=== PATIENT | female | born 1985 | race Caucasian/White ===

== ENCOUNTER → 2018-04-28 11:00 | Outpatient (CLI) | payer OTHER, SELFPAY ==
[2018-05-05 14:23] LABS: HPV APTIMA, High Risk Negative (Negative)
== END ==
PROVIDERS: Family Provider Family Medicine; PCP Family Medicine; Referring Provider Obstetrics & Gynecology; Visit Provider Obstetrics & Gynecology
DX: Z12.4 Encounter for screening for malignant neoplasm of cervix (principal)
CPT/HCPCS: 88175; G0145

== ENCOUNTER → 2018-04-29 09:00 | Outpatient (CLI) | payer OTHER, SELFPAY ==
[2018-04-29 09:58] LABS: Cholesterol 216 mg/dL (200); Glucose 97 mg/dL (74-106); High Density Lipoprotein 43 mg/dL; Thyroid Stim Hormone (TSH) 1.75 uIU/mL (0.358-3.74); Triglycerides 96 mg/dL; Very Low Density Lipoprotein 19 mg/dL (5-40)
[2018-05-01 14:06] LABS: DHEA Sulfate 110.9 ug/dL (84.8-378.0)
[2018-05-03 11:55] LABS: Testosterone Free 0.7 pg/mL (0.0-4.2)
[2018-05-05 14:23] LABS: 17-Hydroxyprogesterone 50 ng/dL (.)
== END ==
PROVIDERS: Family Provider Family Medicine; PCP Family Medicine; Visit Provider Obstetrics & Gynecology
DX: E28.2 Polycystic ovarian syndrome (principal)
CPT/HCPCS: 36415; 80061; 82627; 82947; 83498; 84402; 84443; 82626

== ENCOUNTER → 2018-12-15 | Outpatient (CLI) | payer OTHER, SELFPAY ==
[2018-08-02 09:00] VITALS: BMI 33.7
[2018-12-15 12:35] LABS: Absolute Lymphocyte Count 1.77 X10^3/ul (0.83-4.51); Absolute Neutrophil Count 2.8 X10^3/uL (2.0-7.7); Basophil# 0.02 X10^3/uL; Basophil% 0.4 % (0-1); Eosinophil# 0.12 X10^3/uL; Eosinophils% 2.4 % (0-5); Hematocrit 37.9 % (37-47); Hemoglobin 12.8 g/dl (12.0-15.0); Lymphocyte # 1.77 X10^3/ul (4.0); Lymphocyte % 34.8 % (19-41); Mean Corp Hgb Conc 33.8 g/gl (32-36); Mean Corpuscular Hgb 29.6 pg (27.0-32.0); Mean Corpuscular Volume 87.5 fL (81-99); Mean Platelet Vol. 11.4 fl (6.2-12.0); Monocyte# 0.33 X10^3/uL; Monocyte% 6.5 % (0-10); Neutrophil # 2.84 X10^3/uL (2.7-7.7); Neutrophil % 55.7 % (47-70); Platelet Count 257 K/mm3 (150-450); RBC Distribution Width CV 13.4 % (11.6-14.6); RBC Distribution Width SD 41.8 fl (35.1-43.9); Red Blood Count 4.33 M/mm3 (4.2-5.4); White Blood Count 5.1 K/mm3 (4.4-11.0)
[2018-12-15 12:40] LABS: POSITIVE COUNT NO; POSITIVE DIFFERENTIAL NO; POSITIVE MORPHOLOGY NO
[2018-12-15 13:09] LABS: AST(SGOT) 19 U/L (15-37); Alanine Aminotransfer ALT/SGPT 29 U/L (13-56); Albumin, Serum 3.6 g/dL (3.2-5.0); Alkaline Phosphatase 53 U/L (45-117); Anion Gap 8 (5-15); BUN 12 mg/dL (7-18); BUN/Creat Ratio 15.3 RATIO (10-20); Calcium,Total 8.7 mg/dL (8.5-10.1); Chloride 107 mmol/L (98-107); Creatinine, Serum 0.78 mg/dL (0.55-1.02); EST Glomerular Filtration Rate 90 mL/min (>60); Est Glom Filt Rate - Afr Amer 109 mL/min (>60); Ferritin 12 ng/mL (8-252); Globulin 3.5 g/dL (2.2-4.2); Glucose 90 mg/dL (74-106); Potassium 4.3 mmol/L (3.5-5.1); Protein, Total 7.1 g/dL (6.4-8.2); Sodium Level 141 mmol/L (136-145); Thyroid Stim Hormone (TSH) 1.44 uIU/mL (0.358-3.74)
== END | disposition home or self-care (01) ==
LOC: MFPLAB 10:43
PROVIDERS: Family Provider Family Medicine; PCP Family Medicine; Referring Provider Family Medicine; Visit Provider Family Medicine
DX: N92.0 Excessive and frequent menstruation with regular cycle (principal)
CPT/HCPCS: 36415; 80053; 82728; 84443; 85025

== ENCOUNTER 2019-05-31 19:20 | Inpatient (IN) | payer OTHER, SELFPAY ==
[2018-08-02 09:00] VITALS: BMI 33.7
[2019-05-31 20:40] LABS: Absolute Lymphocyte Count 2.02 X10^3/uL (0.83-4.51); Absolute Neutrophil Count 5.1 X10^3/uL (2.0-7.7); Basophil# 0.04 X10^3/uL; Basophil% 0.5 % (0-1); Eosinophil# 0.11 X10^3/uL; Eosinophils% 1.4 % (0-5); Hematocrit 38.3 % (37-47); Hemoglobin 12.9 g/dL (12.0-15.0); Lymphocyte # 2.02 X10^3/ul (4.0); Lymphocyte % 25.8 % (19-41); Mean Corp Hgb Conc 33.7 g/dL (32-36); Mean Corpuscular Hgb 30.5 pg (27.0-32.0); Mean Corpuscular Volume 90.5 fL (81-99); Mean Platelet Vol. 11.2 fl (6.2-12.0); Monocyte# 0.53 X10^3/uL; Monocyte% 6.8 % (0-10); NRBC Flagged by Analyzer 0 % (0-5); Neutrophil % 65.2 % (47-70); Platelet Count 238 K/mm3 (150-450); RBC Distribution Width CV 13.3 % (11.6-14.6); RBC Distribution Width SD 43.8 fl (35.1-43.9); Red Blood Count 4.23 M/mm3 (4.2-5.4); White Blood Count 7.8 K/mm3 (4.4-11.0)
[2019-05-31] MEDS: miSOPROStol 200 MCG Tablet 400 MCG VAGINAL (21:08)
--- NOTE | 2019-05-31 21:11 | HP.PCM_ITS ---
History Date of Admission: 05/31/19 Final BEVERLY: 10/16/19 Final BEVERLY Source: US <20 weeks Gestational age: 20 Weeks and 2 Days History of this : This is a 34 year-old, 2 para 1-0-0-1 presents at 20-2/7 weeks gestation with EDC of 10/16/2019 for induction due to intrauterine demise. Patient came to the office this week for her anatomy scan was found to have a 17-week size demise. She denies any vaginal bleeding or leaking of fluid. Her previous delivery was a section. Surgical History: Surgical History (Last Reviewed 08/02/18 @ 09:01 by Carmita Almanza) deliv due to previous difficult deliv, deliv, curr hospitaliz O99.89, Z87.59 H/O LEEP Z98.890 Allergies amoxicillin [From Augmentin] Adverse Reaction (Unknown, Verified 08/02/18 09:00) intolerant clavulanic acid [From Augmentin] Adverse Reaction (Unknown, Verified 08/02/18 09:00) intolerant Home Medications: Home Medications phentermine 37.5 mg tablet 37.5 mg PO QDAY #30 tab 08/05/18 Smoking Status: Never smoker History Past Pregnancies: Past Pregnancies Delivery Date Name GA/ Weeks Outcome Route Wt Infant Sex Labor Length Anesthesia Delivery Location Provider FOB Review of Systems Constitutional: Denies: Anorexia, Chills, Fever Eyes: Denies: Blurred vision Cardiovascular: Denies: Chest Pain, Edema Respiratory: Denies: Cough, Shortness of Breath Gastrointestinal: Reports: Abdominal Pain - mild cramping Genitourinary: Denies: Dysuria, Frequency Skin: Denies: Rash Neurological: Denies: Blurred vision Physical Exam General: Alert, Cooperative, No apparent distress HEENT: Normocephalic Cardiovascular: Regular rate Lungs: Normal air movement Abdomen: Soft, Non-Distended, Gravid, Appropriate for Gestational Age Extremities:: No edema Neurological: Cranial nerves II-XII grossly intact POSTAL SERVICE MAIL PROCESSOR: Normal external genitalia Estimated gestational size: Appropriate for gestational size Presentation: Cephalic Assessment/Plan All Active Problems (Last Reviewed 08/02/18 @ 09:01 by Carmita Almanza) BMI 33.0-33.9,adult (Acute) PCOS (polycystic ovarian syndrome) (Acute) Oligomenorrhea (Ruled-out) This is a 34 year-old, 2 para 1 at 20-2/7 weeks with 17-week size intrauterine demise. Risk benefits and alternatives to induction versus D&E were discussed with the patient, her questions were answered to her satisfaction she desired to proceed with induction. We discussed risk of Cytotec induction. Patient had 2 laminaria placed in the office today. The 2 sponges and 2 laminaria placed in the office were removed and counted. Discussed with the patient may she may have IV pain medication or epidural as she desires for pain control. She does desire genetic testing.
[2019-05-31 23:41] VITALS: BMI 32.3
[2019-06-01] MEDS: miSOPROStol 200 MCG Tablet 400 MCG VAGINAL (01:04)
[2019-06-01] MEDS: morphine 10 MG/ML Syringe IV ×2 (01:04→03:30)
[2019-06-01] MEDS: 0.9% Saline Lock 10 ML Syringe IV ×3 (01:05→03:37)
[2019-06-01] MEDS: Ondansetron 4 MG/2 ML Vial IV (03:30)
[2019-06-01] MEDS: Lactated Ringers 1,000 ML 50 ML IV (03:39)
[2019-06-01] MEDS: Lactated Ringers 500 ML 999 ML IV (03:42)
--- NOTE | 2019-06-01 04:49 | PCM.OPRPT ---
Vaginal Delivery Maternal Presentation: Medically Indicated Induction Method of Induction: Cytotec, - - Laminaria (done in the office) Medical Reason for Induction: - - intrauterine demise Amniotic Membrane Rupture Type: - - delivered intact sac/placenta with fetus Rupture of Membrane time: n/a Amniotic Fluid Description: Bloody Final BEVERLY: 10/16/19 Gestational age: 20 Weeks and 3 Days Date of Procedure: 06/01/19 Pre-Operative Diagnosis: intrauterine demise Post-Operative Diagnosis: same Surgery/ Procedure Performed: Spontaneous Vaginal Delivery Type of Anesthesia: - - IV medications Description of Procedure: The patient began to feel pressure. When she was examined, no cervix was identified and the sac was in the vaginal vault. The patient pushed and delivered the fetus and placenta intact. Bleeding was minimal. There were no lacerations. Fundus was firm. The membranes were then ruptured for some blood-tinged fluid and the cord was clamped and cut. With the uterus being firm, her minimal bleeding and the cytotec she has been receiving, will hold on pitocin for now and initiate if needed Placental Delivery Description: Spontaneous Placenta Disposition: Sent to Pathology Cord Entanglement: None Drain: - - none Estimated Blood Loss: 100 Infant A gender: Male (1 minute): 0 (5 minute): 0 Episiotomy Description: None Laceration: None Medications given after delivery: - - bleeding minimal, uterus firm, had misoprostol Complications: None
--- NOTE | 2019-06-01 05:00 | PLAC_PTH ---
PATIENT: GOMEZ ROWLAND LOC: [facility] U#:[id number] AGE/SX: 34/F ROOM: WP021 RE05/31/[address]: Dr. Therese Bess MD : [id number] BED: 1 DIS: 06/01/2019 SPEC #: [id number] RECD: 06/01/19 08:55 STATUS: SIDNEY RELavonne #: [id number] CHARLES: 06/01/19 05:[address]: Therese Bess DEPT: SURGICAL PATHOLOGY RECD BY: Carli Lamb ENTERED: 06/01/19 10:06 SP TYPE: PLACENTA OTHR DR: Dr. Ricardo Jacinto MD Tissues: Placenta, NOS Procedures: Surgery Specimen Level V HEADER OPERATION: Vaginal delivery PRE-OP DIAGNOSIS: IUFD, 20 weeks gestation age, 17 week size TISSUE SUBMITTED: Placenta MICROSCOPIC DIAGNOSIS Palmer placenta (61 gm): Umbilical cord - trivascular with no inflammation. Placental membranes - acute deciduitis with bacterial colonies. Placental disc - increased intraparenchymal fibrin plaques. AM:joan 06/02/19 COMMENT Case has been reviewed in consultation with Dr. Potter who concurs with the above diagnosis. IDC:SJ MICROSCOPIC DESCRIPTION Slides are reviewed. GROSS DESCRIPTION SPECIMEN: PLACENTA The specimen is received in container without fixative. One of the small sections of placenta is received in a small container measuring 3 x 2.5 x 1 cm. This piece Is submitted Anora studies. / CLINICAL INFORMATION: A. Weight: Not noted B. Gestational Age: 20 weeks C. Sex: Male PLACENTAL WEIGHT (POST FIXATION): 61 gm PLACENTAL DIMENSIONS: 10 x 8 x 1.5 cm PLACENTAL SHAPE: Usual ovoid PLACENTAL WEIGHT FOR GESTATIONAL AGE: Within 10-99th percentile MEMBRANES - Present A. Insertion: Marginal B. Site of rupture from edge: At edge of placental disc C. Color of membrane: Zaman-sommers D. Abnormalities: None UMBILICAL CORD - Present A. Color: Zaman-sommers B. Insertion: Paracentral C. Length: 6 m D. Diameter: 0.6 cm. It appears to be macerated. E. Number of vessels: Three F. Abnormalities: None PLACENTAL DISC - Present A. Color of surface: Zaman-sommers B. surface abnormalities: pink-red C. Maternal cotyledons: Intact with minimal tears D. Attached retro placental clot: No clot E. Cut surface: Dark red and spongy F. Lesions: None G. Separate clot: Absent SECTIONS SUBMITTED: 1. Membrane roll 2. Cord, end inked black 3. Placental disc, and maternal surfaces 4. Placental disc, and maternal surfaces 5. Placental disc, and maternal surfaces SJ:rg 06/01/19 TC:2 CPT: 87716 ADDENDUM ADDENDUM ADDENDUM ADDENDUM ADDEND ADDEND ADDEND [facility] 06/27/2019 14:50 ADDEND 06/27/2019 14:50 ADDEND 06/27/2019 14:50 ADDEND 06/27/2019 14:50 ADDEND 06/27/2019 14:50 ANORA MICROARRAY CHROMOSOME ANALYSIS WITH PARENTAL SUPPORT RESULT: Normal male MICROARRAY RESULT: arr(1-22)x2(XY)x1 CLINICAL INTERPRETATION: Normal male result Please see complete above mentioned report in EMR
--- NOTE | 2019-06-01 06:09 | DCINST_ITS ---
Discharge Diet: No Restrictions Discharge Activity: Return to Normal Activity, May Shower, May Take a Tub Bath - in 2 weeks Return to work on:: 06/19/19 May resume sexual activity in: 4-6 weeks Additional Activity Instructions:: Nothing in the vagina for 4-6 weeks. You may return to work/school in 6 weeks. Call your doctor if your incision/area has: Continuous Slow Oozing, Sudden Increased Bleeding, Increased Pain/ Swelling, Increased Redness, Foul Smelling Discharge Call your doctor if you observe: Fever of 101 or Higher Additional Instructions: If you experience any of the following, contact your healthcare provider. * Bleeding that soaks a pad every hour for 2 hours * Fever 100.4 or higher * Unrelieved incision or abdominal pain * Swelling, redness, discharge or bleeding from your incision or episiotomy site * Your incision begins to separate * Problems urinating (including inability to urinate or burning while urinating). * Visual changes * Severe headache * Flu-like symptoms * Pain or redness in one of both of your breasts * Pain, warmth, tenderness or swelling in your legs, especially the calf area * Frequent nausea and vomiting * Symptoms of depression or anxiety If you experience any of the following, call 911 or go to the nearest Emergency Room. * Chest pain * Problems breathing * Seizure activity * Partial or complete paralysis of a body part, slurred speech, weakness or drooping of the face, or a sudden inability to walk or hold your balance Allergies/Adverse Reactions: Allergies amoxicillin [From Augmentin] Adverse Reaction (Unknown, Verified 05/31/19 23:57) Abd cramps/diarrhea clavulanic acid [From Augmentin] Adverse Reaction (Unknown, Verified 05/31/19 23:57) Abd cramps/diarrhea When: Call to make an appointment with your doctor in 6 weeks. If you had elevated Blood Pressure or 4th degree laceration you will need to be seen in 2 weeks. Primary Care Physician: Ricardo Jacinto MD [Primary Care Provider] - Test Results: Test results from this visit will be discussed in further detail at your follow- up appointment, if applicable.
--- NOTE | 2019-06-01 06:41 | NURSING ---
fetus weighs 122grams, length 8 inches and head circumference 4.75 inches.
[2019-06-01] MEDS: Naproxen 250 MG Tablet 500 MG PO (08:04)
[2019-06-01 08:14] VITALS: BP 100/52; PULSE 65; RESP 14; TEMP 37.1
--- NOTE | 2019-06-01 08:15 | PCM.PN.OB ---
Subjective: Patient seen at bedside, doing well. Patient reports good pain control. Mild lochia. Patient requesting DC home today. - Physical Exam Vitals/I&O's: Weight: 85.638 kg Body Mass Index (BMI) 32.3 Intake and Output for Last 24 Hours 05/30/19 05/31/19 06/01/19 23:59 23:59 23:59 Intake Total 502.5 / 502.5 Balance 502.5 / 502.5 Laboratory Results 05/31/19 20:23: WBC 7.8, RBC 4.23, Hgb 12.9, Hct 38.3, MCV 90.5, MCH 30.5, MCHC 33.7, RDW Std Deviation 43.8, RDW Coeff of Nael 13.3, Plt Count 238, MPV 11.2, Immature Gran % (Auto) 0.300, Neut % (Auto) 65.2, Lymph % (Auto) 25.8, Dillon % (Auto) 6.8, Eos % (Auto) 1.4, Baso % (Auto) 0.5, Absolute Neuts (auto) 5.1, Absolute Lymphs (auto) 2.02, Nucleated RBC % 0 05/31/19 20:23: Blood Type O POSITIVE, Antibody Screen NEGATIVE Current Medications Acetaminophen (Tylenol) 1,000 mg PO Q8H PRN PRN PRN Reason: Pain Score 1-3/10 Bisacodyl (Dulcolax) 10 mg RECTAL UD PRN PRN Reason: If no BM Dibucaine (Dibucaine) 1 applic TOPICAL TID PRN PRN; Protocol PRN Reason: Discomfort Hydrocortisone (Hytone) 1 applic TOPICAL TID PRN PRN; Protocol PRN Reason: Discomfort Methylergonovine Maleate (Methergine) 0.2 mg IM X1 PRN PRN Reason: Excess bleeding/uterine atony Naproxen (Naprosyn) 500 mg PO Q8H PRN PRN PRN Reason: Pain Score 4-10/10 Last Admin: 06/01/19 08:04 Dose: 500 mg Documented by: Ondansetron HCl (Zofran) 4 mg IV Q4H PRN PRN PRN Reason: Nausea Prochlorperazine Edisylate (Compazine Iv) 10 mg IV Q6H PRN PRN PRN Reason: NAUSEA/VOMITING Senna/Docusate Sodium (Senokot-S, Vera-Colace) 1 - 2 tablet PO DAILY PRN PRN PRN Reason: Constipation Simethicone (Mylicon) 80 mg PO PCHS PRN PRN Reason: Indigestion/Stomach pain Sodium Chloride () 5 - 15 ml IV UD PRN PRN Reason: SALINE FLUSH Medical Necessity - Tobacco Use Smoking Status: Never smoker Assessment/Plan All Active Problems (Last Reviewed 08/02/18 @ 09:01 by Carmita Almanza) BMI 33.0-33.9,adult (Acute) PCOS (polycystic ovarian syndrome) (Acute) Oligomenorrhea (Ruled-out) PPD#0 s/p demise - vaginal delivery at 20 weeks pt requesting anora testing - to be done when patient is discharged dc home follow in office in 1-2 weeks
--- NOTE | 2019-06-01 12:13 | CASEMGMT ---
Social Work Labor and Delivery Referral Source: Jazmin Vargas RN Reason for referral: Support and resources related to loss Summary: Chart reviewed and noted 17 week loss found at 20 week visit for anatomy scan. Update received from RN. Met with patient/mother of baby (MOB) in room. Also present father of baby (FOB) Tyler Mendez. Introduced to self and reason for visit. Condolences offered. Checked in with how MOB and FOB are doing right now, which MOB states as good as can be expected. MOB reports to be looking forward to going home and just trying to get back to some type of normalcy. 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 FOB works but reports plan to return to work soon. MOB has a 9 year old daughter at home as well. MOB indicates to have a support network in place, with the family seeing a therapist at [facility]. MOB states has already called and left a message to schedule an appointment. MOB tense, sad, teary eyed several times during social work visit, holding FOB's hand. [place] and parents were able to hold [place], which MOB states was helpful. Supportive listening offered. Provided MOB and FOB with some reading material on parents and grief, grief through the holidays, online resources infant loss, and local mental health resources. MOB accepted information offered. Also included this technical writer and editor's card in case MOB has any questions down the road. No other service requested. Plan: MOB and FOB to home today. Grieving resources provided. -REBECCA Fleming, EVENT SALES ASSISTANT
[2019-06-02 13:07] LABS: Pathology Specimen OB SEE PATHOLOGY REPORT
[2019-06-05 09:36] LABS: Pathology Specimen OB SEE PATHOLOGY REPORT
[2019-06-27 09:03] LABS: Pathology Specimen OB SEE PATHOLOGY REPORT
== END 2019-06-01 09:00 | disposition home or self-care (01) | DRG 805 ==
PROVIDERS: Obstetrics & Gynecology; Admitting Provider Obstetrics & Gynecology; Family Provider Family Medicine; PCP Family Medicine; Referring Provider Obstetrics & Gynecology; Visit Provider Obstetrics & Gynecology
DX: O02.1 Missed abortion (principal); O41.1420 Placentitis, second trimester, not applicable or unspecified; Z37.1 Single stillbirth; Z3A.20 20 weeks gestation of pregnancy
CPT/HCPCS: 85025; 86850; 86900; 86901; 88307; 99218; J7120; A4216; G0378; J2405

== ENCOUNTER → 2019-10-03 | Outpatient (CLI) | payer OTHER, SELFPAY ==
[2019-10-03 12:51] LABS: T4 Free Direct 0.93 ng/dL (0.76-1.46); Thyroid Stim Hormone (TSH) 0.98 uIU/mL (0.358-3.74)
== END | disposition home or self-care (01) ==
LOC: MFPLAB 10:33
PROVIDERS: PCP Family Medicine; Referring Provider Family Medicine; Visit Provider Family Medicine
DX: L65.9 Nonscarring hair loss, unspecified (principal)
CPT/HCPCS: 36415; 84439; 84443

== ENCOUNTER → 2020-02-02 | Outpatient (CLI) | payer OTHER, SELFPAY | END | disposition home or self-care (01) | PROVIDERS: PCP Family Medicine; Referring Provider Registered Nurse; Visit Provider Registered Nurse | DX: Z11.59 Encounter for screening for other viral diseases (principal) | CPT/HCPCS: 87635; U0003 ==

== ENCOUNTER 2020-04-01 05:17 | Inpatient (IN) | payer OTHER, SELFPAY ==
--- NOTE | 2020-03-27 10:59 | HP.PCM_ITS ---
History and Physical Date of Admission: 04/01/20 HPI: The patient is a 34 year old female presenting for pre-operative visit. She is scheduled for?, for?h/o prevoius c/s and history of demise on?04/01/2020. ??Procedure discussed along with risks, benefits and complications. ?Other alternatives discussed for management. Consent form signed??Yes.? PAST MEDICAL HISTORY PAST MEDICAL HISTORY Diagnosis Date ? Anemia ? ? Atypical glandular cells of undetermined significance (EVAN) on cervical Pap smear 02/27/2016 ? Bilateral ovarian cysts ? ? follicular; TVUS 10/2011 ? Depressive disorder, not elsewhere classified ? ? Infertility, female ? ? PCOS (polycystic ovarian syndrome) ? ? pmh 06/16/05 ? HGSIL-LEEP ? Vaginal candidiasis ? ? Varicella without mention of complication @ 4yrs of age ? ? PAST SURGICAL HISTORY PAST SURGICAL HISTORY Procedure Laterality Date ? DELIVERY ONLY ? 12/2009 ? , low transverse ? IUD REMOVAL ([facility])_*[place] ? 02/22/2016 ? At [facility] ? OFFICE LEEP ? 2004 ? PAST SURGICAL HISTORY OF ? 3RD GRADE ? NEEDLE REMOVED FROM FOOT ? PAST SURGICAL HISTORY OF ? ? ? WISDOM TEETH EXTRACTED ? ? CURRENT MEDICATIONS Current Outpatient Medications Medication Sig Dispense Refill ? insulin NPH (HumuLIN N,NovoLIN N) pen Inject 40 Units subcutaneously as directed. 32 units at bedtime and 8 units with breakfast 2 Pen 2 ? Insulin Syringe-Needle U-100 0.5 mL 29 gauge x 1/2 use one insulin pen needle daily for insulin injection, brand appropriate to match insulin pen 30 Each 3 ? blood sugar diagnostic test strip 1 Strip four times daily. Use as instructed 120 Strip 9 ? Lancets lancets 1 Each four times daily. Use as instructed 120 Each 9 ? Urine Glucose-Ketones Test (KETO-DIASTIX) strp 1 Strip four times daily. 120 Strip 9 ? labetalol (TRANDATE) 100 mg tablet take 1 tablet by mouth at bedtime for MIGRAINE PREVENTION ? ? ? chlorpheniramine (CHLORTRIMETON) 4 mg tablet take 1 tablet by mouth at bedtime and every 4 hours TO PREVENT MORNING HEADACHE ? ? ? vit 91/iron/folic/dha ( + DHA ORAL) Take by mouth. Taking DHA and seperatly ? ? ? OMEPRAZOLE ORAL Take by mouth. ? ? ? Jhbewrff-Zk-Eam-Fe-FA ( VITAMIN) tab Take 1 tablet by mouth. ? ? ? albuterol HFA (PROVENTIL HFA, VENTOLIN HFA) 90 mcg/actuation inhaler Inhale 2 Puffs as instructed every 6 hours as needed for Wheezing/Shortness of Breath. 1 Inhaler 2 ? No current facility-administered medications for this visit.? ? ALLERGIES:?Augmentin [Amoxicillin-Pot Clavulanate] ? PERSONAL HISTORY:? SOCIAL HISTORY Social History ? Tobacco Use ? Smoking status: Never Smoker ? Smokeless tobacco: Never Used Substance Use Topics ? Alcohol use: Not Currently ? ? Comment: ocaasionally ? Drug use: No ? ? Comment: last marijuana use in 2008 ? FAMILY HISTORY:? FAMILY HISTORY FAMILY HISTORY Problem Relation Age of Onset ? Depression Father ? ? Depression Mother ? ? Thyroid Mother ? ? No Known Problems Sister ? ? No Known Problems Brother ? ? Diabetes Maternal Grandmother ? ? Dementia Maternal Grandfather ? ? Breast Cancer Paternal Grandmother ? ? Aneurysm Paternal Grandmother ? ? Colon Cancer Paternal Grandfather ? ? Heart Attack Paternal Grandfather ? ? No Known Problems Daughter ? ? other (IUFD 20 weeks) Son ? ? REVIEW OF SYMPTOMS: GENERAL: denies fevers or chills ENDOCRINOLOGY: has not been on steroids Cardiology : denies palpitations or chest pain Respiratory: denies SOB or cough Hematology: denies history of prolonged bleeding or easy bruising or VTE Allergy: Denies history of personal or family history of allergy to anesthesia ? ? PHYSICAL EXAMINATION: ? VITALS:?Blood pressure 119/78, last menstrual period 07/08/2019. ? GENERAL:??The patient is well nourished, well hydrated in no acute distress. ?, The patient is oriented to time, place, and person. NECK:?Supple. No lynphadenopathy, normal thyroid, no thyromegaly. LUNGS:?Clear to auscultation bilaterally. no wheezes, rhonchi or rales HEART:?Regular rate and rhythm, Normal heart sounds and No murmurs or gallops abd- soft, nontender, gravid ext- trace edema ? IMPRESSION:?34 YOF??who will be 38 2/7 weeks on 04/01/2020 for repeat c/s that day due to h/o previous IUFD and previous c/s ? ? PLAN:???The risks/benefits/alternatives and personal involved for the planned?c- section?were reviewed with the patient. Her questions were answered to her satisfaction and she desires to proceed. ?Consent was signed. ?I reviewed with her postop instructions and expectations. ? ? I have reviewed and updated past medical and surgical history, medications and allergies?
[2020-04-01] VITALS (18 sets, daily range): BP systolic 85–116; BP diastolic 39–78; PULSE 61–86; RESP 14–18; TEMP 35.9–36.8; O2SAT 96–100; BMI 36.3
[2020-04-01] MEDS: Lactated Ringers 1,000 ML 999 ML IV (05:55)
[2020-04-01 06:06] LABS: Bedside Glucose 75 mg/dL (70-110)
[2020-04-01 06:08] LABS: Absolute Lymphocyte Count 1.59 X10^3/uL (0.83-4.51); Absolute Neutrophil Count 6.3 X10^3/uL (2.0-7.7); Basophil# 0.03 X10^3/uL; Basophil% 0.3 % (0-1); Eosinophil# 0.07 X10^3/uL; Eosinophils% 0.8 % (0-5); Hematocrit 29.3 % (37-47); Hemoglobin 9.4 g/dL (12.0-15.0); Lymphocyte # 1.59 X10^3/ul (4.0); Lymphocyte % 18.4 % (19-41); Mean Corp Hgb Conc 32.1 g/dL (32-36); Mean Corpuscular Hgb 26.9 pg (27.0-32.0); Mean Corpuscular Volume 83.7 fL (81-99); Mean Platelet Vol. 12.3 fl (6.2-12.0); Monocyte# 0.59 X10^3/uL; Monocyte% 6.8 % (0-10); NRBC Flagged by Analyzer 0 % (0-5); Neutrophil # 6.31 X10^3/uL (2.7-7.7); Neutrophil % 72.9 % (47-70); Platelet Count 183 K/mm3 (150-450); RBC Distribution Width CV 13.7 % (11.6-14.6); RBC Distribution Width SD 41.8 fl (35.1-43.9); White Blood Count 8.7 K/mm3 (4.4-11.0)
[2020-04-01] MEDS: Acetaminophen 500 MG Tablet 1000 MG PO ×3 (06:09→17:54)
[2020-04-01] MEDS: Lactated Ringers 1,000 ML 150 ML IV (06:56)
[2020-04-01] MEDS: Sodium Citrate/Citric Acid 30 ML UDC PO (07:14)
[2020-04-01] MEDS: Cefazolin 2 GM in 0.9% Normal Saline 100 ML IV (07:20)
--- NOTE | 2020-04-01 07:36 | PCM.OPRPT ---
Delivery Classification: Scheduled Final BEVERLY: 04/13/20 Final BEVERLY Source: US <20 weeks Gestational age: 38 Weeks and 2 Days toll booth operator: Jagjit Mai ms3 Type of Anesthesia:: Spinal Special Medications: duramorph Implants Used: none Date of Procedure: 04/01/20 Pre-Operative Diagnosis: prevoius c/s, h/o IUFD, maternal obesity, BMI 36, gestational DM on insulin Post-Operative Diagnosis: same Indications for : Repeat Elective Description of Procedure: The patient was taken to the operating room. She was prepped and draped in the dorsal supine position with a leftward tilt. A Pfannenstiel skin incision was made approximately 2 cm above the symphysis pubis and carried through to underlying layer fascia with the scalpel. The fascia was incised incised in the midline and extended laterally with the Cash scissors. The fascia was dissected off the rectus muscles with blunt and sharp dissection. The rectus muscles were in the midline and the peritoneum was entered bluntly. The peritoneal incision was stretched and the bladder blade was placed. The uterine incision was made in a low transverse fashion with the scalpel and extended superiorly and inferiorly with blunt dissection. The amniotic membranes were ruptured bluntly and clear amniotic fluid returned. The 's head was brought to the incision in the flexed position and delivered without difficulty. The remainder of the was delivered with gentle traction and fundal pressure in the standard fashion. The mouth and nares were bulb suctioned. The cord was clamped and cut as the was stimulated. Cord clamping was delayed. The was handed off to the waiting nursing staff. The placenta was delivered with fundal massage and gentle traction in the standard fashion. The uterus was exteriorized and cleared of all clots and debris. The cervix was dilated with a ring forcep. The uterine incision was closed with #1 Vicryl in a running locked fashion. The hematoma noted along the right side of the broad ligament. A through and through suture through the lower uterine segment and around the entire broad ligament was placed and cinched down. The tube was held out of the way. This was tied down and the hematoma was not extending. A second layer of the same suture was used in an imbricating fashion. The incision was examined and was found to be hemostatic. The hematoma was noted to be stable at this time. Taylor was placed over the lower uterine segment. Trickle team's gloves were changed. The uterus was placed back into the peritoneal cavity and hemostasis was again confirmed. The rectus muscles were examined and any bleeding was Bovie cauterized. The parietal peritoneum and rectus muscles were closed en bloc with an 0 Vicryl running suture. The rectus fascia was examined and any bleeding was Bovie cauterized and the rectus fascia was closed with 1 Vicryl suture in a running standard fashion. The subcutaneous tissue was examining and any bleeding was Bovie cauterized. The subcutaneous tissue was reapproximated with 3-0 Vicryl suture. The skin was closed in a subcuticular fashion by the AUTOPSY ASSISTANT with me present in the labor and delivery suite. I performed the remainder of the procedure with assistance. All sponge, lap, and needle counts were correct. The patient was taken to her room for recovery in a stable condition. Start time 1142 stop time 0825 Amniotic Membrane Rupture Type: Artificial Amniotic Fluid Description: Clear Placenta Disposition: [facility] Specimen(s) sent to pathology: none Drain: Madison to straight drain Fluids Replaced: 600cc Cord Entanglement: None Cord Vessel Description: 3 Vessels Esitmated Blood Loss (ml): 600 Infant Gender: Female - Tori (1 minute): 8 (5 minute): 9 Delayed cord clamping: Yes Antibiotic Given: Ancef 2 grams IV x1 Complications: None - Admit VTE Documentation VTE Present on Admission: No VTE Mechan Device Prophylaxis: SCD's VTE Pharm Prophylaxis ordered?: Yes
[2020-04-01] MEDS: Oxytocin 30 units/NS 500 ml 30 UNITS/500 ML IV.SOLN 167 UNITS IV (08:48)
[2020-04-01 09:46] LABS: Bedside Glucose 88 mg/dL (70-110)
[2020-04-01] MEDS: Lactated Ringers 1,000 ML 100 ML IV (11:52)
--- NOTE | 2020-04-01 13:54 | NURSING ---
Talked with Dr Bess and informed of 200cc urine out since returning to room. Drinking well 1400cc currently. New orders given and draw CBC now. aware of blood pressure 85/50 HR 77 asymptomatic.
[2020-04-01] MEDS: Lactated Ringers 500 ML IV.SOLN. IV (14:03)
[2020-04-01] MEDS: Ketorolac 30 MG/ML Syringe IV ×2 (14:04→20:33)
[2020-04-01 14:30] LABS: Hematocrit 24.3 % (37-47); Hemoglobin 7.8 g/dL (12.0-15.0); Mean Corp Hgb Conc 32.1 g/dL (32-36); Mean Corpuscular Hgb 27.5 pg (27.0-32.0); Mean Corpuscular Volume 85.6 fL (81-99); Mean Platelet Vol. 11.9 fl (6.2-12.0); Platelet Count 138 K/mm3 (150-450); RBC Distribution Width CV 13.6 % (11.6-14.6); RBC Distribution Width SD 42.7 fl (35.1-43.9); Red Blood Count 2.84 M/mm3 (4.2-5.4); White Blood Count 11.6 K/mm3 (4.4-11.0)
--- NOTE | 2020-04-01 14:52 | NURSING ---
Dr Bess notified of lab results. orders given.
[2020-04-01 17:35] LABS: Hematocrit 25.8 % (37-47); Hemoglobin 8.3 g/dL (12.0-15.0); Mean Corp Hgb Conc 32.2 g/dL (32-36); Mean Corpuscular Hgb 27.4 pg (27.0-32.0); Mean Corpuscular Volume 85.1 fL (81-99); Mean Platelet Vol. 11.8 fl (6.2-12.0); Platelet Count 149 K/mm3 (150-450); RBC Distribution Width CV 13.7 % (11.6-14.6); RBC Distribution Width SD 42.5 fl (35.1-43.9); Red Blood Count 3.03 M/mm3 (4.2-5.4); White Blood Count 10.8 K/mm3 (4.4-11.0)
[2020-04-01 17:45] LABS: Partial Thromboplast Time 26.2 Seconds (24.1-36.2); Prothrombin Time (Protime)PT. 13.1 SECONDS (11.7-14.9)
[2020-04-01 17:46] LABS: Fibrinogen 304 mg/dl (203-444)
[2020-04-01] MEDS: 0.9% Saline Lock 10 ML Syringe IV (20:34)
[2020-04-02 00:19] VITALS: BP 99/58; PULSE 71; RESP 16; TEMP 36.6; O2SAT 99
[2020-04-02] MEDS: Acetaminophen 500 MG Tablet 1000 MG PO ×4 (00:20→17:58)
[2020-04-02] MEDS: Ketorolac 30 MG/ML Syringe IV ×2 (01:26→08:24)
[2020-04-02] MEDS: 0.9% Saline Lock 10 ML Syringe IV ×3 (01:26→11:54)
[2020-04-02 04:25] VITALS: BP 92/37; PULSE 75; RESP 18; TEMP 36.6; O2SAT 95
[2020-04-02 04:48] LABS: Hematocrit 23.1 % (37-47); Hemoglobin 7.3 g/dL (12.0-15.0); Mean Corp Hgb Conc 31.6 g/dL (32-36); Mean Corpuscular Volume 85.6 fL (81-99); Mean Platelet Vol. 11.5 fl (6.2-12.0); Platelet Count 129 K/mm3 (150-450); RBC Distribution Width CV 13.8 % (11.6-14.6); RBC Distribution Width SD 42.9 fl (35.1-43.9); White Blood Count 8.7 K/mm3 (4.4-11.0)
[2020-04-02 04:55] LABS: Bedside Glucose 110 mg/dL (70-110)
[2020-04-02 08:09] VITALS: BP 108/60; PULSE 87; RESP 16; TEMP 36.6; O2SAT 95
[2020-04-02 08:25] LABS: Bedside Glucose 90 mg/dL (70-110)
--- NOTE | 2020-04-02 08:44 | PCM.PN.OB ---
Subjective: Pain well controlled, average lochia, denies lightheadedness or dizziness when up and ambulating. Urinating and tolerating regular diet without difficulty. - Physical Exam Vitals/I&O's: Vital Signs Temp Pulse Resp BP Pulse Ox 97.8 F 87 16 108/60 95 04/02/20 08:09 04/02/20 08:09 04/02/20 08:09 04/02/20 08:09 04/02/20 08:09 Oxygen Delivery Method Room Air Weight: 96.2 kg Body Mass Index (BMI) 36.3 Intake and Output for Last 24 Hours 03/31/20 04/01/20 04/02/20 23:59 23:59 23:59 Intake Total 3660 / 3660 Output Total 750 / 750 480 / 480 Balance 2910 / 2910 -480 / -480 General: Alert, Cooperative, No apparent distress Abdomen: Soft, Distended - Moderately, softly, Tender - Appropriately, - - Fundus firm below umbilicus Skin: Incision - The bandage is clean dry and intact Laboratory Results 04/01/20 05:55: Crossmatch See Detail 04/01/20 09:35: POC Glucose 88 04/01/20 14:15: WBC 11.6 H, RBC 2.84 L, Hgb 7.8 L, Hct 24.3 L, MCV 85.6, MCH 27.5, MCHC 32.1, RDW Std Deviation 42.7, RDW Coeff of Nael 13.6, Plt Count 138 L, MPV 11.9 04/01/20 17:10: Fibrinogen 304 04/01/20 17:10: WBC 10.8, RBC 3.03 L, Hgb 8.3 L, Hct 25.8 L, MCV 85.1, MCH 27.4, MCHC 32.2, RDW Std Deviation 42.5, RDW Coeff of Nael 13.7, Plt Count 149 L, MPV 11.8 04/01/20 17:10: PT 13.1, INR 1.0, APTT 26.2 04/02/20 04:27: POC Glucose 110 04/02/20 04:30: WBC 8.7, RBC 2.70 L, Hgb 7.3 L, Hct 23.1 L, MCV 85.6, MCH 27.0, MCHC 31.6 L, RDW Std Deviation 42.9, RDW Coeff of Nael 13.8, Plt Count 129 L, MPV 11.5 04/02/20 08:20: POC Glucose 90 Current Medications Acetaminophen (Tylenol) 1,000 mg PO Q6 [facility] Last Admin: 04/02/20 06:19 Dose: 1,000 mg Documented by: Bisacodyl (Dulcolax) 10 mg RECTAL UD PRN PRN Reason: If no BM Dextrose (D50w Syringe) 0 gm IV X1 PRN; Protocol PRN Reason: Hypoglycemia Glucagon () 1 mg IM .X1 PRN PRN Reason: Hypoglycemia Hydrocortisone (Hytone) 1 applic TOPICAL TID PRN PRN; Protocol PRN Reason: Discomfort Naloxone HCl 4 mg/ Dextrose 504 mls @ 0 mls/hr IV .Q0M PRN; Protocol PRN Reason: To maintain Resp. rate >10 Ketorolac Tromethamine (Toradol (Bkc)) 30 mg IV Q6H [facility] Stop: 04/03/20 08:01 Last Admin: 04/02/20 08:24 Dose: 30 mg Documented by: Methylergonovine Maleate (Methergine) 0.2 mg IM X1 PRN PRN Reason: Uterine Atony Naloxone HCl (Narcan) 0.02 mg IV Q1M PRN PRN Reason: RR <10 and pt unresponsive Naproxen (Naprosyn) 500 mg PO Q8 [facility] Ondansetron HCl (Zofran) 4 mg IV Q4H PRN PRN PRN Reason: Nausea Oxycodone HCl (Oxyir) 5 - 10 mg PO Q4H PRN PRN PRN Reason: Pain Score 4-10/10 Prochlorperazine Edisylate (Compazine Iv) 10 mg IV Q6H PRN PRN PRN Reason: NAUSEA Senna/Docusate Sodium (Senokot-S, Vera-Colace) 1 - 2 tablet PO DAILY [facility] Last Admin: 04/01/20 11:53 Dose: Not Given Documented by: Simethicone (Mylicon) 80 mg PO PCHS PRN PRN Reason: Indigestion/stomach pain Last Admin: 04/01/20 20:59 Dose: 80 mg Documented by: Sodium Chloride () 5 - 15 ml IV UD PRN PRN Reason: SALINE FLUSH Last Admin: 04/02/20 01:26 Dose: 10 ml Documented by: Medical Necessity - Tobacco Use Smoking Status: Never smoker Assessment/Plan All Active Problems (Last Reviewed 03/13/20 @ 11:14 by Chana Donahue) Segmental and somatic dysfunction of pelvic region (Acute) Segmental and somatic dysfunction of sacral region (Acute) Back pain (Acute) BMI 33.0-33.9,adult (Acute) PCOS (polycystic ovarian syndrome) (Acute) Oligomenorrhea (Ruled-out) Postoperative day #1 status post repeat section. Patient is doing well. She has chronic antepartum anemia, mild superimposed acute blood loss anemia. Patient is tolerating the anemia well. Hemoglobin seems stable. Will recheck tomorrow. We will give IV iron infusion and restart vitamins to help improve anemia more quickly. Will hold on transfusion unless hemoglobin drops further or patient becomes symptomatic. Patient agrees with this plan. He is breast-feeding and doing well. Blood glucose was mildly elevated this morning, patient was reassured. Repeat was 90. Will discontinue glucose checks at this time. Recommend 2-hour glucose challenge test after 6-week visit. Patient agrees with this plan
[2020-04-02] MEDS: Sodium Ferric Gluconat 250 MG in 0.9% Normal Saline 250 ML 135 MG IV (09:51)
[2020-04-02] MEDS: Senna/Docusate Sodium 1 Tablet PO (10:01)
[2020-04-02 10:06] LABS: Vitamin B12 442 pg/mL (211-911)
[2020-04-02 10:09] LABS: Ferritin 7 ng/mL (8-252); Iron Binding Capacity,Total 419 ug/dL (250-450)
[2020-04-02] MEDS: Naproxen 250 MG Tablet 500 MG PO ×2 (14:38→22:10)
[2020-04-02] MEDS: Prenatal Vits Tablet 1 TABLET PO (14:39)
[2020-04-02 15:02] VITALS: BP 118/71; PULSE 75; RESP 16; TEMP 36.7
[2020-04-02 19:33] VITALS: BP 116/68; PULSE 81; RESP 18; TEMP 36.8; O2SAT 95
--- NOTE | 2020-04-02 20:32 | PCM.OPRPT ---
Delivery Classification: SUNSHINE Final BEVERLY: 04/08/20 Final BEVERLY Source: US <20 weeks Gestational age: 39 Weeks and 1 Days on call: Garret To MS3 Type of Anesthesia:: Epidural Special Medications: duramorph, maria luisa, surgicel fibrillar Implants Used: none Date of Procedure: 04/02/20 Pre-Operative Diagnosis: Persistent category 2 heart tracing, will intolerance of labor, persistent occiput posterior position, gestational diabetes, maternal obesity with BMI of 36 Post-Operative Diagnosis: Same Indications: See preoperative diagnoses Description of Procedure: The patient was taken to the operating room. She was prepped and draped in the dorsal supine position with a leftward tilt. A Pfannenstiel skin incision was made approximately 2 cm above the symphysis pubis and carried through to underlying layer fascia with the scalpel. The fascia was incised incised in the midline and extended laterally with the Cash scissors. The fascia was dissected off the rectus muscles with blunt and sharp dissection. The rectus muscles were in the midline and the peritoneum was entered bluntly. The peritoneal incision was stretched and the bladder blade was placed. The uterine incision was made in a low transverse fashion with the scalpel and extended superiorly and inferiorly with blunt dissection. The amniotic membranes were ruptured again at the hysterotomy incision bluntly and clear amniotic fluid returned. The infant's head was brought to the incision in the flexed position and delivered without difficulty. The remainder of the infant was delivered with gentle traction and fundal pressure in the standard fashion. The mouth and nares were bulb suctioned. The cord was clamped and cut as the infant was stimulated. Cord clamping was delayed. The infant was handed off to the waiting nursing staff. The placenta was delivered with fundal massage and gentle traction in the standard fashion. The uterus was exteriorized and cleared of all clots and debris. . The uterine incision was closed with #1 Vicryl in a running locked fashion. A second layer of the same suture was used in an imbricating fashion. A [id number] suture was needed around the right lateral portion of the incision to control a small hematoma and several [id number]'s were needed to obtain hemostasis of a bleeding sinus. There is still a small amount of oozing along the lateral edges of the incision. Some fibrillar was placed in these areas and pressure was held for 2 minutes and hemostasis was noted. The incision was examined and was found to be hemostatic. The uterus was placed back into the peritoneal cavity and hemostasis was again confirmed. The rectus muscles were examined and any bleeding was Bovie cauterized. The parietal peritoneum and rectus muscles were closed en bloc with an 0 Vicryl running suture. The surgical teams outer gloves were then changed. The rectus fascia was examined and any bleeding was Bovie cauterized and the rectus fascia was closed with 0 PDS suture in a running standard fashion. The subcutaneous tissue was examining and any bleeding was Bovie cauterized. The subcutaneous tissue was reapproximated with 3-0 Vicryl suture. The skin was closed in a subcuticular fashion. I performed the entire procedure with assistance. All sponge, lap, and needle counts were correct. The patient was taken to her room for recovery in a stable condition. Start time 1940 Delivery time 1943 Stop time 2027 Amniotic Membrane Rupture Type: Artificial Amniotic Fluid Description: Clear Placenta Disposition: Sent to Pathology Drain: [place] to straight drain Fluids Replaced: 1000cc Cord Entanglement: Around neck x 1, loose Nuchal Cord Compression: Without compression Cord Vessel Description: 3 Vessels Infant Gender: Male - Da Vi (pronounced Da Vee) (1 minute): 8 (5 minute): 9 Delayed cord clamping: Yes Antibiotic Given: Ancef 2 grams IV x1, Zithromax 500 mg/5 mL X1 Complications: None - Admit VTE Documentation VTE Present on Admission: No VTE Mechan Device Prophylaxis: SCD's VTE Pharm Prophylaxis ordered?: Yes
[2020-04-03] MEDS: Acetaminophen 500 MG Tablet 1000 MG PO ×3 (00:30→12:16)
[2020-04-03 01:46] VITALS: BP 118/72; PULSE 85; RESP 16; TEMP 36.4; O2SAT 97
[2020-04-03 04:45] LABS: Hematocrit 23.5 % (37-47); Hemoglobin 7.6 g/dL (12.0-15.0); Mean Corp Hgb Conc 32.3 g/dL (32-36); Mean Corpuscular Hgb 27.3 pg (27.0-32.0); Mean Corpuscular Volume 84.5 fL (81-99); Mean Platelet Vol. 11.4 fl (6.2-12.0); Platelet Count 153 K/mm3 (150-450); RBC Distribution Width CV 13.8 % (11.6-14.6); RBC Distribution Width SD 43.1 fl (35.1-43.9); Red Blood Count 2.78 M/mm3 (4.2-5.4); White Blood Count 10.6 K/mm3 (4.4-11.0)
[2020-04-03] MEDS: Naproxen 250 MG Tablet 500 MG PO (06:18)
[2020-04-03] MEDS: 0.9% Saline Lock 10 ML Syringe IV (06:19)
--- NOTE | 2020-04-03 08:12 | PCM.PN.OB ---
Subjective: Patient is doing well this morning. Pain controlled without opiate pain medication. She is ambulating and voiding without difficulty. Tolerating regular diet. She is passing gas. Lochia normal. She denies any lightheadedness, dizziness, shortness of breath. No chest pain or leg pain. She desires to go home today. - Physical Exam Vitals/I&O's: Vital Signs Temp Pulse Resp BP Pulse Ox 97.5 F L 85 16 118/72 97 04/03/20 01:46 04/03/20 01:46 04/03/20 01:46 04/03/20 01:46 04/03/20 01:46 Oxygen Delivery Method Room Air Weight: 212 lb 1.355 oz Body Mass Index (BMI) 36.3 Intake and Output for Last 24 Hours 04/01/20 04/02/20 04/03/20 23:59 23:59 23:59 Intake Total 3660 / 3660 270 / 270 Output Total 750 / 750 480 / 480 Balance 2910 / 2910 -210 / -210 General: Alert, No apparent distress HEENT: Atraumatic Abdomen: Soft, Non-Distended, - - ATTP, FF@U, dressing c/d/i Extremities: No edema, No Calf Tenderness Skin: No rashes Neurological: Neuro grossly intact Psych/Mental Status: Normal Affect, Appropriate Laboratory Results 04/02/20 08:20: POC Glucose 90 04/02/20 09:16: TIBC 419, Ferritin 7 L 04/02/20 09:16: Vitamin B12 442 04/03/20 04:40: WBC 10.6, RBC 2.78 L, Hgb 7.6 L, Hct 23.5 L, MCV 84.5, MCH 27.3, MCHC 32.3, RDW Std Deviation 43.1, RDW Coeff of Nale 13.8, Plt Count 153, MPV 11.4 Current Medications Acetaminophen (Tylenol) 1,000 mg PO Q6 [facility] Last Admin: 04/03/20 06:34 Dose: 1,000 mg Documented by: Bisacodyl (Dulcolax) 10 mg RECTAL UD PRN PRN Reason: If no BM Dextrose (D50w Syringe) 0 gm IV X1 PRN; Protocol PRN Reason: Hypoglycemia Glucagon () 1 mg IM .X1 PRN PRN Reason: Hypoglycemia Hydrocortisone (Hytone) 1 applic TOPICAL TID PRN PRN; Protocol PRN Reason: Discomfort Naloxone HCl 4 mg/ Dextrose 504 mls @ 0 mls/hr IV .Q0M PRN; Protocol PRN Reason: To maintain Resp. rate >10 Methylergonovine Maleate (Methergine) 0.2 mg IM X1 PRN PRN Reason: Uterine Atony Naloxone HCl (Narcan) 0.02 mg IV Q1M PRN PRN Reason: RR <10 and pt unresponsive Naproxen (Naprosyn) 500 mg PO Q8 [facility] Last Admin: 04/03/20 06:18 Dose: 500 mg Documented by: Ondansetron HCl (Zofran) 4 mg IV Q4H PRN PRN PRN Reason: Nausea Oxycodone HCl (Oxyir) 5 - 10 mg PO Q4H PRN PRN PRN Reason: Pain Score 4-10/10 Multivit/Folic Acid/Iron (Prenatabs Fa) 1 tablet PO DAILY@1200 [facility] Last Admin: 04/02/20 14:39 Dose: 1 tablet Documented by: Prochlorperazine Edisylate (Compazine Iv) 10 mg IV Q6H PRN PRN PRN Reason: NAUSEA Senna/Docusate Sodium (Senokot-S, Vera-Colace) 1 - 2 tablet PO DAILY [facility] Last Admin: 04/02/20 10:01 Dose: 2 tablet Documented by: Simethicone (Mylicon) 80 mg PO PCHS PRN PRN Reason: Indigestion/stomach pain Last Admin: 04/02/20 15:11 Dose: 80 mg Documented by: Sodium Chloride () 5 - 15 ml IV UD PRN PRN Reason: SALINE FLUSH Last Admin: 04/03/20 06:19 Dose: 10 ml Documented by: Medical Necessity - Tobacco Use Smoking Status: Never smoker Assessment/Plan All Active Problems (Last Reviewed 03/13/20 @ 11:14 by Chana Donahue) Segmental and somatic dysfunction of pelvic region (Acute) Segmental and somatic dysfunction of sacral region (Acute) Back pain (Acute) BMI 33.0-33.9,adult (Acute) PCOS (polycystic ovarian syndrome) (Acute) Oligomenorrhea (Ruled-out) POD2 s/p section - Patient doing well this morning - Hgb stable at 7.6. VSS. She denies any symptoms of anemia. Discussed iron supplement at home - - Pain controlled without opiate pain medication but patient would like an rx in case she needs it for pain control at home - Dispo: Desires to go home today. Discharge instructions reviewed. To follow-up in 1 week
[2020-04-03 08:22] VITALS: BP 101/58; PULSE 81; RESP 18; TEMP 37.3; O2SAT 97
--- NOTE | 2020-04-03 08:25 | DCINST_ITS ---
Discharge Diet: No Restrictions Discharge Activity: May not drive while taking narcotic pain medications., May Shower May resume sexual activity in: 6 weeks Ice area for (Minutes): 15 Weight Bearing Status: Weight bearing as tolerated Lifting Restrictions: Nothing heavier than baby for 4 weeks Call your doctor if your incision/area has: Sudden Increased Bleeding, Increased Pain/ Swelling, Increased Redness, Foul Smelling Discharge, Swelling at the incision site Call your doctor if you observe: Fever of 101 or Higher, Inability to urinate, Inability to have a bowel movement, Using more than one pad per hour, Shortness of breath, Dizziness, Fainting spells, Swelling in the ankles, Chest pain, Increased palpitations (irregular heartbeat), Calf discomfort, Uncontrolled pain Suture Line Care: Avoid Pulling/Pushing, Avoid Pinching/Bending Remove Dressing in (days):: 2 Cleanse incision/area with: Soap & Water Additional Instructions: If you experience any of the following, contact your healthcare provider. * Bleeding that soaks a pad every hour for 2 hours * Fever 100.4 or higher * Unrelieved incision or abdominal pain * Swelling, redness, discharge or bleeding from your incision or episiotomy site * Your incision begins to separate * Problems urinating (including inability to urinate or burning while urinating). * Visual changes * Severe headache * Flu-like symptoms * Pain or redness in one of both of your breasts * Pain, warmth, tenderness or swelling in your legs, especially the calf area * Frequent nausea and vomiting * Symptoms of depression or anxiety If you experience any of the following, call 911 or go to the nearest Emergency Room. * Chest pain * Problems breathing * Seizure activity * Partial or complete paralysis of a body part, slurred speech, weakness or drooping of the face, or a sudden inability to walk or hold your balance Allergies/Adverse Reactions: Allergies amoxicillin [From Augmentin] Adverse Reaction (Unknown, Verified 04/01/20 06:10) Abd cramps/diarrhea clavulanic acid [From Augmentin] Adverse Reaction (Unknown, Verified 04/01/20 06:10) Abd cramps/diarrhea Medications to take at Discharge chlorpheniramine maleate 4 mg tablet 4 ea PO DAILY 02/13/20 labetalol 100 mg tablet 50 ea PO DAILY 02/13/20 omega-3 fatty acids 1,000 mg capsule 1,000 mg PO DAILY 02/13/20 prenat.vits,sravani,[id number] 1 tab PO DAILY 02/13/20 Omeprazole [Prilosec] 20 mg PO DAILY 04/01/20 Docusate Sodium [Colace] 100 mg PO BID PRN PRN #60 cap 04/03/20 Ferrous Sulfate 325 mg PO QODAY #60 tab 04/03/20 Ibuprofen [Motrin] 800 mg PO TID PRN PRN #30 tab 04/03/20 Oxycodone HCl/Acetaminophen [Percocet 5-325 mg Tablet] 1 each PO Q6H PRN PRN #10 tablet 04/03/20 The following prescriptions were given: Docusate Sodium [Colace] 100 mg PO BID PRN PRN #60 cap PRN Reason: Constipation Transmission Status: Pending to [address] Ferrous Sulfate 325 mg PO QODAY #60 tab Transmission Status: Pending to [address] Ibuprofen [Motrin] 800 mg PO TID PRN PRN #30 tab PRN Reason: Pain Score 4-10/10 Transmission Status: Pending to [address] Oxycodone HCl/Acetaminophen [Percocet 5-325 mg Tablet] 1 each PO Q6H PRN PRN #10 tablet PRN Reason: Pain Score 6-10/10 Transmission Status: Received by [address] Follow-Up: Call to make an appointment with your doctor for an incision check in 1-2 weeks. You will also need a 6 week post- follow up appointment. Test results from this visit will be discussed in further detail at your follow- up appointment, if applicable. Please Follow Up With: Therese Bess MD When: 1 week and 6 weeks Primary Care Physician: Ricardo Jacinto MD [Primary Care Provider] -
[2020-04-03 08:30] VITALS: BP 101/58; PULSE 81; RESP 18; TEMP 37.3; O2SAT 97
[2020-04-03] MEDS: Senna/Docusate Sodium 1 Tablet PO (11:03)
[2020-04-03] MEDS: Prenatal Vits Tablet 1 TABLET PO (11:04)
--- NOTE | 2020-04-03 13:49 | CASEMGMT ---
Social Work Labor and Delivery Unit Consult received and noted this date for maternal history of 20 week loss. Chart reviewed today and this documentation writer familiar with patient from past hospitalization involving history of loss. Spoke with RN at [phone] today to touch base on discharge timeframe. [place] the patient was already discharged home, therefore social work consult not able to be completed. Per RN, no identified concerns with patient interactions or care of baby this date. -REBECCA Fleming, WEIGHT CONTROL ENGINEER
== END 2020-04-03 12:20 | disposition home or self-care (01) | DRG 788 ==
PROVIDERS: Admitting Provider Obstetrics & Gynecology; PCP Family Medicine; Referring Provider Obstetrics & Gynecology; Visit Provider Obstetrics & Gynecology
PROC: 10D00Z1 Extraction of Products of Conception, Low, Open Approach (ICD-10-PCS; CPT 59514; principal; 2020-04-01 07:15)
DX: O24.424 Gestational diabetes mellitus in childbirth, insulin controlled (principal); O99.02 Anemia complicating childbirth; D64.9 Anemia, unspecified; Z3A.38 38 weeks gestation of pregnancy; Z37.0 Single live birth; O99.214 Obesity complicating childbirth; E66.9 Obesity, unspecified
CPT/HCPCS: 82607; 82728; 82962; 83550; 85025; 85027; 85384; 85610; 85730; 86850; 86900; 86901; 86920; 87635; 99218; C9803; J7050; J7120; A4216; G0378; J2405; J2916; U0003

== ENCOUNTER → 2020-05-03 | Outpatient (CLI) | payer OTHER, SELFPAY ==
[2020-04-01 06:06] VITALS: BMI 36.3
[2020-05-03 13:04] LABS: T4 Free Direct 0.85 ng/dL (0.76-1.46); Thyroid Stim Hormone (TSH) 0.77 uIU/mL (0.358-3.74)
== END | disposition home or self-care (01) ==
LOC: MFPLAB 09:30
PROVIDERS: PCP Family Medicine; Referring Provider Family Medicine; Visit Provider Family Medicine
DX: F41.9 Anxiety disorder, unspecified (principal)
CPT/HCPCS: 36415; 84439; 84443; 84481

== ENCOUNTER → 2021-03-31 | Outpatient (CLI) | payer OTHER, SELFPAY | END | disposition home or self-care (01) | PROVIDERS: PCP Family Medicine; Referring Provider Family Medicine; Visit Provider Family Medicine | DX: Z20.822 Contact with and (suspected) exposure to COVID-19 (principal) | CPT/HCPCS: 87635; U0005; U0003 ==

== ENCOUNTER → 2021-04-02 16:56 | Outpatient (CLI) | payer OTHER, SELFPAY ==
--- NOTE | 2021-04-02 17:00 | RAD_ITS ---
STUDY: X-RAY CHEST REASON FOR EXAM: Female, 35 years old. CHEST PAIN COUGH TECHNIQUE: XR Chest 2 Views COMPARISON: None FINDINGS: There is no demonstrated pleural abnormality. Normal size heart. Normal mediastinum and rose mary. Normal visualized pulmonary arteries. Normal visualized aortic arch and descending thoracic aorta. There are diffuse degenerative changes of the visualized thoracic spine. Normal visualized ribs, clavicles, and shoulders. There is no demonstrated abnormality of the visualized soft tissue structures of the upper abdomen. RAD/Chest PA and Lateral IMPRESSION: There are no acute findings. Electronically Signed: Saúl Hutchison MD at 13:20 EDT , Service support ,
== END ==
PROVIDERS: PCP Family Medicine; Referring Provider Family Medicine; Visit Provider Family Medicine
DX: R05 Cough (principal)
CPT/HCPCS: 71046

== ENCOUNTER → 2021-04-17 | Outpatient (CLI) | payer OTHER, SELFPAY | END | disposition home or self-care (01) | LOC: LABSPEC 08:44 | PROVIDERS: PCP Family Medicine; Referring Provider Family Medicine; Visit Provider Family Medicine | DX: J20.9 Acute bronchitis, unspecified (principal); Z20.822 Contact with and (suspected) exposure to COVID-19 | CPT/HCPCS: 87633; 87635; 87798; U0005; U0003 ==

== ENCOUNTER 2022-01-02 14:30 | Outpatient (RCR) | payer OTHER, SELFPAY ==
--- NOTE | 2021-12-11 12:08 | HP.PTEVAL ---
Patient's Visit Information GOMEZ ROWLAND is a 36 year old F referred to Physical Therapy by MARY Barron with a diagnosis of vertigo. Date of Evaluation: 12/11/21 Physical Therapist: DAREN HernandezT, OCS, CSCS - Visit Plan Frequency: 1-2x /Week Duration: 2-4 Weeks Plan: 1-2x/week as needed for 2-4 weeks for positional and balance monitor and vestibular treatment. - Subjective Started getting some vertigo last summer, Had Dallas maneuver which helped. Came back a month ago waking up one morning and could not walk due to spinning and got nauseous. Had 3 bad attacks since then where she had to lie down immediately. Urgent care gave her an antihistamine. Head up and to the left and lying down cause it to happen. Worse with being hot. Gets some vertigo daily lying down to read or looking up. 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 She had it this am lying on bed and spun for 10 seconds. Feels normal otherwise for the most part but may get eye ache or DUDLEY. Has been doing some head maneuvers at home and they don't seem to work. Has one more day tomorrow. Sleeping OK. Activities at [facility] are effected in that bending to pick things up and gardening are queaze inducing. Cautious with picking young dtr up. - Objective Walks and transfers normal, steps reciprocal without rail. Cervical AROM WFL and without pain. UE AROM WNL. - R hallpike jam. + L hallpike jam up torsional nystagmus of 15 seconds. treated with L dallas maneuver. - HD after dallas - Balance/Special Test Scores Functional Gait Assessment Score: 28 % Disability: 6.6700 Dizziness Score: 40 - Goals Goal 1:: 30/30 FGa to diminish fall risk and improve confidence Goal Time Frame: 2-4 Weeks Goal 2:: 100% improved and activity normal Goal Time Frame: 2-4 Weeks Goal 3:: communications superintendent child off floor without hesitation Goal Time Frame: 2-4 Weeks - Rehabilitation Potential Physical Therapy Diagnosis: BPPV Rehabilitation Potential: Good - Anticipated Interventions Patient/Client Instruction: Educate patient on: Condition, Plan of Care For the Purpose of:: To increase tolerance to activity/condition/position Comment: vestibular positional ex maneuvers For the Purpose of:: To increase tolerance to activity/condition/position Thank you for the opportunity to evaluate your patient. For Medicare and Medicare HMO plans, please review the plan of care and approve it. It will need to be FAXED BACK to us at [phone] for Medicare purposes. For Medicare only, by signing this I certify the plan of care. Please let me know if there are questions or concerns regarding this plan of care. Physician Signature: Date:
--- NOTE | 2022-02-20 07:18 | HP.PT.NRP ---
GOMEZ ROWLAND was seen in my office for initial evaluation on 12/11/21. The following Plan of Care was established for this patient: Initial Frequency: 1-2x /Week Initial Duration: 2-4 Weeks Patient/Client Instruction: Educate patient on: Condition, Plan of Care For the Purpose of:: To increase tolerance to activity/condition/position For the Purpose of:: To increase tolerance to activity/condition/position This patient was last seen in our office 01/02/22. Pertinent comments regarding their Physical therapy will appear below: Pt seen 3 visits of POC for vertigo treatment. She was 90% better overall. she cancelled her last visit and did not reschedule. at this point, it has been over 6 weeks and I will discontinue from my care. At this point I will be discontinuing this patient from physical therapy. I would be happy to see this patient again in the future if found appropriate by the physician. Thank you! Ricardo Ritter, DPT, OCS, CSCS Balance/Gait/Functional tests - Balance/Special Test Scores Functional Gait Assessment Score: 28 % Disability: 6.6700 Dizziness Score: 40
== END 2022-01-02 19:00 | disposition home or self-care (01) ==
LOC: PT 14:30
PROVIDERS: PCP Family Medicine; Referring Provider Physician Assistant; Visit Provider Physician Assistant
DX: R42 Dizziness and giddiness (principal)
CPT/HCPCS: 97161; 97530

== ENCOUNTER → 2022-06-10 | Outpatient (CLI) | payer OTHER, SELFPAY ==
[2022-06-10 12:36] LABS: Anion Gap 5 (5-15); BUN 11 mg/dL (7-18); BUN/Creat Ratio 11.6 RATIO (10-20); Calcium,Total 8.8 mg/dL (8.5-10.1); Chloride 107 mmol/L (98-107); Cholesterol 203 mg/dL (200); Creatinine, Serum 0.94 mg/dL (0.55-1.02); EST Glomerular Filtration Rate 71 mL/min (>60); Est Glom Filt Rate - Afr Amer 86 mL/min (>60); Glucose 111 mg/dL (74-106); High Density Lipoprotein 42 mg/dL; Potassium 4.2 mmol/L (3.5-5.1); Sodium Level 140 mmol/L (136-145); Triglycerides 147 mg/dL; Very Low Density Lipoprotein 29 mg/dL (5-40)
== END | disposition home or self-care (01) ==
LOC: LAB 12:00
PROVIDERS: PCP Family Medicine; Referring Provider Nurse Practitioner Family; Visit Provider Nurse Practitioner Family
DX: Z13.1 Encounter for screening for diabetes mellitus (principal); Z13.220 Encounter for screening for lipoid disorders
CPT/HCPCS: 36415; 80048; 80061

== ENCOUNTER → 2022-09-17 | Outpatient (CLI) | payer OTHER, SELFPAY ==
[2022-09-17 17:48] LABS: Hematocrit 38.3 % (37-47); Hemoglobin 11.9 g/dL (12.0-15.0); Mean Corp Hgb Conc 31.1 g/dL (32-36); Mean Corpuscular Hgb 27.2 pg (27.0-32.0); Mean Corpuscular Volume 87.4 fL (81-99); Mean Platelet Vol. 10.5 fl (6.2-12.0); Platelet Count 362 K/mm3 (150-450); RBC Distribution Width CV 15.1 % (11.6-14.6); RBC Distribution Width SD 48.6 fl (35.1-43.9); Red Blood Count 4.38 M/mm3 (4.2-5.4); White Blood Count 7.4 K/mm3 (4.4-11.0)
[2022-09-17 18:11] LABS: Hemoglobin A1c 5.3 % (3.8-5.6)
[2022-09-17 18:28] LABS: AST(SGOT) 24 U/L (15-37); Alanine Aminotransfer ALT/SGPT 35 U/L (13-56); Albumin, Serum 3.9 g/dL (3.2-5.0); Alkaline Phosphatase 70 U/L (45-117); Anion Gap 5 (5-15); BUN 14 mg/dL (7-18); BUN/Creat Ratio 15.4 RATIO (10-20); Chloride 105 mmol/L (98-107); Creatinine, Serum 0.91 mg/dL (0.55-1.02); EST Glomerular Filtration Rate 74 mL/min (>60); Est Glom Filt Rate - Afr Amer 90 mL/min (>60); Free T3 2.6 pg/mL (2.18-3.98); Globulin 3.9 g/dL (2.2-4.2); Glucose 98 mg/dL (74-106); Protein, Total 7.8 g/dL (6.4-8.2); Sodium Level 140 mmol/L (136-145); T4 Free Direct 0.74 ng/dL (0.76-1.46); Thyroid Stim Hormone (TSH) 1.12 uIU/mL (0.358-3.74)
== END | disposition home or self-care (01) ==
LOC: MFPLAB 16:52
PROVIDERS: PCP Family Medicine; Referring Provider Family Medicine; Visit Provider Family Medicine
DX: G47.33 Obstructive sleep apnea (adult) (pediatric) (principal); E88.81 Metabolic syndrome and other insulin resistance; R94.6 Abnormal results of thyroid function studies
CPT/HCPCS: 36415; 80053; 83036; 84439; 84443; 84481; 85027

== ENCOUNTER → 2022-11-26 | Outpatient (CLI) | payer OTHER, SELFPAY ==
[2022-11-26 18:11] LABS: Absolute Lymphocyte Count 2.71 X10^3/uL (0.83-4.51); Absolute Neutrophil Count 4.9 X10^3/uL (2.0-7.7); Basophil# 0.06 X10^3/uL; Basophil% 0.7 % (0-1); Eosinophil# 0.19 X10^3/uL; Eosinophils% 2.3 % (0-5); Hematocrit 41.2 % (37-47); Lymphocyte # 2.71 X10^3/ul (0.83-4.51); Lymphocyte % 32.1 % (19-41); Mean Corp Hgb Conc 31.6 g/dL (32-36); Mean Corpuscular Volume 85.5 fL (81-99); Monocyte# 0.55 X10^3/uL; Monocyte% 6.5 % (0-10); NRBC Flagged by Analyzer 0 % (0-5); Neutrophil # 4.91 X10^3/uL (2.7-7.7); Neutrophil % 58.2 % (47-70); Platelet Count 286 K/mm3 (150-450); RBC Distribution Width CV 15.7 % (11.6-14.6); RBC Distribution Width SD 48.8 fl (35.1-43.9); RET-HE 30.2 pg (30-35); Red Blood Count 4.82 M/mm3 (4.2-5.4); Reticulocyte Count 1.51 % (0.5-1.5); White Blood Count 8.4 K/mm3 (4.4-11.0)
[2022-11-26 19:26] LABS: ALB/GLOB Ratio 1.2 RATIO (0.9-2.4); AST(SGOT) 28 U/L (15-37); Alanine Aminotransfer ALT/SGPT 38 U/L (13-56); Albumin, Serum 3.4 g/dL (3.2-5.0); Alkaline Phosphatase 56 U/L (45-117); Anion Gap 4 (5-15); BUN 12 mg/dL (7-18); BUN/Creat Ratio 15.3 RATIO (10-20); Calcium,Total 8.5 mg/dL (8.5-10.1); Chloride 107 mmol/L (98-107); Creatinine, Serum 0.78 mg/dL (0.55-1.02); EST Glomerular Filtration Rate 88 mL/min (>60); Est Glom Filt Rate - Afr Amer 106 mL/min (>60); Ferritin 10 ng/mL (8-252); Free T3 2.2 pg/mL (2.18-3.98); Globulin 2.9 g/dL (2.2-4.2); Glucose 100 mg/dL (74-106); Iron 24 ug/dL (50-170); Iron Binding Capacity,Total 369 ug/dL (250-450); Potassium 3.9 mmol/L (3.5-5.1); Protein, Total 6.3 g/dL (6.4-8.2); Sodium Level 139 mmol/L (136-145); T4 Free Direct 0.73 ng/dL (0.76-1.46); Thyroid Stim Hormone (TSH) 1.39 uIU/mL (0.358-3.74)
[2022-11-26 19:37] LABS: Vitamin B12 497 pg/mL (211-911)
== END | disposition home or self-care (01) ==
LOC: MFPLAB 16:47
PROVIDERS: PCP Family Medicine; Visit Provider Family Medicine
DX: E61.1 Iron deficiency (principal); R79.89 Other specified abnormal findings of blood chemistry; E88.81 Metabolic syndrome and other insulin resistance
CPT/HCPCS: 36415; 80053; 82607; 82728; 83540; 83550; 84439; 84443; 84481; 85025; 85045

== ENCOUNTER → 2023-06-07 | Outpatient (CLI) | payer OTHER, SELFPAY ==
[2023-06-07 18:23] LABS: Absolute Lymphocyte Count 2.13 X10^3/uL (0.83-4.51); Absolute Neutrophil Count 4.8 X10^3/uL (2.0-7.7); Basophil# 0.06 X10^3/uL; Basophil% 0.8 % (0-1); Eosinophil# 0.17 X10^3/uL; Eosinophils% 2.2 % (0-5); Hemoglobin 13.6 g/dL (12.0-15.0); Lymphocyte # 2.13 X10^3/ul (0.83-4.51); Lymphocyte % 27.4 % (19-41); Mean Corp Hgb Conc 33.2 g/dL (32-36); Mean Corpuscular Volume 90.5 fL (81-99); Mean Platelet Vol. 10.8 fl (6.2-12.0); Monocyte# 0.56 X10^3/uL; Monocyte% 7.2 % (0-10); NRBC Flagged by Analyzer 0 % (0-5); Neutrophil # 4.84 X10^3/uL (2.7-7.7); Neutrophil % 62.3 % (47-70); Platelet Count 291 K/mm3 (150-450); RBC Distribution Width CV 13.4 % (11.6-14.6); RBC Distribution Width SD 44.8 fl (35.1-43.9); Red Blood Count 4.53 M/mm3 (4.2-5.4); White Blood Count 7.8 K/mm3 (4.4-11.0)
[2023-06-07 18:42] LABS: Ferritin 21 ng/mL (8-252); Iron 81 ug/dL (50-170); Lipase 27 U/L (13-75); T4 Free Direct 0.69 ng/dL (0.76-1.46); Thyroid Stim Hormone (TSH) 1.41 uIU/mL (0.358-3.74)
[2023-06-09 14:09] LABS: Deamidated Gliadin IgA 11 units (0-19); Deamidated Gliadin IgG 5 units (0-19); Endomysial Antibody IgA Negative (Negative); Immunoglobulin A 219 mg/dL (87-352); t-Transglutaminase IgA <2 U/mL (0-3)
== END | disposition home or self-care (01) ==
LOC: MTLAB 17:04
PROVIDERS: PCP Family Medicine; Referring Provider Family Medicine; Visit Provider Family Medicine
DX: D50.9 Iron deficiency anemia, unspecified (principal); R79.89 Other specified abnormal findings of blood chemistry; K27.9 Peptic ulcer, site unspecified, unspecified as acute or chronic, without hemorrhage or perforation
CPT/HCPCS: 36415; 82728; 82784; 83516; 83540; 83690; 84439; 84443; 85025; 86255

== ENCOUNTER → 2023-08-23 | Outpatient (CLI) | payer MEDICAID, SELFPAY ==
[2023-08-23 17:45] LABS: Absolute Lymphocyte Count 2.16 X10^3/uL (0.83-4.51); Absolute Neutrophil Count 5.3 X10^3/uL (2.0-7.7); Basophil# 0.06 X10^3/uL; Basophil% 0.7 % (0-1); Eosinophil# 0.22 X10^3/uL; Eosinophils% 2.6 % (0-5); Hemoglobin 14.3 g/dL (12.0-15.0); Lymphocyte # 2.16 X10^3/ul (0.83-4.51); Mean Corp Hgb Conc 33.3 g/dL (32-36); Mean Corpuscular Hgb 29.7 pg (27.0-32.0); Mean Corpuscular Volume 89.2 fL (81-99); Monocyte# 0.57 X10^3/uL; Monocyte% 6.9 % (0-10); NRBC Flagged by Analyzer 0 % (0-5); Neutrophil # 5.29 X10^3/uL (2.7-7.7); Neutrophil % 63.6 % (47-70); Platelet Count 294 K/mm3 (150-450); RBC Distribution Width CV 13.2 % (11.6-14.6); RBC Distribution Width SD 42.7 fl (35.1-43.9); Red Blood Count 4.82 M/mm3 (4.2-5.4); White Blood Count 8.3 K/mm3 (4.4-11.0)
[2023-08-23 18:12] LABS: Hemoglobin A1c 5.6 % (3.8-5.6)
[2023-08-23 18:25] LABS: ALB/GLOB Ratio 0.9 RATIO (0.9-2.4); AST(SGOT) 22 U/L (15-37); Alanine Aminotransfer ALT/SGPT 35 U/L (13-56); Albumin, Serum 3.8 g/dL (3.2-5.0); Alkaline Phosphatase 58 U/L (45-117); Anion Gap 4 (5-15); BUN 17 mg/dL (7-18); BUN/Creat Ratio 20.6 RATIO (10-20); Calcium,Total 9.1 mg/dL (8.5-10.1); Chloride 105 mmol/L (98-107); Creatinine, Serum 0.82 mg/dL (0.55-1.02); EST Glomerular Filtration Rate 83 mL/min (>60); Est Glom Filt Rate - Afr Amer 100 mL/min (>60); Globulin 4.1 g/dL (2.2-4.2); Glucose 98 mg/dL (74-106); Potassium 3.8 mmol/L (3.5-5.1); Protein, Total 7.9 g/dL (6.4-8.2); Sodium Level 134 mmol/L (136-145); Thyroid Stim Hormone (TSH) 1.39 uIU/mL (0.358-3.74)
== END | disposition home or self-care (01) ==
LOC: MFPLAB 16:55
PROVIDERS: PCP Family Medicine; Visit Provider Family Medicine
DX: F33.1 Major depressive disorder, recurrent, moderate (principal); E66.9 Obesity, unspecified; Z68.39 Body mass index [BMI] 39.0-39.9, adult; K27.9 Peptic ulcer, site unspecified, unspecified as acute or chronic, without hemorrhage or perforation; R79.89 Other specified abnormal findings of blood chemistry; D50.9 Iron deficiency anemia, unspecified
CPT/HCPCS: 36415; 80053; 83036; 84443; 85025; 87338

== ENCOUNTER → 2023-08-23 | Outpatient (CLI) | payer MEDICAID, SELFPAY ==
--- OUTSIDE RECORDS SUMMARY | 2023-08-23 17:09 | XMS RPT_ITS | CCD ---
Author Name Unknown Address [address] [place] [address] Organization [facility] Care Team Providers Care Dental Service Technician Name Role Phone Orville SAUCEDO, Mo Leyva Primary Care Provider Jeff Tan MD Primary Care Provider Orville SAUCEDO, Mo Leyva Primary Care Provider LEE ANN ZULETA Attending Unavailable TALAMPAS, JEFF D Primary Care Unavailable TALAMPAS, JEFF D Primary Care Unavailable KIMBERLY STEVE Attending Unavailable TALAMPAS, JEFF D Primary Care Unavailable YUDI STEEN Attending Unavailable TALAMPAS, JEFF D Primary Care Unavailable TALAMPAS, JEFF D Primary Care Unavailable TALAMPAS, JEFF D Primary Care Unavailable TALAMPAS, JEFF D Primary Care Unavailable LOUISA ELLER Attending Unavailable TALAMPAS, JEFF D Primary Care Unavailable JACINTO, MO KATY Primary Care Unavailable LIZZETTE WOODS Referring Unavailable ORVILLE, MO KATY Primary Care Unavailable ZA JAVED Attending Unavailable ORVILLE MO KATY Primary Care Unavailable FIORELLA DHILLON Attending Unavailable ORVILLE, MO KATY Primary Care Unavailable Allergies Allergy Classification Reported Allergen(s) Allergy Type Date of Onset Reaction(s) Facility (9 sources) Amoxicillin / Clavulanate; Translations: [AMOXICILLIN-POT CLAVULANATE] Drug Allergy 05-01-2005 Diarrhea, Vomiting [facility] Work Phone: Medications Current Medications Medication Drug Class(es) Dates Sig (Normalized) Sig (Original) cephalexin 500 mg oral capsule (1 source) Cephalosporin Antibacterial Start: 11-24-2021 End: 12-01-2021 take 1 capsule by mouth twice daily cephALEXin (KEFLEX) 500 mg capsule Indications: Urinary frequency Take 1 capsule by mouth twice daily for 7 days. 14 capsule 0 11/24/2021 12/01/2021 Active Completed/Discontinued Medications Medication Drug Class(es) Dates Sig (Normalized) Sig (Original) [id number] 200 actuat albuterol 0.09 mg/actuat metered dose inhaler (8 sources) beta2-Adrenergic Agonist Start: 01-22-2015 take 2 puff(s) by inhalation every six hours as needed for wheezing albuterol HFA (PROVENTIL HFA, VENTOLIN HFA) 90 mcg/actuation inhaler Indications: URI (upper respiratory infection) Inhale 2 Puffs as instructed every 6 hours as needed for Wheezing/Shortness of Breath. 1 Inhaler 2 01/22/2015 Active Problems Active Problems Problem Classification Problem Date Documented Date Episodic/Chronic Administrative/social admission (2 sources) Administrative reason for encounter; Translations: [Persons encountering health services in other specified circumstances] Episodic Anxiety disorders (6 sources) Anxiety; Translations: [Anxiety disorder, unspecified] Onset: 11-03-2021 Chronic Calculus of urinary tract (1 source) Renal pain; Translations: [Unspecified renal colic] Episodic Conditions associated with dizziness or vertigo (1 source) Vertigo; Translations: [Dizziness and giddiness] Episodic Esophageal disorders (1 source) Gastro-esophageal reflux disease with esophagitis; Translations: [Gastroesophageal reflux disease with esophagitis, unspecified whether hemorrhage] Chronic Esophageal disorders (1 source) Esophageal disorders; Translations: [Gastroesophageal reflux disease with esophagitis, unspecified whether hemorrhage] Onset: 12-31-2021 Genitourinary symptoms and ill-defined conditions (2 sources) Increased frequency of urination; Translations: [Frequency of micturition] Episodic Inflammation; infection of eye (except that caused by tuberculosis or sexually transmitteddisease) (1 source) Acute atopic conjunctivitis of left eye; Translations: [Acute atopic conjunctivitis, left eye] Episodic Mood disorders (1 source) Mood disorders; Translations: [Anxiety and depression] Onset: 12-31-2021 Other endocrine disorders (8 sources) Polycystic ovary syndrome; Translations: [Polycystic ovarian syndrome] Onset: 03-09-2019 03-09-2019 Chronic Other nutritional; endocrine; and metabolic disorders (1 source) Body mass index 30+ - obesity; Translations: [Body mass index (BMI) 39.0-39.9, adult] Chronic Other nutritional; endocrine; and metabolic disorders (1 source) Body mass index (BMI) 39.0-39.9, adult; Translations: [BMI 39.0-39.9,adult] Onset: 12-31-2021 Chronic Other nutritional; endocrine; and metabolic disorders (1 source) Weight gain; Translations: [Abnormal weight gain] Episodic Urinary tract infections (1 source) Acute lower urinary tract infection; Translations: [Urinary tract infection, site not specified] Episodic Past or Other Problems Problem Classification Problem Date Documented Date Episodic/Chronic Diabetes mellitus without complication (4 sources) Increased glucose level; Translations: [Other abnormal glucose] Onset: 11-03-2021 Episodic Diabetes or abnormal glucose tolerance complicating ; childbirth; or the puerperium (8 sources) Abnormal glucose level; Translations: [Abnormal glucose complicating ] Onset: 08-31-2019 08-31-2019 Episodic Immunizations and screening for infectious disease (2 sources) Viral screening status; Translations: [Encounter for screening for other viral diseases] Onset: 11-03-2021 Episodic Other complications of (8 sources) Previous operation to cervix affecting ; Translations: [Maternal care for other abnormalities of cervix, unspecified trimester] Onset: 03-06-2019 08-24-2019 Episodic Other nutritional; endocrine; and metabolic disorders (1 source) Abnormal weight gain; Translations: [Weight gain] Onset: 11-03-2021 Episodic Other screening for suspected conditions (not mental disorders or infectious disease) (10 sources) Atypical glandular cells on cervical Papanicolaou smear; Translations: [Unspecified abnormal cytological findings in specimens from cervix uteri] Onset: 02-27-2016 02-27-2016 Episodic Other skin disorders (1 source) Hypertrichosis, unspecified; Translations: [Excessive hair growth] Onset: 10-07-2021 Episodic Previous (8 sources) Uterine scar from previous surgery in , childbirth and the puerperium; Translations: [Maternal care for low transverse scar from previous delivery] Onset: 08-31-2019 08-31-2019 Episodic Residual codes; unclassified (8 sources) FH: Congenital heart disease; Translations: [Family history of other congenital malformations, deformations and chromosomal abnormalities] Onset: 03-06-2019 03-06-2019 Episodic Residual codes; unclassified (8 sources) History of intrauterine ; Translations: [Personal history of other complications of , childbirth and the puerperium] Onset: 08-24-2019 08-24-2019 Episodic Residual codes; unclassified (2 sources) Procedure and treatment not carried out because of patient's decision for unspecified reasons; Translations: [Surgical or other procedure not carried out because of patient's decision] Onset: 11-03-2021 Episodic Residual codes; unclassified (2 sources) Contact with and (suspected) exposure to mold (toxic); Translations: [Contact with and (suspected) exposure to mold] Onset: 12-31-2021 Episodic Screening and history of mental health and substance abuse codes (10 sources) H/O: depression; Translations: [Personal history of other mental and behavioral disorders] Onset: 03-06-2019 08-24-2019 Episodic Results Test Name Value Interpretation Reference Range Facil ity Vital Signs Date Time Vital Sign Value Performing Clinician Jules prater 06-01-2022 14:53-0500 Body temperature 97.81 [degF] Rachel Seay APRN.CNP Work Phone: [facility] 06-01-2022 14:53-0500 Body weight 103.69 kg Rachel Seay APRN.IRIS Work Phone: [facility] 06-01-2022 14:53-0500 Diastolic blood pressure 84 mm[Hg] Rachel Seay APRN.IRIS Work Phone: [facility] 06-01-2022 14:53-0500 Heart rate 86 /min Rachel Seay APRN.CNP Work Phone: [facility] 06-01-2022 14:53-0500 Respiratory rate 18 /min Rachel Seay APRN.CNP Work Phone: [facility] 06-01-2022 14:53-0500 SaO2% (BldA) [Mass fraction] 98 % Rachel Seay APRN.CNP Work Phone: [facility] 06-01-2022 14:53-0500 Systolic blood pressure 120 mm[Hg] Rachel Seay APRN.CNP Work Phone: [facility] 12-31-2021 11:02-0400 Body height 162.6 cm Kimberly Steve MD Work Phone: [facility] 12-31-2021 11:02-0400 Body weight 104.33 kg Kimberly Steve MD Work Phone: [facility] 12-31-2021 11:02-0400 Diastolic blood pressure 86 mm[Hg] Kimberly Steve MD Work Phone: [facility] 12-31-2021 11:02-0400 Heart rate 85 /min Kimberly Steve MD Work Phone: [facility] 12-31-2021 11:02-0400 Systolic blood pressure 123 mm[Hg] Kimberly Steve MD Work Phone: [facility] 11-24-2021 12:50-0400 Body temperature 98.4 [degF] Deepti Athy PA-C Work Phone: [facility] 11-24-2021 12:50-0400 Body weight 103.87 kg Deepti Athy PA-C Work Phone: [facility] 11-24-2021 12:50-0400 Diastolic blood pressure 78 mm[Hg] Deepti Athy PA-C Work Phone: [facility] 11-24-2021 12:50-0400 Heart rate 94 /min Depeti Athy PA-C Work Phone: [facility] 11-24-2021 12:50-0400 Respiratory rate 18 /min Deepti Athy PA-C Work Phone: [facility] 11-24-2021 12:50-0400 SaO2% (BldA) [Mass fraction] 97 % Deepti Athy PA-C Work Phone: [facility] 11-24-2021 12:50-0400 Systolic blood pressure 128 mm[Hg] Deepti Athy PA-C Work Phone: [facility] 11-03-2021 13:01-0400 Body height 162.6 cm [facility] REWRITE EDITOR.RUBBER COMPOUNDER FORMULATOR Work Phone: [facility] 11-03-2021 13:01-0400 Body weight 102.97 kg Lee Ann Zuleta REWRITE EDITOR.RUBBER COMPOUNDER FORMULATOR Work Phone: [facility] 11-03-2021 13:01-0400 Diastolic blood pressure 68 mm[Hg] Lee Ann Hoppers REWRITE EDITOR.RUBBER COMPOUNDER FORMULATOR Work Phone: [facility] 11-03-2021 13:01-0400 Heart rate 87 /min Lee Ann Hoppers REWRITE EDITOR.RUBBER COMPOUNDER FORMULATOR Work Phone: [facility] 11-03-2021 13:01-0400 SaO2% (BldA) [Mass fraction] 97 % Lee Ann Hoppers REWRITE EDITOR.RUBBER COMPOUNDER FORMULATOR Work Phone: [facility] 11-03-2021 13:01-0400 Systolic blood pressure 102 mm[Hg] Lee Ann Hoppers REWRITE EDITOR.RUBBER COMPOUNDER FORMULATOR Work Phone: [facility] Encounters Encounter Date Encounter Type Care Provider Facility Start: 06-01-2022 End: 06-01-2022 ambulatory [facility] Facility:[facility] Start: 06-01-2022 End: 06-01-2022 Patient encounter procedure Rachel Seay APRN.CNP Work Phone: [facility] Procedures Date Procedure Procedure Detail Performing Clinician Start: 06-01-2022 Urnls dip stick/tabl et rgnt auto w/o microscopy Rachel Seay APRN.STAIN SPRAYER Work Phone: Start: 11-24-2021 Urnls dip stick/tabl et rgnt auto w/o microscopy Deepti Saha PA-C Work Phone: Plan of Treatment Date Care Activity Detail Author Start: 01-15-2030 Urine microalbumin profile DTAP,TDAP,TD (7 - Td or Tdap) [facility] Start: 03-09-2024 HPV TESTING HPV TESTING [facility] Start: 03-09-2024 PAP TESTING PAP TESTING [facility] Start: 05-05-2022 End: 07-05-2022 Hemoglobin A1c/Hemoglobin.total in Blood HGB A1C Lab Routine Elevated glucose Expected: 05/05/2022 (Approximate), Expires: 07/05/2022 [facility] Work Phone: Immunizations Immunization Date Immunization Notes Care Provider Nicole mac 07-18-2021 COVID-19 vaccine, fu ll dose (MODERNA) Lee Ann Zuleta REWRITE EDITOR.RUBBER COMPOUNDER FORMULATOR Work Phone: [facility] Work Phone: 09-28-2020 COVID-19 vaccine, fu ll dose (MODERNA) Lee Ann Zuleta REWRITE EDITOR.RUBBER COMPOUNDER FORMULATOR Work Phone: [facility] Work Phone: 08-31-2020 COVID-19 vaccine, fu ll dose (MODERNA) Lee Ann Zuleta REWRITE EDITOR.RUBBER COMPOUNDER FORMULATOR Work Phone: [facility] Work Phone: 04-05-2020 influenza, injectabl e, quadrivalent, contains preservative Lee Ann Zuleta REWRITE EDITOR.RUBBER COMPOUNDER FORMULATOR Work Phone: [facility] Work Phone: 01-16-2020 tetanus toxoid, redu navarro diphtheria toxoid, and acellular pertussis vaccine, adsorbed Shaneeka Rice REWRITE EDITOR.STAIN SPRAYER Work Phone: [facility] 04-05-2019 influenza, injectabl e, quadrivalent, contains preservative Shaneeka Rice REWRITE EDITOR.STAIN SPRAYER Work Phone: [facility] Work Phone: 12-23-2004 Meningococcal, MCV4, unspecified conjugate formulation(groups A, C, Y and W-135) Shaneeka Rice REWRITE EDITOR.STAIN SPRAYER Work Phone: [facility] Work Phone: 02-16-2001 hepatitis B vaccine, pediatric or pediatric/adolescent dosage Shaneeka Rice REWRITE EDITOR.STAIN SPRAYER Work Phone: [facility] Work Phone: 03-05-2000 hepatitis B vaccine, pediatric or pediatric/adolescent dosage Shaneeka Rice REWRITE EDITOR.STAIN SPRAYER Work Phone: [facility] Work Phone: 03-05-2000 tetanus and diphther ia toxoids, adsorbed, preservative free, for adult use (2 Lf of tetanus toxoid and 2 Lf of diphtheria toxoid) Shaneeka Rice REWRITE EDITOR.[facility] Work Phone: [facility] Work Phone: 03-05-2000 trivalent poliovirus vaccine, live, oral Shaneeka Rice REWRITE EDITOR.[facility] Work Phone: [facility] Work Phone: 03-03-1999 hepatitis B vaccine, pediatric or pediatric/adolescent dosage Shaneeka Rice REWRITE EDITOR.[facility] Work Phone: [facility] Work Phone: 03-03-1999 measles, mumps and rubella virus vaccine Shaneeka Rice REWRITE EDITOR.[facility] Work Phone: [facility] Work Phone: 03-15-1989 diphtheria, tetanus toxoids and pertussis vaccine Shaneeka Rice REWRITE EDITOR.[facility] Work Phone: [facility] Work Phone: 09-16-1987 measles, mumps and rubella virus vaccine Shaneeka Rice REWRITE EDITOR.[facility] Work Phone: [facility] Work Phone: 1986 diphtheria, tetanus toxoids and pertussis vaccine Shaneeka Rice REWRITE EDITOR.[facility] Work Phone: [facility] Work Phone: 1986 trivalent poliovirus vaccine, live, oral Shaneeka Rice REWRITE EDITOR.[facility] Work Phone: [facility] Work Phone: 1986 diphtheria, tetanus toxoids and pertussis vaccine Shaneeka Rice REWRITE EDITOR.[facility] Work Phone: [facility] Work Phone: 1986 diphtheria, tetanus toxoids and pertussis vaccine Shaneeka Rice REWRITE EDITOR.STAIN SPRAYER Work Phone: [facility] Work Phone: 1986 trivalent poliovirus vaccine, live, oral Fiorella Rice REWRITE EDITOR.STAIN SPRAYER Work Phone: [facility] Work Phone: Payers Date Payer Category Payer Unknown MMO MMO [employer] [id number] 2018-Present [phone] [address] [place] [id number] PPO [id number] 2018 Unknown MMO MMO [employer] [id number] 2018-Present [phone] [address] [place] [address] PPO [id number] 2018 Unknown [id number] Social History Date Type Detail Facility Start: 08-31-2011 End: 06-01-2022 Tobacco smoking status NHIS Never smoked tobacco [facility] Start: 08-31-2011 End: 06-01-2022 Tobacco use and exposure Smokeless tobacco non-user [facility] Start: 10-22-2021 End: 06-01-2022 Alcohol intake Ex-drinker (finding) [facility] Start: 05-13-2020 History SDOH Financial 5 [facility] Start: 05-13-2020 History SDOH Food Worry 1 [facility] Start: 05-13-2020 History SDOH Transpo rt Med 2 [facility] Start: 08-24-2019 Education 18 [facility] Start: 1985 Sex Assigned At Not on file [facility] Start: 10-24-2021 End: 06-01-2022 Exposure to SARS-CoV-2 (event) Not sure [facility] Work Phone: Start: 1985 Sex Assigned At Female [facility] Medical Equipment Procedure Code Equipment Code Equipment Origin al Text Equipment Identifier Dates use one insulin pen needle daily for insulin injection, brand appropriate to match insulin pen Start: 03-13-2020 End: 11-03-2021 Clinical Notes 08-24-2019 to 06-01-2022 Patient InstructionsRachel Seay APRN.STAIN SPRAYER - 06/01/2022 3:00 PM Rodger Eller PA-C - 06/01/2022 2:14 PM [facility] ED - 01/05/2022 10:30 AM EDTPatient Instructions Note Date & Type Note Facility 06-01-2022 Note HNO ID: [id number] Author: Rachel Seay APRN.STAIN SPRAYER Service: ? Author Type: Nurse Practitioner Type: Progress Notes Filed: 06/01/2022 3:50 PM Note Text: Subjective The history is provided by the patient. No english language learner tutor was used. HPI Gomez Celis is a 37 year old female who presents today for CC of burning and frequency for 2 days. Positive for Dysuria, Increase in frequency of urination, and Back/Flank pain, Negative for Urgency, Sense of incomplete void, Fevers, Vomiting, Diarrhea, Abdominal pain , Blood in urine, and Vaginal itch or discharge Chance of : No Last intercourse: yes past week Any self-treatment attempted: Yes Number of previous UTI's in last 6 months:0 Number of previous UTI's in last 12 months: 0 Aggravating Factors: voiding Alleviating Factors include AZO with minimal relief in symptoms. BP 120/84 Pulse 86 Temp 36.6 ?C (97.8 ?F) Resp 18 Wt 103.7 kg (228 lb 9.6 oz) LMP 04/27/2022 (Within Weeks) SpO2 98% BMI 39.24 kg/m? Social History Tobacco Use Smoking status: Never Smokeless tobacco: Never Vaping Use Vaping Use: Never used Substance Use Topics Alcohol use: Not Currently Comment: ocaasionally Drug use: No Comment: last marijuana use in 2008 PAST MEDICAL HISTORY Diagnosis Date Anemia Atypical glandular cells of undetermined significance (EVAN) on cervical Pap smear 02/27/2016 Bilateral ovarian cysts follicular; TVUS 10/2011 Depressive disorder, not elsewhere classified Infertility, female PCOS (polycystic ovarian syndrome) [facility] 06/16/05 HGSIL-LEEP Vaginal candidiasis Varicella without mention of complication @ 4yrs of age I have confirmed and edited as necessary, the [facility] Review of Systems Constitutional: Negative for chills and fever. Gastrointestinal: Negative for abdominal pain, nausea and vomiting. Genitourinary: Positive for dysuria, flank pain, frequency and urgency. Negative for hematuria. Objective Physical Exam Vitals and nursing note reviewed. Constitutional: Appearance: Normal appearance. Pulmonary: Effort: Pulmonary effort is normal. Abdominal: General: Bowel sounds are normal. There is no abdominal bruit. Palpations: Abdomen is not rigid. There is no mass or pulsatile mass. Tenderness: There is no abdominal tenderness. There is no guarding or rebound. Negative signs include Beach's sign and McBurney's sign. Skin: General: Skin is warm and dry. Neurological: Mental Status: She is alert and oriented to person, place, and time. Psychiatric: Mood and Affect: Affect normal. ASSESSMENT/PLAN: 1. Urinary frequency - ICD9: 788.41, ICD10: R35.0 (primary diagnosis) acute - UA positive for lizzie esterase and nitrates - Send urine for culture - Begin treatment with Macrobid 100 mg BID for 5 days - Patient education for prevention given - UA DIP, URINE (POC) - URINE CULTURE 2. Acute lower UTI - ICD9: 599.0, ICD10: N39.0 Macrobid Tylenol/ibuprofen as needed for discomfort AZO otc Increase hydration -Follow up with PCP or return to clinic if symptoms not improving in 3 days or if you develop any new (or worsening) symptoms such as fever, chills or back pain go to ER. Diagnosis and treatment plan were discussed and questions were answered to the patient's satisfaction. Pt acknowledged understanding of concepts and follow up plan. Specific signs and symptoms that would indicate the need for higher level of care were discussed in detail warranting prompt ER evaluation. Rachel Seay APRN.[facility] 06-01-2022 Note HNO ID: [id number] Author: Louisa Eller PA-C Service: ? Author Type: Physician Core Man Type: Progress Notes Filed: 06/01/2022 2:56 PM Note Text: Telemedicine Visit - Distance Health Virtual Visit Note Patient seen on [employer] platform. Location of patient: [place] History of Present Illness Gomez Celis is a 37 year old old female with a history of UTI symptoms for 2 days. Urinary symptoms ROS: Positive for Dysuria, Increase in frequency of urination, Urgency, and Back/Flank pain, Negative for Fevers PAST MEDICAL HISTORY Diagnosis Date Anemia Atypical glandular cells of undetermined significance (EVAN) on cervical Pap smear 02/27/2016 Bilateral ovarian cysts follicular; TVUS 10/2011 Depressive disorder, not elsewhere classified Infertility, female PCOS (polycystic ovarian syndrome) [facility] 06/16/05 HGSIL-LEEP Vaginal candidiasis Varicella without mention of complication @ 4yrs of age PAST SURGICAL HISTORY Procedure Laterality Date DELIVERY ONLY 12/2009 , low transverse IUD REMOVAL ([employer] DEPT)_*FL 02/22/2016 At [facility] OFFICE [facility]EE 2004 PAST SURGICAL HISTORY OF 3RD GRADE NEEDLE REMOVED FROM FOOT PAST SURGICAL HISTORY OF WISDOM TEETH EXTRACTED FAMILY HISTORY Problem Relation Age of Onset Depression Father Depression Mother Thyroid Mother No Known Problems Sister No Known Problems Brother Diabetes Maternal Grandmother Dementia Maternal Grandfather Breast Cancer Paternal Grandmother Aneurysm Paternal Grandmother Colon Cancer Paternal Grandfather Heart Attack Paternal Grandfather No Known Problems Daughter other (IUFD 20 weeks) Son Social History Tobacco Use Smoking status: Never Smokeless tobacco: Never Vaping Use Vaping Use: Never used Substance Use Topics Alcohol use: Not Currently Comment: ocaasionally Drug use: No Comment: last marijuana use in 2008 ALLERGIES Allergen Reactions Augmentin [Amoxicil* Diarrhea, Vomiting Current Outpatient Medications Medication Sig f-qqgolkvlw-qcquwfjy root extract-aloe leaf extract (GLUTAGENICS) [id number] powder Mix one teaspoon (4.33 g) with water three times daily (1 teaspoon = 3.5 grams L-glut) Betaine HCL Pepsin (Pure Encapsulations) supports digestion of protein 15 min before meals- Start with one capsule and each protein meal work up (max 5) if you feel warmth or upset stomach back down to a lower dose and that is your dose for that size protein meal. OsteoThera capsules (Klaire/Prothera) - Bones Take 2 capsules by mouth twice daily with meals. Vitamin D [place] ([employer]) Take 1 capsule by mouth daily with food. Multi t/d 60 ct. (Pure Encapsulations) - multivitamin Take 1 capsule by mouth twice daily with meals. Magnesium Glycinate 120mg 3 at night Stress, blood sugar, thyroid/hormones/adrenals/sleep/e nergy/toxins/muscles/constipation /asthma 3 capsules with meals at night meclizine (ANTIVERT) 25 mg tab Take 1 tablet by mouth three times daily as needed (dizziness). venlafaxine (EFFEXOR) 100 mg tablet Take 100 mg by mouth twice daily. levonorgestrel (MIRENA) 20 mcg/24 hours (5-6 yrs) 52 mg IUD 1 Each by INTRAUTERINE route as directed. OMEPRAZOLE ORAL Take by mouth. albuterol HFA (PROVENTIL HFA, VENTOLIN HFA) 90 mcg/actuation inhaler Inhale 2 Puffs as instructed every 6 hours as needed for Wheezing/Shortness of Breath. No current facility-administered medications for this visit. Video Exam (Examination performed via Video enabled technology) General Appearance: 37 year old yo female in NAD; not ill or toxic appearing Abdomen: non-tender by self palpation CVA Tenderness: non-tender bilaterally by self palpation ASSESSMENT/PLAN: 1. Kidney pain - ICD9: 788.0, ICD10: N23 Due to kidney pain, I advised pt be seen in person today. Discussed concerns of pyelonephrosis Pt verbalized understanding of concerns and is agreeable to plan - All questions answered Louisa Eller PA-C If you let us know who your primary care provider is, we will send them a notification of today?s visit through our electronic medical records system. Since not all providers have access to our notifications, we strongly encourage you to share the following record of today?s visit with your primary care provider at your next visit. This will help in providing you the best care. If you do not have an established Primary Care physician and would like to continue care with a [facility] Virtual Primary Care physician, please ask your provider to place a Establish Primary Care order. Use [employer] to manage your care, wherever you are, 08/02, on your mobile device or computer. [employer] connects you to [employer] so you can access all your health information in one place and also schedule and request virtual appointments with primary care providers. [facility] 06-01-2022 Instructions Rachel Seay APRN.IRIS - 06/01/2022 3:02 PM EST macrobid for 5 days Tylenol/ibuprofen as needed for discomfort AZO otc Increase hydration -Follow up with PCP or return to clinic if symptoms not improving in 3 days or if you develop any new (or worsening) symptoms such as fever, chills or back pain go to ER. documented in this encounter [facility] 06-01-2022 History of Present illness Narrative Subjective The history is provided by the patient. No english language learner tutor was used. HPI Gomez Celis is a 37 year old female who presents today for CC of burning and frequency for 2 days. Positive for Dysuria, Increase in frequency of urination, and Back/Flank pain, Negative for Urgency, Sense of incomplete void, Fevers, Vomiting, Diarrhea, Abdominal pain , Blood in urine, and Vaginal itch or discharge Chance of : No Last intercourse: yes past week Any self-treatment attempted: Yes Number of previous UTI's in last 6 months:0 Number of previous UTI's in last 12 months: 0 Aggravating Factors: voiding Alleviating Factors include AZO with minimal relief in symptoms. BP 120/84 Pulse 86 Temp 36.6 C (97.8 F) Resp 18 Wt 103.7 kg (228 lb 9.6 oz) LMP 04/27/2022 (Within Weeks) SpO2 98% BMI 39.24 kg/m Social History Tobacco Use Smoking status: Never Smokeless tobacco: Never Vaping Use Vaping Use: Never used Substance Use Topics Alcohol use: Not Currently Comment: ocaasionally Drug use: No Comment: last marijuana use in 2008 PAST MEDICAL HISTORY Diagnosis Date Anemia Atypical glandular cells of undetermined significance (EVAN) on cervical Pap smear 02/27/2016 Bilateral ovarian cysts follicular; TVUS 10/2011 Depressive disorder, not elsewhere classified Infertility, female PCOS (polycystic ovarian syndrome) [facility] 06/16/05 HGSIL-LEEP Vaginal candidiasis Varicella without mention of complication @ 4yrs of age I have confirmed and edited as necessary, the [facility] Review of Systems Constitutional: Negative for chills and fever. Gastrointestinal: Negative for abdominal pain, nausea and vomiting. Genitourinary: Positive for dysuria, flank pain, frequency and urgency. Negative for hematuria. Objective Physical Exam Vitals and nursing note reviewed. Constitutional: Appearance: Normal appearance. Pulmonary: Effort: Pulmonary effort is normal. Abdominal: General: Bowel sounds are normal. There is no abdominal bruit. Palpations: Abdomen is not rigid. There is no mass or pulsatile mass. Tenderness: There is no abdominal tenderness. There is no guarding or rebound. Negative signs include Beach's sign and McBurney's sign. Skin: General: Skin is warm and dry. Neurological: Mental Status: She is alert and oriented to person, place, and time. Psychiatric: Mood and Affect: Affect normal. ASSESSMENT/PLAN: 1. Urinary frequency - ICD9: 788.41, ICD10: R35.0 (primary diagnosis) acute - UA positive for lizzie esterase and nitrates - Send urine for culture - Begin treatment with Macrobid 100 mg BID for 5 days - Patient education for prevention given - UA DIP, URINE (POC) - URINE CULTURE 2. Acute lower UTI - ICD9: 599.0, ICD10: N39.0 Macrobid Tylenol/ibuprofen as needed for discomfort AZO otc Increase hydration -Follow up with PCP or return to clinic if symptoms not improving in 3 days or if you develop any new (or worsening) symptoms such as fever, chills or back pain go to ER. Diagnosis and treatment plan were discussed and questions were answered to the patient's satisfaction. Pt acknowledged understanding of concepts and follow up plan. Specific signs and symptoms that would indicate the need for higher level of care were discussed in detail warranting prompt ER evaluation. Rachel Seay APRN.IRIS documented in this encounter [facility] 06-01-2022 History of Present illness Narrative Telemedicine Visit - Distance Health Virtual Visit Note Patient seen on [employer] Online platform. Location of patient: [place] History of Present Illness Gomez Celis is a 37 year old old female with a history of UTI symptoms for 2 days. Urinary symptoms ROS: Positive for Dysuria, Increase in frequency of urination, Urgency, and Back/Flank pain, Negative for Fevers \ PAST MEDICAL HISTORY Diagnosis Date Anemia Atypical glandular cells of undetermined significance (EVAN) on cervical Pap smear 02/27/2016 Bilateral ovarian cysts follicular; TVUS 10/2011 Depressive disorder, not elsewhere classified Infertility, female PCOS (polycystic ovarian syndrome) [facility] 11/29/05 HGSIL-LEEP Vaginal candidiasis Varicella without mention of complication @ 4yrs of age PAST SURGICAL HISTORY Procedure Laterality Date DELIVERY ONLY 12/2009 , low transverse IUD REMOVAL ([employer]PT)_*FL 02/22/2016 At [facility] OFFICE [facility]EE 2004 PAST SURGICAL HISTORY OF 3RD GRADE NEEDLE REMOVED FROM FOOT PAST SURGICAL HISTORY OF WISDOM TEETH EXTRACTED FAMILY HISTORY Problem Relation Age of Onset Depression Father Depression Mother Thyroid Mother No Known Problems Sister No Known Problems Brother Diabetes Maternal Grandmother Dementia Maternal Grandfather Breast Cancer Paternal Grandmother Aneurysm Paternal Grandmother Colon Cancer Paternal Grandfather Heart Attack Paternal Grandfather No Known Problems Daughter other (IUFD 20 weeks) Son Social History Tobacco Use Smoking status: Never Smokeless tobacco: Never Vaping Use Vaping Use: Never used Substance Use Topics Alcohol use: Not Currently Comment: ocaasionally Drug use: No Comment: last marijuana use in 2008 ALLERGIES Allergen Reactions Augmentin [Amoxicil* Diarrhea, Vomiting Current Outpatient Medications Medication Sig o-xcupftlte-ubfyjxmr root extract-aloe leaf extract (GLUTAGENICS) [id number] powder Mix one teaspoon (4.33 g) with water three times daily (1 teaspoon = 3.5 grams L-glut) Betaine HCL Pepsin (Pure Encapsulations) supports digestion of protein 15 min before meals- Start with one capsule and each protein meal work up (max 5) if you feel warmth or upset stomach back down to a lower dose and that is your dose for that size protein meal. OsteoThera capsules (Klaire/Prothera) - Bones Take 2 capsules by mouth twice daily with meals. Vitamin D [place] (AMCAD for Atticous) Take 1 capsule by mouth daily with food. Multi t/d 60 ct. (Pure Encapsulations) - multivitamin Take 1 capsule by mouth twice daily with meals. Magnesium Glycinate 120mg 3 at night Stress, blood sugar, thyroid/hormones/adrenals/sleep/e nergy/toxins/muscles/constipation /asthma 3 capsules with meals at night meclizine (ANTIVERT) 25 mg tab Take 1 tablet by mouth three times daily as needed (dizziness). venlafaxine (EFFEXOR) 100 mg tablet Take 100 mg by mouth twice daily. levonorgestrel (MIRENA) 20 mcg/24 hours (5-6 yrs) 52 mg IUD 1 Each by INTRAUTERINE route as directed. OMEPRAZOLE ORAL Take by mouth. albuterol HFA (PROVENTIL HFA, VENTOLIN HFA) 90 mcg/actuation inhaler Inhale 2 Puffs as instructed every 6 hours as needed for Wheezing/Shortness of Breath. No current facility-administered medications for this visit. Video Exam (Examination performed via Video enabled technology) General Appearance: 37 year old yo female in NAD; not ill or toxic appearing Abdomen: non-tender by self palpation CVA Tenderness: non-tender bilaterally by self palpation ASSESSMENT/PLAN: 1. Kidney pain - ICD9: 788.0, ICD10: N23 Due to kidney pain, I advised pt be seen in person today. Discussed concerns of pyelonephrosis Pt verbalized understanding of concerns and is agreeable to plan - All questions answered Louisa Eller PA-C If you let us know who your primary care provider is, we will send them a notification of today s visit through our electronic medical records system. Since not all providers have access to our notifications, we strongly encourage you to share the following record of today s visit with your primary care provider at your next visit. This will help in providing you the best care. If you do not have an established Primary Care physician and would like to continue care with a [facility] Virtual Primary Care physician, please ask your provider to place a Establish Primary Care order. Use [employer] to manage your care, wherever you are, 08/02, on your mobile device or computer. [employer] connects you to [employer] so you can access all your health information in one place and also schedule and request virtual appointments with primary care providers. documented in this encounter [facility] 01-05-2022 Note HNO ID: [id number] Author: Nitesh More [facility] Service: ? Author Type: Health Educator Type: Progress Notes Filed: 01/05/2022 10:45 AM Note Text: Health Coaching Follow-up Virtual Current Focus: Nutrition and Physical Activity Nutrition: Starting elimination 01/13 Social Support: will begin dietary changes with her. Family vacation 01/11. Stress: lifestyle domain not prioritized today Physical Activity: lifestyle domain not prioritized today Mindset: PT is eager to make adjustments with diet. She feels confident and prepared with concrete plan created 01/05. Sleep: lifestyle domain not prioritized today Wheel of Wellness Self-Assessment: Wellness Vision: SMART Goal(s)/Current Plan: Drink more water with every meal, have water bottles readily avaiable. Start the elimination diet 01/13. Grocery shop for wholesome foods on Sundays. Create daily home cooked meals for dinner Wednesday-Wednesday. Create breakfasts with dairy free/gluten free options. Flexible convenient lunch options. Recommended Follow-up: monthly Time Spent with patient: 30 minutes Consult Billing Type: 1 increment (30 minutes) Number of Increments: 1 (30 minutes) Signed by: Nitesh More, [facility] Health Primer Charging Tool Setter WHEEL OF WELLNESS: Nutrition Satisfaction: 2 Dissatisfied Nutrition Willingness: 4 Extremely Willing Nutrition Confidence: 3 Somewhat Confident Sleep Satisfaction: 2 Dissatisfied Sleep Willingness: 4 Extremely Willing Sleep Confidence: 2 Not Very Confident Stress Resilience Satisfaction: 3 Satisfied Stress Resilience Willingness: 4 Extremely Willing Stress Resilience Confidence: 4 Extremely Confident Social Support Satisfaction: 3 Satisfied Social Support Willingness: 3 Somewhat Willing Social Support Confidence: 3 Somewhat Confident Mindness Satisfaction: 3 Satisfied Mindness Willingness: 4 Extremely Willing Mindset Confidence: 4 Extremely Confident Physical Actvity Satisfaction: 1 Extremely Dissatisfied Physical Activity Willingness: 3 Somewhat Willing Physical Activity Confidence: 2 Not Very Confident Total Score: 54 [facility] 01-05-2022 Note Education ([facility]) GOMEZ CELIS ([id number]) 1985 F CHT Date Time Provider Department 01/05/22 9:30 AM NITESH MORE [facility] Reason for Visit: Established Patient [175] Primary Visit Diagnosis:Encounter for person encountering health services [Z76.89] During your visit today, we recorded the following information about you: Allergies As of Date: 01/05/2022 Noted Allergy Reaction AUGMENTIN (AMOXICILLIN-POT CLAVUL*05/01/2005 6 - Diarrhea 11 - Vomiting Date Reviewed: 12/31/2021 Reviewed by: Odalis Suazo LPN - Fully Assessed Prescriptions as of 01/05/2022 - f-wyjgioolq-zhjzlrfp root extract-aloe leaf extract (GLUTAGENICS) [id number] powder Mix one teaspoon (4.33 g) with water three times daily (1 teaspoon = 3.5 grams L-glut) - Betaine HCL Pepsin (Pure Encapsulations) supports digestion of protein 15 min before meals- Start with one capsule and each protein meal work up (max 5) if you feel warmth or upset stomach back down to a lower dose and that is your dose for that size protein meal. - OsteoThera capsules (Klaire/Prothera) - Bones Take 2 capsules by mouth twice daily with meals. - Vitamin D [place] (Designs for Atticous) Take 1 capsule by mouth daily with food. - Multi t/d 60 ct. (Pure Encapsulations) - multivitamin Take 1 capsule by mouth twice daily with meals. - Magnesium Glycinate 120mg 3 at night Stress, blood sugar, thyroid/hormones/adrenals/sleep/e nergy/toxins/muscles/constipation /asthma 3 capsules with meals at night - meclizine (ANTIVERT) 25 mg tab Take 1 tablet by mouth three times daily as needed (dizziness). - venlafaxine (EFFEXOR) 100 mg tablet Take 100 mg by mouth twice daily. - levonorgestrel (MIRENA) 20 mcg/24 hours (5-6 yrs) 52 mg IUD 1 Each by INTRAUTERINE route as directed. - OMEPRAZOLE ORAL Take by mouth. - albuterol HFA (PROVENTIL HFA, VENTOLIN HFA) 90 mcg/actuation inhaler Inhale 2 Puffs as instructed every 6 hours as needed for Wheezing/Shortness of Breath. Encounter Status:Closed by NITESH MORE on 01/05/22 [facility] 01-05-2022 History of Present illness Narrative Health Coaching Follow-up Virtual Current Focus: Nutrition and Physical Activity Nutrition: Starting elimination 01/13 Social Support: will begin dietary changes with her. Family vacation 01/11. Stress: lifestyle domain not prioritized today Physical Activity: lifestyle domain not prioritized today Mindset: PT is eager to make adjustments with diet. She feels confident and prepared with concrete plan created 01/05. Sleep: lifestyle domain not prioritized today Wheel of Wellness Self-Assessment: Wellness Vision: SMART Goal(s)/Current Plan: Drink more water with every meal, have water bottles readily avaiable. Start the elimination diet 01/13. Grocery shop for wholesome foods on Sundays. Create daily home cooked meals for dinner . Create breakfasts with dairy free/gluten free options. Flexible convenient lunch options. Recommended Follow-up: monthly Time Spent with patient: 30 minutes Consult Billing Type: 1 increment (30 minutes) Number of Increments: 1 (30 minutes) Signed [facility]: [facility] Primer Charging Tool Setter WHEEL OF WELLNESS: Nutrition Satisfaction: 2 Dissatisfied Nutrition Willingness: 4 Extremely Willing Nutrition Confidence: 3 Somewhat Confident Sleep Satisfaction: 2 Dissatisfied Sleep Willingness: 4 Extremely Willing Sleep Confidence: 2 Not Very Confident Stress Resilience Satisfaction: 3 Satisfied Stress Resilience Willingness: 4 Extremely Willing Stress Resilience Confidence: 4 Extremely Confident Social Support Satisfaction: 3 Satisfied Social Support Willingness: 3 Somewhat Willing Social Support Confidence: 3 Somewhat Confident Mindness Satisfaction: 3 Satisfied Mindness Willingness: 4 Extremely Willing Mindset Confidence: 4 Extremely Confident Physical Actvity Satisfaction: 1 Extremely Dissatisfied Physical Activity Willingness: 3 Somewhat Willing Physical Activity Confidence: 2 Not Very Confident Total Score: 54 documented in this encounter [facility] 01-05-2022 Instructions [facility] 01/05/2022 10:30 AM EDT Images from the original note were not included. [facility] HEALTH EXPLOSIVE ORDNANCE SPECIALIST FOLLOW-UP Staff Health Primer Charging Tool Setter Follow-Up:Follow up in 4-6 Weeks. Schedule through [employer] or by calling the [facility] [facility]. [phone] option #1 Wellness Vision: Lifestyle Focus Area: Nutrition and Physical Activity SMART Goal: Drink more water with every meal, have water bottles readily avaiable. Start the elimination diet 01/13. Grocery shop for wholesome foods on Sundays. Create daily home cooked meals for dinner . Create breakfasts with dairy free/gluten free options. Flexible convenient lunch options. Recommended Resources from [employer] Primer Charging Tool Setter Portal: Nutrition o Contact CFM Registered Dietitian o Mindful and Intuitive Eating o Simple Steps to Eat Mindfully Movement o The Power of Movement o Yoga on the Go o Resources and Referrals-Active Living o Resources and Referrals-Exercise and Fitness We offer group coaching sessions focused on Mindfulness. How to [place] for the Mindfulness Group Coaching Program -[place] for the Mindfulness group coaching program at [email or web address] Ordering Supplements: Supplements can be ordered from the [facility]'s [facility]'s Online Store: [email or web address] New patients to the [employer] Shop will need to enter the provider code FUNCTIONAL to register their account. documented in this encounter [facility] 12-31-2021 Note HNO ID: [id number] Author: Yudi Steen RD Service: ? Author Type: Registered Dietitian Type: Progress Notes Filed: 12/31/2021 4:31 PM Note Text: [facility] Nutrition Therapy: Initial Assessment (Group) New Patient Shared Nutrition Appointment In-Person Patient Name: Gomez Celis Class Topic: Introduction to Functional Nutrition and Implementation of Foundational Food Plan Education Materials: Food Plan Comprehensive Guide, Weekly Statistical Geneticist and Recipes, Phytonutrient Spectrum Foods, Product Guide, Simple Meal and Snack Ideas Chief Concerns: -Improve physical health -Improve mental health -holistically approach wellness Obesity, depression, anxiety, PTSD, food pain, reflux, vertigo, joint pain, borderline DM Is the patient having any pain that is interfering with oral intake? Unknown Past Medical History: PAST MEDICAL HISTORY Diagnosis Date - Anemia - Atypical glandular cells of undetermined significance (EVAN) on cervical Pap smear 02/27/2016 - Bilateral ovarian cysts follicular; TVUS 10/2011 - Depressive disorder, not elsewhere classified - Infertility, female - PCOS (polycystic ovarian syndrome) - [facility] 06/16/05 HGSIL-LEEP - Vaginal candidiasis - Varicella without mention of complication @ 4yrs of age Anthropometrics: LMP 07/08/2019 Height: Last 1 Encounter Ht Readings: Date: Ht: 12/31/2021 162.6 cm (5' 4 ) Current weight: Last 1 Encounter Wt Readings: Date: Wt: 12/31/2021 104.3 kg (230 lb) Wt: 104.3 kg (230 lb) BMI: 39.48 kg/(m2) Nutrition Assessment Special diet(s) or nutritional program: No Food Sensitivities: Yes- chocolate, alcohol Food Aversions: No Craving/Binging: Yes Diet Recall: Yes B:Eggs, toast, OR bagel, lox, cream cheese, iced coffee or latte L: Snack on things or skip, maybe D: Meat + veggie, pasta and veggie Snacks: Cookies, yogurts Beverages: Coffee. WAY too little water Nutrition-focused physical examination (NFPE)/Symptom Review MSQ Symptom Score: 190. Digestive symptoms: Yes, nausea or vomiting, heartburn, diarrhea, intestinal or stomach pain, passing gas Weight Concerns: Yes, binge, compulsion, cravings, excessive weight; BMI>35 Assessment and Plan 36 year old female presents for nutrition assessment relative to chief concerns above. Dietary recall and history indicates inadequate intake of micronutrient rich foods, regular intake of ultra-processed foods and intake of foods which may trigger hypersensitivity reactions. Past nutrition-related medical history is notable for reflux, vertigo, joint pain, borderline DM. In order to reduce diet-related inflammation suspected as symptom trigger, improve nutritional inadequacies suspected as symptom or disease contributor and identify food sensitivities suspected as symptom trigger for complaints of anxiety/depression (Primary Diagnosis) patient is recommended the Elimination whole foods based nutrient dense food plan designed to improve overall diet quality, nutritional adequacy and to minimize potential food triggers. Provider Nutrition Notes: Elimination, low histamine Nutrition Diagnosis: Food and nutrition related knowledge deficit (NB-1.1) related to lack of prior education as evidenced by patient's verbalized inaccurate/incomplete information. Nutrition Intervention 12/31/2021: Nutrition Education Content and Nutrition Education Application 1. Plan from the start. Access the Functional Nutrition Portal in [employer] to access your food plan comprehensive guide, weekly recipe product planner, and food list. Shop for foods and ingredients from the food list. 2. Follow your initial nutrition prescription for 3-8 weeks Elimination Diet The Elimination Food Plan removes common foods that may be causing symptoms and, with reintroduction, helps patients identify the foods that may be triggering their symptoms. Food Plan Principles Identify Food Triggers Reduce Inflammation Support Healthy Microbiome No calorie restriction Promote body awareness to food As needed, gradually eliminate caffeine, alcohol, and sugar before you start the full plan. Include Avoid Fruits Healthy oils Lean meats Legumes Nuts Seeds Vegetables Non-starchy vegetables Gluten Dairy Eggs [place] Soy Pork Beef Shellfish Peanuts Processed meats Caffeinated coffee Black tea Alcohol Chocolate Modifier: Low-Histamine Histamine sensitivity results from a reduced capacity for the body to break down histamine in a timely and efficient manner. As a result, histamine levels rise and symptoms typical or histamine excess develop. Histamine is a bioactive chemical (specifically, a biogenic amine) that is indispensable in the efficient functioning of many body systems. As the level of histamine rises in the body, these effects become apparent as symptoms. Foods rich in histamine include: - Any (more content not included)... [facility] 12-31-2021 Note HNO ID: [id number] Author: Marcy Norman, [facility] ED Service: ? Author Type: Health Educator Type: Progress Notes Filed: 12/31/2021 2:02 PM Note Text: GROUP HEALTH EXPLOSIVE ORDNANCE SPECIALIST COHORT Patient was part of an in-person, group health golf coach session. Patient received education and participated in discussion about modifiable lifestyle factors and healthy habits, with emphasis on the role of the health golf coach within the functional medicine model and the Wheel of Wellness. Other topics of discussion included Functional Medicine process and scheduling for follow-up visits and support prior to next visit. ................................. ................................. ......... ............................ FOLLOW UP: Additional support needed: 30-Minute Consultation with Health Primer Charging Tool Setter in 2-3 weeks Time Spent with Patient: 30 minutes Signed by: Marcy Norman [facility] 12-31-2021 Note Education ([facility]) GOMEZ CELIS ([id number]) 1985 F CHT Date Time Provider Department 12/31/21 1:30 PM MARCY NORMAN Reason for Visit: New Patient [172] Primary Visit Diagnosis:Encounter for person encountering health services [Z76.89] During your visit today, we recorded the following information about you: Allergies As of Date: 12/31/2021 Noted Allergy Reaction AUGMENTIN (AMOXICILLIN-POT CLAVUL*05/01/2005 6 - Diarrhea 11 - Vomiting Date Reviewed: 12/31/2021 Reviewed by: Odalis Suazo LPN - Fully Assessed Prescriptions as of 12/31/2021 - l-hjtcvfxil-hfhyajgk root extract-aloe leaf extract (GLUTAGENICS) [id number] powder Mix one teaspoon (4.33 g) with water three times daily (1 teaspoon = 3.5 grams L-glut) - Betaine HCL Pepsin (Pure Encapsulations) supports digestion of protein 15 min before meals- Start with one capsule and each protein meal work up (max 5) if you feel warmth or upset stomach back down to a lower dose and that is your dose for that size protein meal. - OsteoThera capsules (Klaire/Prothera) - Bones Take 2 capsules by mouth twice daily with meals. - Vitamin D [place] (AMCAD for Atticous) Take 1 capsule by mouth daily with food. - Multi t/d 60 ct. (Pure Encapsulations) - multivitamin Take 1 capsule by mouth twice daily with meals. - Magnesium Glycinate 120mg 3 at night Stress, blood sugar, thyroid/hormones/adrenals/sleep/e nergy/toxins/muscles/constipation /asthma 3 capsules with meals at night - meclizine (ANTIVERT) 25 mg tab Take 1 tablet by mouth three times daily as needed (dizziness). - venlafaxine (EFFEXOR) 100 mg tablet Take 100 mg by mouth twice daily. - levonorgestrel (MIRENA) 20 mcg/24 hours (5-6 yrs) 52 mg IUD 1 Each by INTRAUTERINE route as directed. - OMEPRAZOLE ORAL Take by mouth. - albuterol HFA (PROVENTIL HFA, VENTOLIN HFA) 90 mcg/actuation inhaler Inhale 2 Puffs as instructed every 6 hours as needed for Wheezing/Shortness of Breath. Encounter Status:Closed by MARCY NORMAN on 12/31/21 [facility] 12-31-2021 Note Education ([facility]) GOMEZ CELIS ([id number]) 1985 F CHT Date Time Provider Department 12/31/21 12:30 PM YUDI STEEN [facility] Reason for Visit: New Patient [172] Primary Visit Diagnosis:Anxiety and depression [F41.9, F32.A] Other Visit Diagnoses:Gastroesophageal reflux disease with esophagitis, unspecified whether hemorrhage [K21.00] Borderline diabetes mellitus [R73.03] Dietary counseling and surveillance [Z71.3] During your visit today, we recorded the following information about you: Allergies As of Date: 12/31/2021 Noted Allergy Reaction AUGMENTIN (AMOXICILLIN-POT CLAVUL*05/01/2005 6 - Diarrhea 11 - Vomiting Date Reviewed: 12/31/2021 Reviewed by: Odalis Suazo LPN - Fully Assessed Prescriptions as of 12/31/2021 - y-xfoxedvkg-iryziano root extract-aloe leaf extract (GLUTAGENICS) [id number] powder Mix one teaspoon (4.33 g) with water three times daily (1 teaspoon = 3.5 grams L-glut) - Betaine HCL Pepsin (Pure Encapsulations) supports digestion of protein 15 min before meals- Start with one capsule and each protein meal work up (max 5) if you feel warmth or upset stomach back down to a lower dose and that is your dose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 rubs. No ectopy. LUNGS: Lungs clear to auscultation. No wheezing or ronchi. ABDOMEN: Normal abdominal exam, Abdomen soft, non-tender. Bowel sounds normal. No masses, organomegaly NEURO: Gait normal. Reflexes normal and symmetric. Sensation grossly intact., Cranial nerves II-XII intact SKIN Temperature Hands: normal Temperature Feet: normal Texture of Skin: Normal Color: Normal Hydration: Normal Periorifice: Normal Lesions: None EXTREMITIES Nails: normal Peripheral Sensation: Normal Muscle Strength: Normal Muscle Symmetry: Normal Results for GOMEZ CELIS ( ) as of 12/31/2021 07:16 Ref. Range 10/07/2021 08:13 Sodium Latest Ref Range: 136 - 144 mmol/L 138 Potassium Latest Ref Range: 3.7 - 5.1 mmol/L 4.4 Chloride Latest Ref Range: 97 - 105 mmol/L 101 CO2 Latest Ref Range: 22 - 30 mmol/L 24 BUN Latest Ref Range: 7 - 21 mg/dL 17 Creatinine Latest Ref Range: 0.58 - 0.96 mg/dL 0.81 Glucose Latest Ref Range: 74 - 99 mg/dL 124 (H) Glucose, Fasting Latest Ref Range: 74 - 99 mg/dL 108 (H) Protein, Total Latest Ref Range: 6.3 - 8.0 g/dL 7.1 Calcium Latest Ref Range: 8.5 - 10.2 mg/dL 9.3 Albumin Latest Ref Range: 3.9 - 4.9 g/dL 4.1 Bilirubin, Total Latest Ref Range: 0.2 - 1.3 mg/dL 0.2 Bilirubin, Conjug Latest Ref Range: <0.2 mg/dL <0.2 Alkaline Phosphatase Latest Ref Range: 34 - 123 U/L 83 ALT Latest Ref Range: 7 - 38 U/L 37 AST Latest Ref Range: 13 - 35 U/L 28 Anion Gap Latest Ref Range: 9 - 18 mmol/L 13 eGFR Latest Ref Range: >=60 mL/min/1.73m 97 Cholesterol, Total Latest Ref Range: <200 mg/dL 209 (H) Triglyceride Latest Ref Range: <150 mg/dL 105 Fasting Time Latest Units: hrs 10 HDL Cholesterol Latest Ref Range: >39 mg/dL 41 LDL Cholesterol Latest Ref Range: <100 mg/dL 147 (H) VLDL Cholesterol Latest Ref Range: <30 mg/dL 21 TC:HDL Ratio Latest Ref Range: <5.10 5.10 (H) LDL:HDL Ratio Latest Ref Range: <2.54 3.59 (H) Non HDL Cholesterol Latest Ref Range: <130 mg/dL 168 (H) Vitamin D 25 Hydroxy Latest Ref Range: 31.0 - 80.0 ng/mL 26.6 (L) Hematocrit Latest Ref Range: 36.0 - 46.0 % 42.2 TSI Qualitative Latest Ref Range: Negative Negative Hemoglobin A1C Latest Ref Range: 4.3 - 5.6 % 5.8 (H) Estimated Average Glucose Latest Units: mg/dL 120 Free T4 Latest Ref Range: 0.9 - 1.7 ng/dL 0.8 (L) TSH Latest Ref Range: 0.270 - 4.200 mIU/L 2.420 TSI Latest Ref Range: <0.55 IU/L 0.10 Free T3 Latest Ref Range: 2.3 - 4.1 pg/mL 3.2 DHEA-S Latest Ref Range: 60.9 - 337.0 ug/dL 82.4 FSH Latest Ref Range: See comment mIU/mL 4.3 Testosterone Latest Ref Range: 8 - 60 ng/dL 42 Testosterone Free Latest Ref Range: 0.06 - 1.00 ng/dL 1.01 (H) Reverse T3 Latest Ref Range: 9.0 - 27.0 ng/dL 8.5 (L) WBC Latest Ref Range: 3.70 - 11.00 k/uL 6.67 RBC Latest Ref Range: 3.90 - 5.20 m/uL 4.84 Hemoglobin Latest Ref Range: 11.5 - 15.5 g/dL 14.3 Platelet Count Latest Ref Range: 150 - 400 k/uL 255 MCV Latest Ref Range: 80.0 - 100.0 fL 87.2 MCH Latest Ref Range: 26.0 - 34.0 pg 29.5 MCHC Latest Ref Range: 30.5 - 36.0 g/dL 33.9 MPV Latest Ref Range: 9.0 - 12.7 fL 10.2 RDW-CV Latest Ref Range: 11.5 - 15.0 % 13.8 DTYPE Unknown Auto Neut% Latest Units: % 62.0 Abs Neut (ANC) Latest Ref Range: 1.45 - 7.50 k/uL 4.13 Lymph% Latest Units: % 26.8 Abs Lymph Latest Ref Range: 1.00 - 4.00 k/uL 1.79 [place]% Latest Units: % 7.8 Abs [place] Latest Ref Range: <0.87 k/uL 0.52 Eosin% Latest Units: % 2.4 Abs Eosin Latest Ref Range: <0.46 k/uL 0.16 Baso% Latest Units: % 0.7 Abs Baso Latest Ref Range: <0.11 k/uL 0.05 Immature Gran % Latest Units: % 0.3 IMMATURE GRANS (ABS) Latest Ref Range: <0.10 k/uL <0.03 NRBC Latest Units: /100 WBC 0.0 Absolute nRBC Latest Ref Range: <0.01 k/uL <0.01 Initial Functional Medicine Assessment Underlying Causes: stress, trauma, toxins, adverse reaction to food, infection, nutritional insufficiencies or excessess, sleep Nutritional Assessment Vit d 26 Digestive Function GERD-intermittent PPI for 10 years BM daily but varies from soft to loose Gas Bloating Inflammation/Immune Function Borderline DM Results for GOMEZ CELIS ( ) as of 12/31/2021 07:16 Ref. Range 10/07/2021 08:13 Hemoglobin A1C Latest Ref Range: 4.3 - 5.6 % 5.8 (H) Obesity BMI 39 Hyperlipidemia TC 209 LDL 147 H/o HPV, s/p leep with high grade HPV Energy Production/Function: Fatigue Difficulty with sleep maintenance b/c is Migraines ocular none for 2 years Headaches 4-5x/month Vertigo daily in PT Detoxification Function Chemical sensitivity Cigarette smoking Mold exposure Drinking/drugs Hormonal Function: Anxiety Depression PTSD Trauma PCOS Results for GOMEZ CELIS ( ) as of 12/31/2021 07:16 Ref. Range 10/07/2021 08:13 TSH Latest Ref Range: 0.270 - 4.200 mIU/L 2.420 TSI Qualitative Latest Ref Range: Negative Negative TSI Latest Ref Range: <0.55 IU/L 0.10 Free T3 Latest Ref Range: 2.3 - 4.1 pg/mL 3.2 DHEA-S Latest Ref Range: 60.9 - 337.0 ug/dL 82.4 FSH Latest Ref Range: See comment mIU/mL 4.3 Testosterone Latest Ref Range: 8 - 60 ng/dL 42 Testosterone Free Latest Ref Range: 0.06 - 1.00 ng/dL 1.01 (H) Reverse T3 Latest Ref Range: 9.0 - 27.0 ng/dL 8.5 (L) Structural Function: hypermobile Assessment Assessment: F41.9, F32.A Anxiety and depression (primary encounter diagnosis) Z68.39 BMI 39.0-39.9,adult F43.10 PTSD (post-traumatic stress disorder) K21.00 Gastroesophageal reflux disease with esophagitis, unspecified whether hemorrhage R73.03 Borderline diabetes mellitus Z77.120 Mold exposure Plan and Lifestyle Prescription Plan/Instructions/Resources: 36yo f with PMH anxiety, depression, PTSD, borderline DM, BMI 39, reflux and shelter trauma for an evaluation Root causes: hx, recurrent antibiotics, trauma, long history of alcohol, gut microbiome, vit deficiency, food sensitivity, and possible mold/pesticides 5 R program (remove inflammatory foods, correct dysbiosis, replace deficient enzymes, reinoculate probiotic/prebiotic needs, repair/heal gut lining - GI Revive , rebalance lifestyle A. Breath test Lactulose breath test at [facility] only Please call [phone]. to schedule and receive instructions about how to prepare for the breath test B. Start supplements one at a time, use only what you can tolerate. Add new supplement every 3-4 days if you are okay with it. If you can not tolerate something, do not use it. A. Glutagenics 3 months after breath test NOT IF , TRY COLLAGEN POWDER REST ARE SAFE IN B. Betaine 1-2 caps with meals 3 months after breath test C. Mag glycinate 2-3 caps at night before breath test D. [place] 3 2 g daily before breath test E. Vitamin D/K before breath test F. Multi t/d Most days before breath test C. Trauma Read the book the body keeps the score Keep doing EMDR (Eye Movement Desensitization Reprocessing) Go to www.emdr.com I recommend regular practices of: A. Meditation: try to do this 2x/day for 5-10 min; first thing in the am while in bed. Prop yourself up and breath slowly for 10 minutes. Can use an nina to help with this and in the evening for 10 min B. [employer]-application that has different videos/audio that are 5-10 min to retrain the brain with this. You can pick what the issue is. You will need noise canceling headphones if buying those headphones they recommend. C. Try to be outside as much as possible, especially in nature. This is calming for the body and the mast cells. Read the benefits of forest bathing https://www.Zer[employer].co m/travel/article/jymvpl-yycudyv-i hqwrq-qpye-soxgyh D. Drink Holy Basil Tea or AVEDA tea-readily available, herbal tea that can calm the body down. You can drink it as much as you like D. GERD-wait for breath test and if positive and start treatment especially Glutagenics, then try to wean off prilosec-decrease to 20mg every day; after 2 weeks, decrease to 20mg every other day, after 2 weeks, decrease to 20mg 3x/week then to 2x/week and then just as needed. For additional support, use DGL chews with each meal if needed Medications/Supplements Recommended: Medication orders placed this encounter Betaine HCL Pepsin (Pure Encapsulations) supports digestion of protein Si min before meals- Start with one capsule and each protein meal work up (max 5) if you feel warmth or upset stomach back down to a lower dose and that is your dose for that size protein meal. Dispense: 250 capsule Refill: 0 b-xzsgegesm-ybyffkbb root extract-aloe leaf extract (GLUTAGENICS) [phone] powder Sig: Mix one teaspoon (4.33 g) with water three times daily (1 teaspoon = 3.5 grams L-glut) Magnesium Glycinate 120mg 3 at night Stress, blood sugar, thyroid/hormones/adrenals/sleep/e nergy/toxins/muscles/constipation /asthma Si capsules with meals at night Refill: 0 Multi t/d 60 ct. (Pure Encapsulations) - multivitamin Sig: Take 1 capsule by mouth twice daily with meals. Refill: 0 OsteoThera capsules (Klaire/Prothera) - Bones Sig: Take 2 capsules by mouth twice daily with meals. Refill: 0 Vitamin D [place] ([employer]) Sig: Take 1 capsule by mouth daily with food. I recommend the supplements from the [facility] Healthy Living Online Store at [email or web address] om/ as we have thoroughly evaluated the research and use only highest quality supplements. Please use code: functional. Future Plans: Follow up: Please schedule a follow up visit in- person or virtual with the following Caregivers: Dr Silvio Quinonez LIFESTYLE PRESCRIPTION Functional Nutrition: ELIMINATION: Low Histamine: DON'T CHANGE DIET EVEN IF BREATH TEST IS POSITIVE At the [facility], we focus on the person as a whole. Mind, Body, and Spirit. Our Health Coaches are here to support you along this journey. Health Coaching is a valuable (& FREE) service at the [facility] which we offer to all of our patients. Their role is to help you put your functional medicine care plan into action and help you achieve your health goals. Working with your Health Primer Charging Tool Setter on a regular basis can help you prioritize your next steps and build a strong foundation for healing. Your Health Primer Charging Tool Setter will partner with you to develop a personalized plan for movement, sleep, and stress management. Exercise and Movement: Being consistently active helps you to live longer, have a better quality of life, improve your mental health, and improve your self-image. No matter your current activity level, there is a form of movement for you! Our Health Coaches can share valuable resources, provide accountability, help with goal setting, and offer encouragement! Sleep Health: Getting a good night s sleep is not just about quantity, but also quality. Both are critical to helping the body and mind repair and replenish from the day s activities. Among the many health benefits, a good night s sleep helps improve memory, boost the immune system, enhance mood, lower stress hormones and can even reduce pain! Learn how to protect your sleep with one of our Health Coaches. Your body and mind will thank you! Stress Resilience and Episcopalian: Don t let stress run the show! In a world full of stress and demands, practicing self-care through restorative activities is critical. Restorative activities, such as meditation, guided imagery, breathing techniques, gratitude journaling, and mindfulness, are proven ways to not just calm the mind, but also heal the body. During your health coaching appointment, you ll be able to build valuable skills that will help you not just manage stress, but thrive! Referrals: Health Coaching: Within the next two weeks, please schedule with your Health Primer Charging Tool Setter in order to create an individualized lifestyle plan. You can call to schedule. Behavioral Health Therapist: If I recommended counseling or individual therapy, please schedule an individual appointment with our Functional Medicine Behavioral Health Therapist after your visit today. A Behavioral Health Therapist helps patients identify and understand feelings and behaviors, experience the process of making positive change, and gain healthy coping skills. Our Behavioral Health Therapist specializes in both traditional and holistic psychotherapy. During the next 6-8 weeks you'll be working on your diet plan discussed with our syruper, allowing for gentle detoxification and decreasing inflammation - while we are gathering your lab results and combining those with your complete history to formulate a very personalized treatment plan. LAB results: Due to the complexity of the testing performed, we are not able to review labs via [employer] or over the phone, but please know, if any of your labs are critical we will contact you. Otherwise, we will review all your labs at your next visit. We will go over a lot of information during your follow up visit - so please be well-rested. Also make sure to schedule with the syruper (this will not happen automatically). Potential future labs: Any [facility] labs ordered take about 4 weeks to return. Do them as soon as possible so that we have the results before your next appointment. You can access them on the [facility] website and it can be beneficial if you review them prior to your next visit. [email or web address]. Read about [employer] if this was ordered. Kimberly Steve MD Time spent with patient: I spent a total of 60 minutes on the date of the service which included preparing to see the patient, [id number] patient care, completing clinical documentation, obtaining and/or reviewing separately obtained history, performing a medically appropriate examination, counseling and educating the patient/family/caregiver and ordering medications, tests, or procedures. documented in this encounter [facility] 11-24-2021 Note HNO ID: [id number] Author: Deepti Saha PA-C Service: ? Author Type: Physician Core Man Type: Progress Notes Filed: 11/24/2021 2:16 PM Note Text: This note was created using [employer]. Subjective Gomez Celis is a 36 year old female. HPI Patient presents with a chief complaint of dysuria, frequency and burning over the past day. She states she has had some nausea. She does have some lower back pain. Denies abdominal pain. No vaginal complaints. No hematuria. Patient also complaining of vertigo. She states this is a chronic problem for her especially when laying down and looking up and to the left. The past day seems to have gotten a little more frequent. She had been seen by her PCP for this previously. She had tried Dramamine in the past which helped some but really just made her sleepy. Denies any head injury. No weakness numbness or tingling. No URI symptoms. Review of Systems Constitutional: Negative. HENT: Negative. Respiratory: Negative. Cardiovascular: Negative. Gastrointestinal: Negative. Genitourinary: Positive for dysuria and urgency. Negative for hematuria. Musculoskeletal: Positive for back pain. Neurological: Positive for dizziness. All other systems reviewed and are negative. PAST MEDICAL HISTORY Diagnosis Date - Anemia - Atypical glandular cells of undetermined significance (EVAN) on cervical Pap smear 02/27/2016 - Bilateral ovarian cysts follicular; TVUS 10/2011 - Depressive disorder, not elsewhere classified - Infertility, female - PCOS (polycystic ovarian syndrome) - pmh 06/16/05 HGSIL-LEEP - Vaginal candidiasis - Varicella without mention of complication @ 4yrs of age Current Outpatient Medications Medication Sig Dispense Refill - venlafaxine (EFFEXOR) 100 mg tablet Take 100 mg by mouth twice daily. - levonorgestrel (MIRENA) 20 mcg/24 hours (5-6 yrs) 52 mg IUD 1 Each by INTRAUTERINE route as directed. 1 Each 0 - OMEPRAZOLE ORAL Take by mouth. - albuterol HFA (PROVENTIL HFA, VENTOLIN HFA) 90 mcg/actuation inhaler Inhale 2 Puffs as instructed every 6 hours as needed for Wheezing/Shortness of Breath. 1 Inhaler 2 - meclizine (ANTIVERT) 25 mg tab Take 1 tablet by mouth three times daily as needed (dizziness). 21 tablet 0 - cephALEXin (KEFLEX) 500 mg capsule Take 1 capsule by mouth twice daily for 7 days. 14 capsule 0 No current facility-administered medications for this visit. PAST SURGICAL HISTORY Procedure Laterality Date - DELIVERY ONLY 12/2009 , low transverse - IUD REMOVAL ([employer] DEPT)_*FL 02/22/2016 At [facility] - OFFICE [place] 2004 - PAST SURGICAL HISTORY OF 3RD GRADE NEEDLE REMOVED FROM FOOT - PAST SURGICAL HISTORY OF WISDOM TEETH EXTRACTED FAMILY HISTORY Problem Relation Age of Onset - Depression Father - Depression Mother - Thyroid Mother - No Known Problems Sister - No Known Problems Brother - Diabetes Maternal Grandmother - Dementia Maternal Grandfather - Breast Cancer Paternal Grandmother - Aneurysm Paternal Grandmother - Colon Cancer Paternal Grandfather - Heart Attack Paternal Grandfather - No Known Problems Daughter - other (IUFD 20 weeks) Son Social History Tobacco Use - Smoking status: Never Smoker - Smokeless tobacco: Never Used Vaping Use - Vaping Use: Never used Substance Use Topics - Alcohol use: Not Currently Comment: ocaasionally - Drug use: No Comment: last marijuana use in 2008 Objective BP 128/78 Pulse 94 Temp 36.9 ?C (98.4 ?F) Resp 18 Wt 103.9 kg (229 lb) LMP 07/08/2019 SpO2 97% BMI 39.31 kg/m? Physical Exam Vitals reviewed. Constitutional: Appearance: Normal appearance. HENT: Head: Normocephalic and atraumatic. Right Ear: Tympanic membrane, ear canal and external ear normal. Left Ear: Tympanic membrane, ear canal and external ear normal. Nose: Congestion present. Mouth/Throat: Mouth: Mucous membranes are moist. Pharynx: Oropharynx is clear. Eyes: Extraocular Movements: Extraocular movements intact. Pupils: Pupils are equal, round, and reactive to light. Cardiovascular: Rate and Rhythm: Normal rate and regular rhythm. Heart sounds: Normal heart sounds. Pulmonary: Effort: Pulmonary effort is normal. Breath sounds: Normal breath sounds. Abdominal: General: Abdomen is flat. Palpations: Abdomen is soft. Tenderness: There is no abdominal tenderness. There is no right CVA tenderness, left CVA tenderness or guarding. Musculoskeletal: Cervical back: Neck supple. Lymphadenopathy: Cervical: No cervical adenopathy. Skin: General: Skin is warm and dry. Neurological: General: No focal deficit present. Mental Status: She is alert and oriented to person, place, and time. Cranial Nerves: No cranial nerve deficit. Sensory: No sensory deficit. Motor: No weakness. Coordination: Coordination normal. Gait: Gait normal. Comments: When patient lays down and looks to the left she does (more content not included)... [facility] 11-24-2021 History of Present illness Narrative This note was created using [employer]. Subjective Gomez Celis is a 36 year old female. HPI Patient presents with a chief complaint of dysuria, frequency and burning over the past day. She states she has had some nausea. She does have some lower back pain. Denies abdominal pain. No vaginal complaints. No hematuria. Patient also complaining of vertigo. She states this is a chronic problem for her especially when laying down and looking up and to the left. The past day seems to have gotten a little more frequent. She had been seen by her PCP for this previously. She had tried Dramamine in the past which helped some but really just made her sleepy. Denies any head injury. No weakness numbness or tingling. No URI symptoms. Review of Systems Constitutional: Negative. HENT: Negative. Respiratory: Negative. Cardiovascular: Negative. Gastrointestinal: Negative. Genitourinary: Positive for dysuria and urgency. Negative for hematuria. Musculoskeletal: Positive for back pain. Neurological: Positive for dizziness. All other systems reviewed and are negative. PAST MEDICAL HISTORY Diagnosis Date Anemia Atypical glandular cells of undetermined significance (EVAN) on cervical Pap smear 02/27/2016 Bilateral ovarian cysts follicular; TVUS 10/2011 Depressive disorder, not elsewhere classified Infertility, female PCOS (polycystic ovarian syndrome) [facility] 06/16/05 HGSIL-LEEP Vaginal candidiasis Varicella without mention of complication @ 4yrs of age Current Outpatient Medications Medication Sig Dispense Refill venlafaxine (EFFEXOR) 100 mg tablet Take 100 mg by mouth twice daily. levonorgestrel (MIRENA) 20 mcg/24 hours (5-6 yrs) 52 mg IUD 1 Each by INTRAUTERINE route as directed. 1 Each 0 OMEPRAZOLE ORAL Take by mouth. albuterol HFA (PROVENTIL HFA, VENTOLIN HFA) 90 mcg/actuation inhaler Inhale 2 Puffs as instructed every 6 hours as needed for Wheezing/Shortness of Breath. 1 Inhaler 2 meclizine (ANTIVERT) 25 mg tab Take 1 tablet by mouth three times daily as needed (dizziness). 21 tablet 0 cephALEXin (KEFLEX) 500 mg capsule Take 1 capsule by mouth twice daily for 7 days. 14 capsule 0 No current facility-administered medications for this visit. PAST SURGICAL HISTORY Procedure Laterality Date DELIVERY ONLY 12/2009 , low transverse IUD REMOVAL ([employer] DEPT)_*FL 02/22/2016 At [facility] OFFICE [facility] 2004 PAST SURGICAL HISTORY OF 3RD GRADE NEEDLE REMOVED FROM FOOT PAST SURGICAL HISTORY OF WISDOM TEETH EXTRACTED FAMILY HISTORY Problem Relation Age of Onset Depression Father Depression Mother Thyroid Mother No Known Problems Sister No Known Problems Brother Diabetes Maternal Grandmother Dementia Maternal Grandfather Breast Cancer Paternal Grandmother Aneurysm Paternal Grandmother Colon Cancer Paternal Grandfather Heart Attack Paternal Grandfather No Known Problems Daughter other (IUFD 20 weeks) Son Social History Tobacco Use Smoking status: Never Smoker Smokeless tobacco: Never Used Vaping Use Vaping Use: Never used Substance Use Topics Alcohol use: Not Currently Comment: ocaasionally Drug use: No Comment: last marijuana use in 2008 Objective BP 128/78 Pulse 94 Temp 36.9 C (98.4 F) Resp 18 Wt 103.9 kg (229 lb) LMP 07/08/2019 SpO2 97% BMI 39.31 kg/m Physical Exam Vitals reviewed. Constitutional: Appearance: Normal appearance. HENT: Head: Normocephalic and atraumatic. Right Ear: Tympanic membrane, ear canal and external ear normal. Left Ear: Tympanic membrane, ear canal and external ear normal. Nose: Congestion present. Mouth/Throat: Mouth: Mucous membranes are moist. Pharynx: Oropharynx is clear. Eyes: Extraocular Movements: Extraocular movements intact. Pupils: Pupils are equal, round, and reactive to light. Cardiovascular: Rate and Rhythm: Normal rate and regular rhythm. Heart sounds: Normal heart sounds. Pulmonary: Effort: Pulmonary effort is normal. Breath sounds: Normal breath sounds. Abdominal: General: Abdomen is flat. Palpations: Abdomen is soft. Tenderness: There is no abdominal tenderness. There is no right CVA tenderness, left CVA tenderness or guarding. Musculoskeletal: Cervical back: Neck supple. Lymphadenopathy: Cervical: No cervical adenopathy. Skin: General: Skin is warm and dry. Neurological: General: No focal deficit present. Mental Status: She is alert and oriented to person, place, and time. Cranial Nerves: No cranial nerve deficit. Sensory: No sensory deficit. Motor: No weakness. Coordination: Coordination normal. Gait: Gait normal. Comments: When patient lays down and looks to the left she does become dizzy. This does resolve after a few seconds. When patient sits up from laying also becomes dizzy, this also resolves. Assessment and Plan ASSESSMENT/PLAN: 1. Urinary frequency - ICD9: 788.41, ICD10: R35.0 (primary diagnosis) acute - UA positive for lizzie esterase, hematuria and nitrates - Send urine for culture - Begin treatment with keflex for 7 days - UA DIP, URINE (POC) - URINE CULTURE - CEPHALEXIN 500 MG CAPSULE 2. Vertigo - ICD9: 780.4, ICD10: R42 Meclizine sent to the pharmacy. Likely BPPV. I did discuss with her since this has been a chronic problem she could try vestibular rehab through physical therapy. Discussed she could call [employer] [facility] to schedule this. Referral sent. - CONSULT TO PHYSICAL THERAPY Deepti Saha PA-C documented in this encounter [facility] 11-03-2021 Note HNO ID: [id number] Author: Lee Ann Zuleta APRN.RUBBER COMPOUNDER FORMULATOR Service: ? Author Type: Nurse Specialist Type: Progress Notes Filed: 11/03/2021 1:56 PM Note Text: SUBJECTIVE: DEPRESSION SCREENING Never done HEPATITIS C SCREENING Never done HPI Gomez Celis is a 36 year old female. PMH signficant from ACTIVE PROBLEM LIST Atypical Glandular Cells of Undetermined Significance (Evan) On Cervical Pap Smear History of Loop Electrosurgical Excision Procedure (Leep) of Cervix Affecting History of Depression Family History of Congenital Heart Defect Pcos (Polycystic Ovarian Syndrome) History of Iufd Abnormal Glucose Affecting Maternal Care Due to Low Transverse Uterine Scar From Previous Delivery Former patient of Dr Jairo Almaguer, last seen 2013. Followed by Dr Woods DIRECT CHILL CASTING OPERATOR. Presents today to establish care with Dr Tan. Notes it is increasingly difficult to see her current PCP, has had appt cancelled twice recently. Notes psychiatry provider had recently ordered lab work and asked her to follow-up with her PCP regarding the results of that lab work. She is scheduled appointments but then was unable to see her PCP. 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 Notes works in [place]. Notes long commute, working multimedia artist. Has had weight gain. Notes currently . Notes gestational DM in the past, took metformin, did not seem to help much. Notes she has seen needle valve operator at [facility] for weight loss in the past but was not very helpful. Labwork: September 2021 ER/Hospitalization: none reported Outside records: none available at the time of her visit. GERD:without current complaints Review of Systems Constitutional: Positive for unexpected weight change. Psychiatric/Behavioral: The patient is nervous/anxious. Objective BP 102/68 Pulse 87 Ht 162.6 cm (5' 4 ) Wt 103 kg (227 lb) LMP 07/08/2019 SpO2 97% BMI 38.96 kg/m? Physical Exam Vitals and nursing note reviewed. Constitutional: Appearance: Normal appearance. HENT: Head: Normocephalic and atraumatic. Eyes: Conjunctiva/sclera: Conjunctivae normal. Neck: Thyroid: No thyroid mass or thyromegaly. Vascular: Normal carotid pulses. Cardiovascular: Rate and Rhythm: Normal rate and regular rhythm. Pulses: Carotid pulses are 2+ on the right side and 2+ on the left side. Radial pulses are 2+ on the right side. Heart sounds: Normal heart sounds. Pulmonary: Effort: Pulmonary effort is normal. Breath sounds: Normal breath sounds. Abdominal: General: Bowel sounds are normal. Musculoskeletal: Right lower leg: No edema. Left lower leg: No edema. Skin: General: Skin is warm and dry. Neurological: General: No focal deficit present. Mental Status: She is alert and oriented to person, place, and time. ALLERGIES Allergen Reactions - Augmentin [Amoxicil* Diarrhea, Vomiting MEDICATIONS venlafaxine (EFFEXOR) 100 mg tablet, Take 100 mg by mouth twice daily. levonorgestrel (MIRENA) 20 mcg/24 hours (5-6 yrs) 52 mg IUD, 1 Each by INTRAUTERINE route as directed. OMEPRAZOLE ORAL, Take by mouth. albuterol HFA (PROVENTIL HFA, VENTOLIN HFA) 90 mcg/actuation inhaler, Inhale 2 Puffs as instructed every 6 hours as needed for Wheezing/Shortness of Breath. PAST MEDICAL HISTORY Diagnosis Date - Anemia - Atypical glandular cells of undetermined significance (EVAN) on cervical Pap smear 02/27/2016 - Bilateral ovarian cysts follicular; TVUS 10/2011 - Depressive disorder, not elsewhere classified - Infertility, female - PCOS (polycystic ovarian syndrome) - pmh 06/16/05 [facility]GSIL-LEEP - Vaginal candidiasis - Varicella without mention of complication @ 4yrs of age Social History Tobacco Use - Smoking status: Never Smoker - Smokeless tobacco: Never Used Vaping Use - Vaping Use: Never used Substance Use Topics - Alcohol use: Not Currently Comment: ocaasionally - Drug use: No Comment: last marijuana use in 2008 Component Latest Ref Rng AND Units 10/07/2021 WBC 3.70 - 11.00 k/uL 6.67 RBC 3.90 - 5.20 m/uL 4.84 Hemoglobin 11.5 - 15.5 g/dL 14.3 Hematocrit 36.0 - 46.0 % 42.2 MCV 80.0 - 100.0 fL 87.2 MCH 26.0 - 34.0 pg 29.5 MCHC 30.5 - 36.0 g/dL 33.9 RDW-CV 11.5 - 15.0 % 13.8 Platelet Count 150 - 400 k/uL 255 MPV 9.0 - 12.7 fL 10.2 Neut% % 62.0 Abs Neut (ANC) 1.45 - 7.50 k/uL 4.13 Lymph% % 26.8 Abs Lymph 1.00 - 4.00 k/uL 1.79 [place]% % 7.8 Abs [place] <0.87 k/uL 0.52 Eosin% % 2.4 Abs Eosin <0.46 k/uL 0.16 Baso% % 0.7 Abs Baso <0.11 k/uL 0.05 Immature Gran % % 0.3 IMMATURE GRANS (ABS) <0.10 k/uL <0.03 NRBC /100 WBC 0.0 Absolute nRBC <0.01 k/uL <0.01 DTYPE Auto Protein, Total 6.3 - 8.0 g/dL 7.1 Albumin 3.9 - 4.9 g/dL 4.1 Calcium 8.5 - 10.2 mg/dL 9.3 Bilirubin, Total 0.2 - 1.3 mg/dL 0.2 Alkaline Ph (more content not included)... [facility] 11-03-2021 History of Present illness Narrative SUBJECTIVE: DEPRESSION SCREENING Never done HEPATITIS C SCREENING Never done HPI Gomez Celis is a 36 year old female. [facility] signficant from ACTIVE PROBLEM LIST Atypical Glandular Cells of Undetermined Significance (Evan) On Cervical Pap Smear History of Loop Electrosurgical Excision Procedure (Leep) of Cervix Affecting History of Depression Family History of Congenital Heart Defect Pcos (Polycystic Ovarian Syndrome) History of Iufd Abnormal Glucose Affecting Maternal Care Due to Low Transverse Uterine Scar From Previous Delivery Former patient of Dr Jairo Almaguer, last seen 2013. Followed by Dr Woods DIRECT CHILL CASTING OPERATOR. Presents today to establish care with Dr Tan. Notes it is increasingly difficult to see her current PCP, has had appt cancelled twice recently. Notes psychiatry provider had recently ordered lab work and asked her to follow-up with her PCP regarding the results of that lab work. She is scheduled appointments but then was unable to see her PCP. 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 Notes works in [place]. Notes long commute, working multimedia artist. Has had weight gain. Notes currently . Notes gestational DM in the past, took metformin, did not seem to help much. Notes she has seen needle valve operator at [facility] for weight loss in the past but was not very helpful. Labwork: September 2021 ER/Hospitalization: none reported Outside records: none available at the time of her visit. GERD:without current complaints Review of Systems Constitutional: Positive for unexpected weight change. Psychiatric/Behavioral: The patient is nervous/anxious. Objective BP 102/68 Pulse 87 Ht 162.6 cm (5' 4 ) Wt 103 kg (227 lb) LMP 07/08/2019 SpO2 97% BMI 38.96 kg/m Physical Exam Vitals and nursing note reviewed. Constitutional: Appearance: Normal appearance. HENT: Head: Normocephalic and atraumatic. Eyes: Conjunctiva/sclera: Conjunctivae normal. Neck: Thyroid: No thyroid mass or thyromegaly. Vascular: Normal carotid pulses. Cardiovascular: Rate and Rhythm: Normal rate and regular rhythm. Pulses: Carotid pulses are 2+ on the right side and 2+ on the left side. Radial pulses are 2+ on the right side. Heart sounds: Normal heart sounds. Pulmonary: Effort: Pulmonary effort is normal. Breath sounds: Normal breath sounds. Abdominal: General: Bowel sounds are normal. Musculoskeletal: Right lower leg: No edema. Left lower leg: No edema. Skin: General: Skin is warm and dry. Neurological: General: No focal deficit present. Mental Status: She is alert and oriented to person, place, and time. ALLERGIES Allergen Reactions Augmentin [Amoxicil* Diarrhea, Vomiting MEDICATIONS venlafaxine (EFFEXOR) 100 mg tablet, Take 100 mg by mouth twice daily. levonorgestrel (MIRENA) 20 mcg/24 hours (5-6 yrs) 52 mg IUD, 1 Each by INTRAUTERINE route as directed. OMEPRAZOLE ORAL, Take by mouth. albuterol HFA (PROVENTIL HFA, VENTOLIN HFA) 90 mcg/actuation inhaler, Inhale 2 Puffs as instructed every 6 hours as needed for Wheezing/Shortness of Breath. PAST MEDICAL HISTORY Diagnosis Date Anemia Atypical glandular cells of undetermined significance (EVAN) on cervical Pap smear 02/27/2016 Bilateral ovarian cysts follicular; TVUS 10/2011 Depressive disorder, not elsewhere classified Infertility, female PCOS (polycystic ovarian syndrome) pmh 06/16/05 HGSIL-LEEP Vaginal candidiasis Varicella without mention of complication @ 4yrs of age Social History Tobacco Use Smoking status: Never Smoker Smokeless tobacco: Never Used Vaping Use Vaping Use: Never used Substance Use Topics Alcohol use: Not Currently Comment: ocaasionally Drug use: No Comment: last marijuana use in 2008 Component Latest Ref Rng & Units 10/07/2021 WBC 3.70 - 11.00 k/uL 6.67 RBC 3.90 - 5.20 m/uL 4.84 Hemoglobin 11.5 - 15.5 g/dL 14.3 Hematocrit 36.0 - 46.0 % 42.2 MCV 80.0 - 100.0 fL 87.2 MCH 26.0 - 34.0 pg 29.5 MCHC 30.5 - 36.0 g/dL 33.9 RDW-CV 11.5 - 15.0 % 13.8 Platelet Count 150 - 400 k/uL 255 MPV 9.0 - 12.7 fL 10.2 Neut% % 62.0 Abs Neut (ANC) 1.45 - 7.50 k/uL 4.13 Lymph% % 26.8 Abs Lymph 1.00 - 4.00 k/uL 1.79 [place]% % 7.8 Abs [place] <0.87 k/uL 0.52 Eosin% % 2.4 Abs Eosin <0.46 k/uL 0.16 Baso% % 0.7 Abs Baso <0.11 k/uL 0.05 Immature Gran % % 0.3 IMMATURE GRANS (ABS) <0.10 k/uL <0.03 NRBC /100 WBC 0.0 Absolute nRBC <0.01 k/uL <0.01 DTYPE Auto Protein, Total 6.3 - 8.0 g/dL 7.1 Albumin 3.9 - 4.9 g/dL 4.1 Calcium 8.5 - 10.2 mg/dL 9.3 Bilirubin, Total 0.2 - 1.3 mg/dL 0.2 Alkaline Phosphatase 34 - 123 U/L 83 AST 13 - 35 U/L 28 ALT 7 - 38 U/L 37 Glucose 74 - 99 mg/dL 124 (H) BUN 7 - 21 mg/dL 17 Creatinine 0.58 - 0.96 mg/dL 0.81 Sodium 136 - 144 mmol/L 138 Potassium 3.7 - 5.1 mmol/L 4.4 Chloride 97 - 105 mmol/L 101 CO2 22 - 30 mmol/L 24 Anion Gap 9 - 18 mmol/L 13 eGFR >=60 mL/min/1.73m 97 Cholesterol, Total <200 mg/dL 209 (H) Triglyceride <150 mg/dL 105 HDL Cholesterol >39 mg/dL 41 Non HDL Cholesterol <130 mg/dL 168 (H) Fasting Time hrs 10 VLDL Cholesterol <30 mg/dL 21 TC:HDL Ratio <5.10 5.10 (H) LDL Cholesterol <100 mg/dL 147 (H) LDL:HDL Ratio <2.54 3.59 (H) Testosterone Free 0.06 - 1.00 ng/dL 1.01 (H) Testosterone 8 - 60 ng/dL 42 Hemoglobin A1C 4.3 - 5.6 % 5.8 (H) Estimated Average Glucose mg/dL 120 TSI Qualitative Negative Negative TSI <0.55 IU/L 0.10 FSH See comment mIU/mL 4.3 DHEA-S 60.9 - 337.0 ug/dL 82.4 Glucose, Fasting 74 - 99 mg/dL 108 (H) Free T4 0.9 - 1.7 ng/dL 0.8 (L) Free T3 2.3 - 4.1 pg/mL 3.2 Reverse T3 9.0 - 27.0 ng/dL 8.5 (L) TSH 0.270 - 4.200 mIU/L 2.420 Vitamin D 25 Hydroxy 31.0 - 80.0 ng/mL 26.6 (L) Bilirubin, Conjug <0.2 mg/dL <0.2 ASSESSMENT/PLAN: 1. Elevated glucose - ICD9: 790.29, ICD10: R73.09 (primary diagnosis) - HGB A1C - CONSULT TO NUTRITION THERAPY 2. Screening for thyroid disorder - ICD9: V77.0, ICD10: Z13.29 - TSH BLD - T4 FREE/FREE THYROX - THYROID PEROXIDASE ANTIBODY BLOOD 3. Screening for hepatitis C declined - ICD9: V64.2, ICD10: Z53.20 4. Need for hepatitis C screening test - ICD9: V73.89, ICD10: Z11.59 - HEP C AB IA W/CONF SCRN 5. Weight gain - ICD9: 783.1, ICD10: R63.5 - CONSULT TO NUTRITION THERAPY 6. History of depression - ICD9: V11.8, ICD10: Z86.59 7. Anxiety - ICD9: 300.00, ICD10: F41.9 Seeing psychiatric provider in [place]. Has recently been on leave. Schedule appt to establish with PCP 6 mos - Dr Talampas Recheck labs, schedule follow up with me 3 months Schedule appt with Dr Woods. Lee Ann Zuleta APRN.CNS Medical Decision Making: Problems: Moderate: 1+ chronic illnesses with change Data: Independent interpretation of test from other physician/QHCP Medical Decision Making Level: 4 - Moderate documented in this encounter [facility] 10-22-2021 Note HNO ID: [id number] Author: Fiorella Dhillon APRN.IRIS Service: ? Author Type: Nurse Practitioner Type: Progress Notes Filed: 10/22/2021 10:16 AM Note Text: Telemedicine Visit - Distance Health Virtual Visit Note Patient seen on [employer] Online platform. Location of patient: [place] History of Present Illness: Gomez Celis is a 36 year old year old female with a history of onset 1 day ago; with left eye itchy, swollen, red and awakened with crust. Thought to be related to allergies but with crust feels it is pink eye. Takes daily Shi for allergy symptoms. Denies URI symptoms. Positive for Redness, Itching and Crusting in AM and Negative for Change in vision, Pain, Injury, Fevers, Chills/Sweats, URI Symptoms and Sick contact exposure PAST MEDICAL HISTORY Diagnosis Date - Anemia - Atypical glandular cells of undetermined significance (EVAN) on cervical Pap smear 02/27/2016 - Bilateral ovarian cysts follicular; TVUS 10/2011 - Depressive disorder, not elsewhere classified - Infertility, female - PCOS (polycystic ovarian syndrome) - pmh 06/16/05 HGSIL-LEEP - Vaginal candidiasis - Varicella without mention of complication @ 4yrs of age PAST SURGICAL HISTORY Procedure Laterality Date - DELIVERY ONLY 12/2009 , low transverse - IUD REMOVAL ([employer] DEPT)_*FL 02/22/2016 At [facility] - OFFICE LEEP 2004 - PAST SURGICAL HISTORY OF 3RD GRADE NEEDLE REMOVED FROM FOOT - PAST SURGICAL HISTORY OF WISDOM TEETH EXTRACTED FAMILY HISTORY Problem Relation Age of Onset - Depression Father - Depression Mother - Thyroid Mother - No Known Problems Sister - No Known Problems Brother - Diabetes Maternal Grandmother - Dementia Maternal Grandfather - Breast Cancer Paternal Grandmother - Aneurysm Paternal Grandmother - Colon Cancer Paternal Grandfather - Heart Attack Paternal Grandfather - No Known Problems Daughter - other (IUFD 20 weeks) Son Social History Tobacco Use - Smoking status: Never Smoker - Smokeless tobacco: Never Used Vaping Use - Vaping Use: Never used Substance Use Topics - Alcohol use: Not Currently Comment: ocaasionally - Drug use: No Comment: last marijuana use in 2008 Current Outpatient Medications Medication Sig - levonorgestrel (MIRENA) 20 mcg/24 hours (5-6 yrs) 52 mg IUD 1 Each by INTRAUTERINE route as directed. - magnesium oxide (MAG-OX) 400 mg (241.3 mg magnesium) tablet Take 1 tablet by mouth daily at bedtime. - sertraline (ZOLOFT) 50 mg tablet take 1 tablet by mouth once daily for 10 days , THEN 1 AND 1/2 TABS FOR 20, THEN USE DIRECTED - Cholecalciferol, Vitamin D3, 25 mcg (1,000 unit) cap - hydrOXYzine HCl (ATARAX) 25 mg tablet take 1/2 to 2 tablets by mouth every 8 hours if needed for anxiety allergies itching or sleep (Patient not taking: Reported on 10/30/2020) - Insulin Syringe-Needle U-100 0.5 mL 29 gauge x 1/2 use one insulin pen needle daily for insulin injection, brand appropriate to match insulin pen (Patient not taking: Reported on 04/08/2020 ) - labetalol (TRANDATE) 100 mg tablet take 1 tablet by mouth at bedtime for MIGRAINE PREVENTION (Patient not taking: Reported on 10/30/2020) - chlorpheniramine (CHLORTRIMETON) 4 mg tablet take 1 tablet by mouth at bedtime and every 4 hours TO PREVENT MORNING HEADACHE (Patient not taking: Reported on 10/30/2020) - OMEPRAZOLE ORAL Take by mouth. - Ghfqiaxy-Pm-Tuu-Fe-FA ( VITAMIN) tab Take 1 tablet by mouth. - albuterol HFA (PROVENTIL HFA, VENTOLIN HFA) 90 mcg/actuation inhaler Inhale 2 Puffs as instructed every 6 hours as needed for Wheezing/Shortness of Breath. No current facility-administered medications for this visit. ALLERGIES Allergen Reactions - Augmentin [Amoxicil* Diarrhea, Vomiting VIDEO EXAMINATION (Examination performed via Video enabled technology) General Appearance: Well in appearance 36 year old year old female in NAD Eyes: Normal Pupil Size PERRLA EOMI Right: normal without acute findings Left: Moderate Conjunctival injection and Upper Eyelid With diffuse edema (allergy appearance), mild opaque crust noted to lower eyelid margin. Sclera overall white. ASSESSMENT/PLAN: 1. Acute atopic conjunctivitis of left eye - ICD9: 372.05, ICD10: H10.12 Allergic suspect; discussed bacterial symptoms should they develop recommend f/u for re- eval - see medication orders - course and contagiousness issues discussed, including hand washing. - Cool/Tepid compresses or eye rinses - ED if high fever, development of periorbital redness or swelling, eye pain, visual changes, concerns or if symptoms persist. - OLOPATADINE 0.1 % EYE DROPS Fiorella Dhillon APRN.CNP PLAN: Olopatadine as written Cool/Tepid compresses Hand washing OTC Artificial tears as directed Fiorella Dhillon APRN.CNP If you let us know who your primary care provider is, we will send them a notification of today?s visit th (more content not included)... [facility] 10-22-2021 Instructions Fiorella Dhillon APRN.CNP - 10/22/2021 10:15 AM EDT Patanol 1 drop left eye twice daily. Can place in both eyes if needed Consider artificial tear or visine to hydrate the eye Cool compress or eye wash for discomfort Avoid rubbing or touching as much as possible Good handwashing Avoid eye make up until symptoms have resolved Follow up if fail to improve or worsen as discussed Eye Allergies and Allergic Conjunctivitis The eyes are one of the most sensitive and vulnerable organs in the body. Airborne allergens and other particles can land directly on the surface of the eye, causing irritation and redness. Although tears constantly wash the eyes, they can't always keep out allergens like pollen or pet dander. Because of this, allergies that flare up in the eyes, also known as ocular allergies, are common. What Are Ocular Allergies? Eye allergies are no different than allergies that affect your sinuses, nose or lungs. When an allergen comes in contact with your eyes, your body releases histamine - a chemical produced in reaction to a substance that the immune system can't tolerate. Special cells called mast cells make histamine. These cells are present throughout the body but are highly concentrated in the eyes. Location of allergy symptoms depends somewhat on where the allergen has come into contact with your body. Ocular allergens tend to be airborne (as are most other allergens). The most frequent allergic triggers include: Pollen Pet hair or dander Dust Some medicines There also are some triggers that irritate the eyes but are not true allergies, such as: Cigarette smoke Perfume Diesel Exhaust What Is Allergic Conjunctivitis? Conjunctivitis, also known as pink eye, is an inflammation of the conjunctiva (the membrane lining under the eyelids) and can be caused by allergies or infections. Allergic conjunctivitis and conjunctivitis caused by an infection can be hard to distinguish. Both have similar symptoms, such as redness, itching and swelling in the eye area. However, when conjunctivitis is caused by allergies, both eyes are usually affected. Viral or bacterial conjunctivitis can affect either a single eye or both eyes. It is important to pinpoint whether someone has conjunctivitis because of allergies or infection since each condition has a different treatment. Common symptoms of allergic conjunctivitis are: Redness and itching under the eyelid Excessive watering Swelling of the eyeball Common symptoms of conjunctivitis associated with infection are: Feeling that eyelids are glued shut upon waking Sensitivity to light Pus on the surface of the eye Burning sensation Treatment If you have ocular allergies or any other kind of allergic disease, the most effective treatment is prevention: try to avoid the allergens that trigger symptoms. For many, this is easier said than done, especially if your triggers are airborne, such as pollen. When ocular allergies can't be controlled, there are several medications that may help relieve symptoms. Most of these treatments come in a topical form - such as eye drops or an ointment. Eye drops, also called tear substitutes, can help in two ways: (1) by physically washing away allergens; and (2) by moistening the eye, which can become dry and red when irritated. Eye drops that contain medications to help reduce allergy symptoms also are available. Topical Decongestants Some eye drops contain topical decongestants that constrict small blood vessels and help reduce eye redness. These eye drops are available without a prescription. If you use eye drops with topical decongestants, be careful not to use them for prolonged periods. Overuse of topical decongestants can lead to increased swelling and redness that can last even after you stop using the drops. This is known as a rebound effect. Topical decongestants, or any kind of eye drop containing chemicals that narrow blood vessels (called vasoconstrictors), shouldn't be used if you have glaucoma. Glaucoma is damage to the eye that results from increased pressure in the eyeball (also called intraocular pressure, or IOP). Vasoconstrictors can worsen this condition. Topical Antihistamines Eye drops containing antihistamines can reduce redness and swelling in the eye. Antihistamines block the effects of the chemical histamine, which is responsible for allergic symptoms like swelling, redness and itching. Mild antihistamine eye drops are available over the counter, but stronger ones are available by prescription. Helpful Strategies Chilling any topical medications can help relieve redness and itching of the eyes. In addition, using cold compresses can help reduce some of the discomfort associated with conjunctivitis. A washcloth soaked in cold water works well. Oral nonsteroidal anti-inflammatory drugs (NSAIDs), such as aspirin and ibuprofen-based medications, also can help reduce inflammation and symptoms like swelling in some patients. Steroids When topically administered medications like antihistamines and vasoconstrictors fail to help alleviate conjunctivitis symptoms, your doctor may prescribe topical steroids. Steroid eye drops can help control chronic and acute cases of conjunctivitis but should only be used as prescribed by your doctor. Steroids applied directly to the eye can cause a sharp increase in ocular pressure that can result in significant eye damage or glaucoma. Prolonged use of topical steroids in the eyes also can lead to cataracts. Cataracts form when the cornea on the surface of the eye gradually becomes opaque, causing blindness. Because steroids can promote the growth of viruses, your doctor will want to rule out viral conjunctivitis as the cause of your eye problems before prescribing topical steroids. Immunotherapy Immunotherapy, also known as allergy shots, is another option for treating allergic conjunctivitis. Immunotherapy is a process that gradually desensitizes you to your allergens. Tiny amounts of the allergen are injected under the skin over the course of several years. During immunotherapy, your body will begin to develop a normal immune response to the allergen, and you won't experience red, watery eyes every time you are around pets or pollen. Although immunotherapy may take several months to produce results, it can eventually greatly diminish the need for eye drops or other medication. When To See an Hospice Clinical Marketer You should consult with an fire pot operator-toys and games hand finisher if you persistently have red, itchy, watery eyes. Many times, with the help of a doctor, ocular allergies and conjunctivitis can be controlled. Copyright 2000 [employer] and [employer] documented in this encounter [facility] 10-22-2021 History of Present illness Narrative Telemedicine Visit - Distance Health Virtual Visit Note Patient seen on [employer] platform. Location of patient: [place] History of Present Illness: Gomez Celis is a 36 year old year old female with a history of onset 1 day ago; with left eye itchy, swollen, red and awakened with crust. Thought to be related to allergies but with crust feels it is pink eye. Takes daily Shi for allergy symptoms. Denies URI symptoms. Positive for Redness, Itching and Crusting in AM and Negative for Change in vision, Pain, Injury, Fevers, Chills/Sweats, URI Symptoms and Sick contact exposure PAST MEDICAL HISTORY Diagnosis Date Anemia Atypical glandular cells of undetermined significance (EVAN) on cervical Pap smear 02/27/2016 Bilateral ovarian cysts follicular; TVUS 10/2011 Depressive disorder, not elsewhere classified Infertility, female PCOS (polycystic ovarian syndrome) pmh 06/16/05 HGSIL-LEEP Vaginal candidiasis Varicella without mention of complication @ 4yrs of age PAST SURGICAL HISTORY Procedure Laterality Date DELIVERY ONLY 12/2009 , low transverse IUD REMOVAL (WIRE [employer]ASKET [employer] DEPT)_*FL 02/22/2016 [facility] OFFICE LEEP 2004 PAST SURGICAL HISTORY OF 3RD GRADE NEEDLE REMOVED FROM FOOT PAST SURGICAL HISTORY OF WISDOM TEETH EXTRACTED FAMILY HISTORY Problem Relation Age of Onset Depression Father Depression Mother Thyroid Mother No Known Problems Sister No Known Problems Brother Diabetes Maternal Grandmother Dementia Maternal Grandfather Breast Cancer Paternal Grandmother Aneurysm Paternal Grandmother Colon Cancer Paternal Grandfather Heart Attack Paternal Grandfather No Known Problems Daughter other (IUFD 20 weeks) Son Social History Tobacco Use Smoking status: Never Smoker Smokeless tobacco: Never Used Vaping Use Vaping Use: Never used Substance Use Topics Alcohol use: Not Currently Comment: ocaasionally Drug use: No Comment: last marijuana use in 2008 Current Outpatient Medications Medication Sig levonorgestrel (MIRENA) 20 mcg/24 hours (5-6 yrs) 52 mg IUD 1 Each by INTRAUTERINE route as directed. magnesium oxide (MAG-OX) 400 mg (241.3 mg magnesium) tablet Take 1 tablet by mouth daily at bedtime. sertraline (ZOLOFT) 50 mg tablet take 1 tablet by mouth once daily for 10 days , THEN 1 AND 1/2 TABS FOR 20, THEN USE DIRECTED Cholecalciferol, Vitamin D3, 25 mcg (1,000 unit) cap hydrOXYzine HCl (ATARAX) 25 mg tablet take 1/2 to 2 tablets by mouth every 8 hours if needed for anxiety allergies itching or sleep (Patient not taking: Reported on 10/30/2020) Insulin Syringe-Needle U-100 0.5 mL 29 gauge x 1/2 use one insulin pen needle daily for insulin injection, brand appropriate to match insulin pen (Patient not taking: Reported on 04/08/2020 ) labetalol (TRANDATE) 100 mg tablet take 1 tablet by mouth at bedtime for MIGRAINE PREVENTION (Patient not taking: Reported on 10/30/2020) chlorpheniramine (CHLORTRIMETON) 4 mg tablet take 1 tablet by mouth at bedtime and every 4 hours TO PREVENT MORNING HEADACHE (Patient not taking: Reported on 10/30/2020) OMEPRAZOLE ORAL Take by mouth. Uoqehijy-Dv-Jon-Fe-FA ( VITAMIN) tab Take 1 tablet by mouth. albuterol HFA (PROVENTIL HFA, VENTOLIN HFA) 90 mcg/actuation inhaler Inhale 2 Puffs as instructed every 6 hours as needed for Wheezing/Shortness of Breath. No current facility-administered medications for this visit. ALLERGIES Allergen Reactions Augmentin [Amoxicil* Diarrhea, Vomiting VIDEO EXAMINATION (Examination performed via Video enabled technology) General Appearance: Well in appearance 36 year old year old female in NAD Eyes: Normal Pupil Size PERRLA EOMI Right: normal without acute findings Left: Moderate Conjunctival injection and Upper Eyelid With diffuse edema (allergy appearance), mild opaque crust noted to lower eyelid margin. Sclera overall white. ASSESSMENT/PLAN: 1. Acute atopic conjunctivitis of left eye - ICD9: 372.05, ICD10: H10.12 Allergic suspect; discussed bacterial symptoms should they develop recommend f/u for re- eval - see medication orders - course and contagiousness issues discussed, including hand washing. - Cool/Tepid compresses or eye rinses - ED if high fever, development of periorbital redness or swelling, eye pain, visual changes, concerns or if symptoms persist. - OLOPATADINE 0.1 % EYE DROPS Fiorella Dhillon APRN.CNP PLAN: Olopatadine as written Cool/Tepid compresses Hand washing OTC Artificial tears as directed Fiorella Dhillon APRN.CNP If you let us know who your primary care provider is, we will send them a notification of today s visit through our electronic medical records system. Since not all providers have access to our notifications, we strongly encourage you to share the following record of today s visit with your primary care provider at your next visit. This will help in providing you the best care. If you do not have an established Primary Care physician and would like to continue care with a [facility] Virtual Primary Care physician, please ask your provider to place a Establish Primary Care order. Use [employer] to manage your care, wherever you are, 08/02, on your mobile device or computer. [employer] connects you to [employer] so you can access all your health information in one place and also schedule and request virtual appointments with primary care providers. documented in this encounter [facility] documented as of this encounter (statuses as of 10/22/2021) [facility] History of Past illness Narrative* Problem Noted Date Resolved Date History of influenza 08/24/2019 08/31/2019 Overview: 08/24/2019Patient states she was diagnosed with Influenza A 08/11/2019 by PCP. She is currentky on antibiotics for cough. Will be finished in 3 days. IUFD at 20 weeks or more of gestation 05/30/2019 12/19/2019 with history of section, ante 03/06/2019 06/17/2019 Overview: 05/10/19: OP NOTE, LTCS- CPD, Failure to progress (unsure of dilation) Brow presentation. Fariba Scott MD Patient travels 03/06/2019 12/19/2019 Overview: 03/06/2019 Patient travelled to [place] 12/2018. Zika Virus screening done at [facility] 08/24/2019Patient travelled to [place] 04/2019. Patient had Zika Virus screening after her travels that were negative. results in Epic. TKRN August 31, 2019 No further testing needed. Lizzette Woods MD Patient request for diagnostic testing 9 12/19/2019 Overview: 03/06/2019 Patient desires nuchal ultrasound and HIV testing. 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 She is currentky on antibiotics for cough. Will be finished in 3 days. IUFD at 20 weeks or more of gestation 05/30/2019 12/19/2019 with history of section, ante 03/06/2019 06/17/2019 Overview: 05/10/19: OP NOTE, LTCS- CPD, Failure to progress (unsure of dilation) Brow presentation. Fariba Scott MD Patient travels 03/06/2019 12/19/2019 Overview: 03/06/2019 Patient travelled to [place] 12/2018. Zika Virus screening done at [facility].TKR[facility] 08/24/2019Patient travelled to [place] 04/2019. Patient had Zika Virus screening after her travels that were negative. results in [facility]. TKRN August 31, 2019 No further testing needed. Lizzette Woods MD Patient request for diagnostic testing 9 12/19/2019 Overview: 03/06/2019 Patient desires nuchal ultrasound and HIV testing. 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 She is currentky on antibiotics for cough. Will be finished in 3 days. IUFD at 20 weeks or more of gestation 05/30/2019 12/19/2019 with history of section, ante 03/06/2019 06/17/2019 Overview: 05/10/19: OP NOTE, LTCS- CPD, Failure to progress (unsure of dilation) Brow presentation. Fariba Scott MD Patient travels 03/06/2019 12/19/2019 Overview: 03/06/2019 Patient travelled to [place] 12/2018. Zika Virus screening done at [facility] 08/24/2019Patient travelled to [place] 04/2019. Patient had Zika Virus screening after her travels that were negative. results in Epic. TKRN August 31, 2019 No further testing needed. Lizzette Woods MD Patient request for diagnostic testing 9 12/19/2019 Overview: 03/06/2019 Patient desires nuchal ultrasound and HIV testing. 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 She is currentky on antibiotics for cough. Will be finished in 3 days. IUFD at 20 weeks or more of gestation 05/30/2019 12/19/2019 with history of section, ante 03/06/2019 06/17/2019 Overview: 05/10/19: OP NOTE, LTCS- CPD, Failure to progress (unsure of dilation) Brow presentation. Fariba Scott MD Patient travels 03/06/2019 12/19/2019 Overview: 03/06/2019 Patient travelled to [place] 12/2018. Zika Virus screening done at [facility].TKRN 08/24/2019Patient travelled to [place] 04/2019. Patient had Zika Virus screening after her travels that were negative. results in [facility]. TKRN August 31, 2019 No further testing needed. Lizzette Woods MD Patient request for diagnostic testing 9 12/19/2019 Overview: 03/06/2019 Patient desires nuchal ultrasound and HIV testing. 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 She is currentky on antibiotics for cough. Will be finished in 3 days. IUFD at 20 weeks or more of gestation 05/30/2019 12/19/2019 with history of section, ante 03/06/2019 06/17/2019 Overview: 05/10/19: OP NOTE, LTCS- CPD, Failure to progress (unsure of dilation) Brow presentation. Fariba Scott MD Patient travels 03/06/2019 12/19/2019 Overview: 03/06/2019 Patient travelled to [place] 12/2018. Zika Virus screening done at [facility].TKRN 08/24/2019Patient travelled to [place] 04/2019. Patient had Zika Virus screening after her travels that were negative. results in [facility]. TKRN August 31, 2019 No further testing needed. Lizzette Woods MD Patient request for diagnostic testing 9 12/19/2019 Overview: 03/06/2019 Patient desires nuchal ultrasound and HIV testing. 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 She is currentky on antibiotics for cough. Will be finished in 3 days. IUFD at 20 weeks or more of gestation 05/30/2019 12/19/2019 with history of section, ante 03/06/2019 06/17/2019 Overview: 05/10/19: OP NOTE, LTCS- CPD, Failure to progress (unsure of dilation) Brow presentation. Fariba Scott MD Patient travels 03/06/2019 12/19/2019 Overview: 03/06/2019 Patient travelled to [place] 12/2018. Zika Virus screening done at [facility].TKRN 08/24/2019Patient travelled to [place] 04/2019. Patient had Zika Virus screening after her travels that were negative. results in Epic. TKRN August 31, 2019 No further testing needed. Lizzette Woods MD Patient request for diagnostic testing 9 12/19/2019 Overview: 03/06/2019 Patient desires nuchal ultrasound and HIV testing. 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 She is currentky on antibiotics for cough. Will be finished in 3 days. IUFD at 20 weeks or more of gestation 05/30/2019 12/19/2019 with history of section, ante 03/06/2019 06/17/2019 Overview: 05/10/19: OP NOTE, LTCS- CPD, Failure to progress (unsure of dilation) Brow presentation. Fariba Scott MD Patient travels 03/06/2019 12/19/2019 Overview: 03/06/2019 Patient travelled to [place] 12/2018. Zika Virus screening done at [facility] 08/24/2019Patient travelled to [place] 04/2019. Patient had Zika Virus screening after her travels that were negative. results in Epic. TKRN August 31, 2019 No further testing needed. Lizzette Woods MD Patient request for diagnostic testing 9 12/19/2019 Overview: 03/06/2019 Patient desires nuchal ultrasound and HIV testing. 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 Overview: Needs LEEP documented as of this encounter (statuses as of 06/02/2022) [facility] Diagnosis Acute atopic conjunctivitis of left eye- Primary Acute atopic conjunctivitis [facility] Diagnosis Elevated glucose- Primary Other abnormal glucose Screening for thyroid disorder Screening for hepatitis C declined Need for hepatitis C screening test Special screening examination for other specified viral diseases Weight gain Abnormal weight gain History of depression Personal history of other mental disorder Anxiety Anxiety state, unspecified [facility] Diagnosis Urinary frequency- Primary Vertigo Dizziness and giddiness [facility] Diagnosis Anxiety and depression- Primary Dysthymic disorder BMI 39.0-39.9,adult Body Mass Index 39.0-39.9, adult PTSD (post-traumatic stress disorder) Posttraumatic stress disorder Gastroesophageal reflux disease with esophagitis, unspecified whether hemorrhage Borderline diabetes mellitus Other abnormal glucose Mold exposure Contact with and (suspected) exposure to mold [facility] Diagnosis Encounter for person encountering health services- Primary [facility] Diagnosis Encounter for person encountering health services- Primary [facility] Diagnosis Kidney pain- Primary Renal colic [facility] Diagnosis Urinary frequency- Primary Acute lower UTI Urinary tract infection, site not specified documented in this encounter [facility] Reason for Referral Specialty Diagnoses / Procedures Referred By Asad christopher Referred To Contact Nutrition Diagnoses Elevated glucose Weight gain Procedures CONSULT TO NUTRITION THERAPY OFFICE/OUTPATIENT [facility] MDM 60-74 MINUTES Lee Ann Zuleta APRN.RUBBER COMPOUNDER FORMULATOR [address] [place] [address] Referral ID Status Reason Start Date Expiration Date Visits Requested Visits Authorized [id number] Authorized PCP Requested Referral 11/03/2021 11/03/2022 1 1 Specialty Diagnoses / Procedures Referred By Contac t Referred To Contact [facility] Diagnoses Vertigo Procedures CONSULT TO PHYSICAL THERAPY PHYSICAL THERAPY EVALUATION HIGH COMPLEX 45 MINS Deepti Saha, ZACH [address] [place] [address] [facility] [address] [place] [address] Referral ID Status Reason Start Date Expiration Date Visits Requested Visits Authorized [id number] Pending Review Auto-Generat ed Referral 11/24/2021 11/24/2022 1 1 Summary Purpose Family History No Family History Records Found Advance Directives No Advanced Directives Records Found Additional Source Comments Source Comments (unrecognize d section and content) In the event this informatio n is protected by the Federal Confidentiality of Alcohol and Drug Abuse Patient Records regulations: The Federal rules restrict any use of the information to criminally investigate or prosecute any alcohol or drug abuse patient.[facility] the event this information is protected by the Federal Confidentiality of Alcohol and Drug Abuse Patient Records regulations: The Federal rules restrict any use of the information to criminally investigate or prosecute any alcohol or drug abuse patient.[facility] the event this information is protected by the Federal Confidentiality of Alcohol and Drug Abuse Patient Records regulations: The Federal rules restrict any use of the information to criminally investigate or prosecute any alcohol or drug abuse patient.[facility] the event this information is protected by the Federal Confidentiality of Alcohol and Drug Abuse Patient Records regulations: The Federal rules restrict any use of the information to criminally investigate or prosecute any alcohol or drug abuse patient.[facility] the event this information is protected by the Federal Confidentiality of Alcohol and Drug Abuse Patient Records regulations: The Federal rules restrict any use of the information to criminally investigate or prosecute any alcohol or drug abuse patient.[facility] the event this information is protected by the Federal Confidentiality of Alcohol and Drug Abuse Patient Records regulations: The Federal rules restrict any use of the information to criminally investigate or prosecute any alcohol or drug abuse patient.[facility] the event this information is protected by the Federal Confidentiality of Alcohol and Drug Abuse Patient Records regulations: The Federal rules restrict any use of the information to criminally investigate or prosecute any alcohol or drug abuse patient.[facility] the event this information is protected by the Federal Confidentiality of Alcohol and Drug Abuse Patient Records regulations: The Federal rules restrict any use of the information to criminally investigate or prosecute any alcohol or drug abuse patient.[facility] Reason for Visit (unrecogniz ed section and content) Reason Comments New Patient Reason Comments Urinary Frequency burning with urinati on, nausea and vertigo x 1 day Reason Comments New Patient Reason Comments Established Patient Reason Comments Urinary Problem Reason Comments UTI Frequency, burning, low back pain x2 days Care Teams (unrecognized sec tion and content) Dental Service Technician Relationship Specialty Start Date End Date Jeff Tan MD [address] [place], [place] [phone] PCP - General Internal Medicine 11/03/21 Dental Service Technician Relationship Specialty Start Date End Date Jeff Tan MD [address] [place], [place] [id number] PCP - General Internal Medicine 11/03/21 Dental Service Technician Relationship Specialty Start Date End Date Jeff Tan MD [address] [place], [place] [phone] PCP - General Internal Medicine 11/03/21 Dental Service Technician Relationship Specialty Start Date End Date Jeff Tan MD [address] [place], [place] [id number] PCP - General Internal Medicine 11/03/21 Dental Service Technician Relationship Specialty Start Date End Date Jeff Tan MD [address] [place], [place] [id number] PCP - General Internal Medicine 11/03/21 Dental Service Technician Relationship Specialty Start Date End Date Mo Jacinto MD [address] [place], [place] [id number] PCP - General Family Medicine 06/01/22 Dental Service Technician Relationship Specialty Start Date End Date Mo Jacinto MD [address] [place], [place] [phone] PCP - General Family Medicine 06/01/22 INFORMATION SOURCE (unrecogn ized section and content) FOR RECORDS PERTAINING TO PATIENTS WHO ARE OR HAVE BEEN ENROLLED IN A CHEMICAL DEPENDENCY/SUBSTANCEABUSE PROGRAM, SOME INFORMATION MAY BE OMITTED. This clinical summary was aggregated from multiple sources. Caution should be exercised in using it in the provision of clinical care. This summary normalizes information from multiple sources, and as a consequence, information in this document may materially change the coding, format and clinical context of patient data. In addition, data may be omitted in some cases. CLINICAL DECISIONS SHOULD BE BASED ON THE PRIMARY CLINICAL RECORDS. [facility]. provides no warranty or guarantee of the accuracy or completeness of information in this document.
[2023-08-25 15:08] LABS: H. PYLORI STOOL AG Negative (Negative)
== END | disposition home or self-care (01) ==
PROVIDERS: PCP Family Medicine; Referring Provider Family Medicine; Visit Provider Family Medicine
DX: D50.9 Iron deficiency anemia, unspecified (principal); R79.89 Other specified abnormal findings of blood chemistry; K27.9 Peptic ulcer, site unspecified, unspecified as acute or chronic, without hemorrhage or perforation
CPT/HCPCS: 87338

== ENCOUNTER → 2024-03-17 | Outpatient (CLI) | payer BC, SELFPAY ==
[2024-03-17 15:41] LABS: Hematocrit 40.1 % (37-47); Hemoglobin 12.9 g/dL (12.0-15.0); Mean Corp Hgb Conc 32.2 g/dL (32-36); Mean Corpuscular Hgb 28.7 pg (27.0-32.0); Mean Corpuscular Volume 89.3 fL (81-99); Mean Platelet Vol. 11.4 fl (6.2-12.0); Platelet Count 310 K/mm3 (150-450); RBC Distribution Width SD 42.7 fl (35.1-43.9); Red Blood Count 4.49 M/mm3 (4.2-5.4); White Blood Count 6.9 K/mm3 (4.4-11.0)
[2024-03-17 15:57] LABS: Ferritin 11 ng/mL (8-252)
== END | disposition home or self-care (01) ==
LOC: MFPLAB 12:03
PROVIDERS: PCP Family Medicine; Visit Provider Internal Medicine Pulmonary Disease
DX: R06.02 Shortness of breath (principal)
CPT/HCPCS: 36415; 82728; 85027

== ENCOUNTER → 2025-06-27 | Outpatient (CLI) | payer BC, SELFPAY ==
[2025-06-27 15:23] LABS: Hematocrit 35.9 % (37-47); Hemoglobin 11.3 g/dL (12.0-15.0); Immature Granulocytes Count 0.010 X10^3/uL (0.0-0.0); Mean Corp Hgb Conc 31.5 g/dL (32-36); Mean Corpuscular Volume 85.9 fL (81-99); Mean Platelet Vol. 11.5 fl (6.2-12.0); NRBC Flagged by Analyzer 0 % (0-5); Platelet Count 372 K/mm3 (150-450); RBC Distribution Width CV 13.3 % (11.6-14.6); RBC Distribution Width SD 41.7 fl (35.1-43.9); Red Blood Count 4.18 M/mm3 (4.2-5.4); White Blood Count 6.4 K/mm3 (4.4-11.0)
[2025-06-27 15:47] LABS: PTHIN 54 pg/mL (11-61)
[2025-06-27 15:50] LABS: AST(SGOT) 21 U/L (<=31); Alanine Aminotransfer ALT/SGPT 14 U/L (<=34); Albumin, Serum 4.5 g/dL (3.5-5.0); Alkaline Phosphatase 51 U/L (35-104); Anion Gap 12 (5-15); BUN 13 mg/dL (4-19); BUN/Creat Ratio 16.2 RATIO (10-20); Calcium,Total 9.4 mg/dL (7.6-11.0); Carbon Dioxide 23.6 mmol/L (21.0-32.0); Chloride 104 mmol/L (98-108); Globulin 3.2 g/dL (2.2-4.2); Glucose 91 mg/dL (70-99); Potassium 4.2 mmol/L (3.3-5.1)
[2025-06-27 16:01] LABS: CRP < 3.00 mg/L (0.0-3.0)
[2025-06-27 16:25] LABS: Pro- Brain NATRIURETIC PEPTIDE 45 pg/mL (<=450)
[2025-06-29 04:07] LABS: PROGESTERONE 1.5 ng/mL (.)
[2025-07-02 00:07] LABS: PROEL- A/G Ratio 1.2 (0.7-1.7); PROEL- Albumin 3.8 g/dL (2.9-4.4); PROEL- Alpha-1 Globulin 0.2 g/dL (0.0-0.4); PROEL- Alpha-2 Globulin 0.8 g/dL (0.4-1.0); PROEL- Beta Globulin 1.1 g/dL (0.7-1.3); PROEL- Gamma Globulin 1.2 g/dL (0.4-1.8); PROEL- Globulin, Total 3.3 g/dL (2.2-3.9); PROEL- TOTAL PROTEIN 7.1 g/dL (6.0-8.5); PROEL-M-Spike Not Observed g/dL (Not Observed)
== END | disposition home or self-care (01) ==
LOC: MTLAB 13:01
PROVIDERS: PCP Family Medicine; Referring Provider Family Medicine; Visit Provider Family Medicine
DX: F33.1 Major depressive disorder, recurrent, moderate (principal); R25.2 Cramp and spasm; N95.1 Menopausal and female climacteric states; D50.9 Iron deficiency anemia, unspecified
CPT/HCPCS: 36415; 80053; 82670; 83880; 83970; 84144; 84165; 84402; 84443; 85025; 85652; 86140